=== PATIENT | female | born 1960 | race Caucasian/White ===

== ENCOUNTER 2019-12-07 10:24 | Outpatient (CLI) | payer MEDICARE, SELFPAY ==
--- NOTE | ~2019-12-07 | MM_ITS ---
EXAMINATION: MM screening [facility] BI w [facility]di HISTORY: Screening mammogram TECHNIQUE: Craniocaudal and mediolateral oblique 3-D tomosynthesis images were obtained and synthetic 2-D images were generated. CAD analysis was submitted and interpreted. COMPARISON: 10/16/2018, 03/19/2017, 10/19/2015 BREAST PARENCHYMAL COMPOSITION: The breasts are almost entirely fatty. FINDINGS: There is no evidence of suspicious mass, calcification, or architectural distortion to sugg est malignancy in either breast. There has been no suspicious interval change. IMPRESSION: 1. No mammographic evidence of malignancy. 2. Recommend routine screening mammography in one year. BI-RADS Category 1: Negative Reviewed, dictated and finalized at location A.
== END 2019-12-07 10:25 | disposition home or self-care (01) ==
LOC: ANHIMG 10:33
PROVIDERS: PCP Internal Medicine
DX: Z12.31 Encounter for screening mammogram for malignant neoplasm of breast (principal)
CPT/HCPCS: 77063; 77067

== ENCOUNTER 2021-01-04 18:07 | Emergency (ER) | payer MEDICARE, SELFPAY ==
--- NOTE | ~2021-01-04 | XR_ITS ---
EXAMINATION: XR chest 2V DATE: 01/04/2021 18:38 INDICATION: Asthma, shortness of breath and wheezing TECHNIQUE: PA and lateral views of the chest were obtained. COMPARISON: Chest radiograph dated 08/13/2018 FINDINGS: The lungs remain clear with no focal airspace opacities, pulmonary edema, pleural effusion or pneumot horax. Normal azygos lobe and fissure at the right upper lung zone. The cardiomediastinal silhouette is normal. Chronic mild anterior wedging at T11. There are bridging osteophytes at multiple levels in the spine, consistent with diffuse idiopathic skeletal hyperostosis (DISH). IMPRESSION: 1. No acute cardiopulmonary disease. Reviewed, dictated and finalized at location A.
[2021-01-04 18:19] VITALS: BP 172/95; PULSE 87; RESP 22; TEMP 36.9; O2SAT 98
--- NOTE | 2021-01-04 18:21 | ECG_ITS ---
Measurements Intervals [place] Rate: 80 P: 37 CT: 181 QRS: 53 QRSD: 90 T: 42 QT: 347 QTc: 401 Interpretive Statements SINUS RHYTHM BASELINE ARTIFACT- I, II, III, AVR, AVL, AVF, V2, V4-V6 NORMAL ECG Electronically Signed On 01-04-2021 19:37:19 CDT by Saurav Longo D.O.
[2021-01-04 18:40] LABS: Basophils Absolute Auto 0.1 K/mm3 (0.0-0.1); Basophils Percent Auto 0.4 % (0.2-1.2); Eosinophils Absolute Auto 0.2 K/mm3 (0-0.3); Eosinophils Percent Auto 1.4 % (0-4.4); Hematocrit 40.4 % (37.0-47.0); Hemoglobin 12.9 g/dL (12.0-15.0); Immature Granulocyte Absolute 0.06 K/mm3 (0.00-0.031); Immature Granulocyte Percent A 0.5 % (0-0.5); Lymphocytes Absolute Auto 3.24 K/mm3 (0.9-3.2); Lymphocytes Percent Auto 27.5 % (18.3-44.2); Mean Corpuscular HGB Conc 31.9 g/dl (32-36); Mean Corpuscular Hemoglobin 29.9 pg (26-34); Mean Corpuscular Volume 93.5 fl (80-100); Mean Platelet Volume 10.1 fl (7.4-10.4); Monocytes Absolute Auto 0.9 K/mm3 (0.1-0.6); Monocytes Percent Auto 7.8 % (2.6-8.5); Neutrophils Absolute Auto 7.4 K/mm3 (1.3-6.7); Neutrophils Percent Auto 62.4 % (45.5-73.1); Platelet Count Result 236 k/mm3 (150-375); Red Blood Count 4.32 M/mm3 (4.2-5.4); White Blood Count 11.8 K/mm3 (4.5-10.0)
[2021-01-04 18:52] LABS: Anion Gap 8 mmol/L (8-16); Blood Urea Nitrogen 18 mg/dL (7-17); Calcium 9.3 mg/dL (8.4-10.2); Carbon Dioxide 28 mmol/L (22-30); Chloride 102 mmol/L (98-107); Estimated CRCL calculation 80 ml/min; Estimated Glomerular Filt Rate 51; Glucose 129 mg/dL (65-110); Potassium 4.2 mmol/L (3.4-5.0); Sodium 138 mmol/L (137-145)
[2021-01-04 22:00] VITALS: BP 149/88; PULSE 80; RESP 16; O2SAT 98
[2021-01-04] MEDS: ALBUTEROL SULFATE NEB 2.5 MG/0.5 ML INH 5 MG INHALATION (22:17)
[2021-01-04] MEDS: IPRATROPIUM BR 0.02% INH SOLN 0.5 MG/2.5 ML VIAL INHALATION (22:18)
[2021-01-04 22:21] VITALS: PULSE 77; RESP 18
[2021-01-04 22:26] VITALS: PULSE 88; RESP 18
[2021-01-04] MEDS: methylPREDNISolone SOD SUCC 125 MG VIAL IV PUSH (22:35)
[2021-01-04] MEDS: BENZONATATE 100 MG CAPSULE 200 MG PO (22:37)
--- NOTE | 2021-01-04 23:10 | ED.GENADULT ---
HPI - General Adult General Chief complaint: Shortness of Breath/Dyspnea Stated complaint: sob Time Seen by Provider: 01/04/21 21:54 History of Present Illness HPI narrative: Patient 60-year-old female presents the emergency department with chief complaint of wheezing and shortness of breath. Patient reports she has history of asthma reports that she has had a little bit of a productive cough and reports that her rescue inhaler is not been completely helping her asthma symptoms. Patient reports that she called her doctor who said that they are not seeing sick patients in the office due to Covid and recommend that she come to the emergency department for a chest x-ray and a Covid test. Patient states that she is not having any hypoxia at home and reports this feels similar to whenever she had asthma exacerbations before in the past. Related Data Home Medications Medication Instructions Recorded Confirmed albuterol sulfate 90 mcg/actuation 2 puff INHALATION Q4-6H PRN gm 04/14/19 07/10/20 aerosol inhaler cholecalciferol (vitamin D3) 25 1,000 unit PO DAILY 04/14/19 07/10/20 mcg (1,000 unit) capsule fluticasone furoate 200 1 inhalation INHALATION DAILY 04/14/19 07/10/20 mcg-vilanterol 25 mcg/dose inhalation powder amino acids tablet PO DAILY tablet 10/26/19 07/10/20 apple cider vinegar 500 mg tablet 1,000 - 1,500 mg PO DAILY tablet 10/26/19 07/10/20 biotin 5,000 mcg sublingual tablet 5,000 mcg SUBLINGUAL DAILY 10/26/19 07/10/20 coconut oil 1,000 mg capsule mg PO DAILY cap 10/26/19 07/10/20 coenzyme Q10 100 mg capsule 100 mg PO DAILY 10/26/19 07/10/20 flaxseed oil-omega 3,6,9-fatty cap PO DAILY cap 10/26/19 07/10/20 acids 1,200 mg-540 mg-132 mg capsule magnesium 250 mg tablet 250 mg PO DAILY 10/26/19 07/10/20 [id number] 18 mg-FA 400 tablet PO DAILY tablet 10/26/19 07/10/20 mcg-calcium 500 mg-vit K 50 mcg tablet selenium 200 mcg capsule 200 mcg PO DAILY 10/26/19 07/10/20 vit A-vit C-zinc-herb comp 15 lozenge PO DAILY 10/26/19 07/10/20 lozenges vitamin E (dl, acetate) 180 mg 400 unit PO DAILY 10/26/19 07/10/20 (400 unit) capsule Allergies Allergy/AdvReac Type Severity Reaction Status Date / Time gramicidin D Allergy Mild Itching Verified 01/04/21 21:56 neomycin Allergy Mild Itching Verified 01/04/21 21:56 bacitracin Allergy Unknown Itching Verified 01/04/21 21:56 indomethacin Allergy Unknown Hives Verified 01/04/21 21:56 Iodinated Contrast Media Allergy Unknown Anaphylactic Verified 01/04/21 21:56 Shock iodine Allergy Unknown Anaphylactic Verified 01/04/21 21:56 Shock Penicillins Allergy Unknown Anaphylactic Verified 01/04/21 21:56 Shock polymyxin B Allergy Unknown Unknown Verified 01/04/21 21:56 shellfish derived Allergy Unknown Anaphylactic Verified 01/04/21 21:56 Shock Sulfa (Sulfonamide Allergy Unknown Anaphylactic Verified 01/04/21 21:56 Antibiotics) Shock Contrast Media Allergy Intermediate Anaphylactic Uncoded 01/04/21 21:56 Shock IVP DYE Allergy Mild HIVES Uncoded 01/04/21 21:56 SHELL FISH Allergy Mild HIVES Uncoded 01/04/21 21:56 TRAMADOL HCL Allergy Unknown Hives Uncoded 01/04/21 21:56 Review of Systems Review of Systems: A 10 system review of systems was completed on the patient and is negative except for what is stated in the HPI. Nursing and ancillary documentation was reviewed. PMF Past Medical History Medical History Dyspnea on exertion Elevated BP without diagnosis of hypertension Lower extremity pain Family History Family History Sibling Family history of multiple sclerosis Mother Family history of lung disease Family history of tremor Family history of multiple sclerosis Father Patient's father is in good health Other Family history of cardiovascular disease Family history of heart disease in male family
[2021-01-04 23:21] VITALS: BP 144/78; PULSE 77; RESP 18; O2SAT 100
[2021-01-06 04:09] LABS: SARS-CoV-2 RNA PCR Negative
== END 2021-01-04 23:22 | disposition home or self-care (01) ==
PROVIDERS: Emergency Medicine; Emergency Provider Emergency Medicine; PCP Internal Medicine
DX: J45.901 Unspecified asthma with (acute) exacerbation (principal); Z20.822 Contact with and (suspected) exposure to COVID-19
CPT/HCPCS: 36415; 71046; 80048; 85025; 93005; 94640; 96374; 99284; A9270; C9803; J2930; U0003; U0005

== ENCOUNTER → 2021-01-12 03:52 | Outpatient (CLI) | payer MEDICARE, SELFPAY ==
[2021-01-12 20:12] LABS: SARS-CoV-2 RNA PCR Negative
== END ==
PROVIDERS: PCP Internal Medicine; Visit Provider Clinical Nurse Specialist
DX: R05 Cough (principal); Z20.822 Contact with and (suspected) exposure to COVID-19
CPT/HCPCS: C9803; U0003; U0005

== ENCOUNTER 2021-03-08 10:03 | Outpatient (RCR) | payer MEDICARE, SELFPAY ==
--- NOTE | 2021-03-08 11:48 | PTOPEVAL ---
PHYSICAL THERAPY EVALUATION AND PLAN OF CARE 03-08-21 Thank you for referring Amanda Martinez to [facility].? Amanda is scheduled to be seen for therapy? 1-2 x/week for 5 weeks. Please review, sign, date and return this plan of care YARY. I agree with and certify that the following plan of care is medically necessary. Referring Physician Date Attending Provider: Meghan Da Silva, POORNIMA *PT Outpatient Evaluation Document 03/08/21 10:30 CLAIRE (Rec: 03/08/21 11:48 CLAIRE [id number]) Past Medical History Source of Past Medical History Patient Neurological History Hx Neurological Disorders No Significant History Cardiovascular History Hx Hypertension Yes: meds, usually 120/80 Respiratory History Hx Asthma Yes Gastrointestinal History Hx Gastrointestinal Disorders No Significant History Genitourinary History Hx Other Genitourinary Disorders Yes: urinary incontinence Musculoskeletal History Hx Arthritis Yes: arthritis all joints; Hx Other Musculoskeletal Disorders Yes: L leg vein surgery, Klippel; Endocrine History Hx Endocrine Disorders No Significant History HEENT History Hx Other HEENT Disorders Yes: wear glasses, bifocals; have regular eye exams, due in Dec Reproductive History Hx Section Yes Other History Hx Cancer Yes: cervcial- surgical removal; Hx Other Medical Conditions Yes: obesity Evaluation Information Problem Diagnosis dizziness Onset Jan 24, 2021 Prior Level of Function Activity Level (Last 3 Months) Occupation not working outside of home/ on disablity Indoor/Home Mobility Independent Shopping No Driving Yes Home Setting Home Type House Living Situation Alone Support Available Local Family Support Mobility Assistive Devices (Used Last 3 None,Cane Months) Bathroom Environment Bathtub, Standard Bathing Equipment Grab Bars,Tub Seat With Back Toileting Equipment Commode, Bedside Comments Additional Prior Level of Function father lives close and assists Comments ; other family near by; they bring her meals, are present when she takes a shower due to fear of falling; have not had any falls; driving is limited to short distances, try to have someone with her in c
--- NOTE | 2021-08-20 14:58 | PCPTNOTE ---
PHYSICAL THERAPY DISCHARGE 08-20-21 late entry Attending Provider: POORNIMA Curiel Patient:Amanda Martinez Date of :1960 Ms. Martinez has not returned for any further treatments since the PT evaluation on 03/08/2021, for the diagnosis of dizziness. Therefore she will be discharged at this time. Thank you for referring Amanda to [facility]. Please review, sign, date and return this discharge summary YARY. I have been updated about the patient's current status and I agree with discharge from the above service at this time. Referring Physician Date
== END 2021-05-29 08:41 | disposition home or self-care (01) ==
LOC: ANHPT 10:03
PROVIDERS: PCP Internal Medicine; Visit Provider Clinical Nurse Specialist
DX: R42 Dizziness and giddiness (principal)
CPT/HCPCS: 97162

== ENCOUNTER 2021-03-29 08:39 | Outpatient (CLI) | payer MEDICARE, SELFPAY ==
--- NOTE | ~2021-03-29 | MM_ITS ---
EXAMINATION: MM screening [facility] HISTORY: Screening TECHNIQUE: Craniocaudal and mediolateral oblique 3-D tomosynthesis images were obtained and synthetic 2-D images were generated. CAD analysis was submitted and interpreted. COMPARISON: Comparison to multiple prior studies sequentially, with oldest reviewed study dated 08/03. BREAST PARENCHYMAL COMPOSITION: Breast composed of scattered areas of fibroglandular density FINDINGS: There is no evidence of suspicious mass, calcification, or architectural distortion to sugg est malignancy in either breast. There has been no suspicious interval change. IMPRESSION: 1. No mammographic evidence of malignancy. 2. Recommend routine screening mammography in one year. BI-RADS Category 1: Negative Reviewed, dictated and finalized at location A.
--- NOTE | ~2021-03-29 | DEXA_ITS ---
Bone Density Report Name: Amanda Martinez Age: 60 Sex: Female Ethnicity: White Date of : 1960 Indication: postmenopausal; height loss; cancer; asthma or emphysema; hysterectomy; Referring Provider: Anna Shannon Study: Bone densitometry was performed. Exam Date: March 29, 2021 Accession number: [id number] Bone Density: Region BMD T-score Z-score Classification AP Spine (L1, L2, L3) 1.209 1.7 3.1 Normal Femoral Neck (Left) 0.817 -0.3 1.0 Normal Total Hip (Left) 1.054 0.9 1.8 Normal Total Hip Bilateral Avg 0.964 0.1 1.1 Normal Femoral Neck (Right) 0.665 -1.7 -0.4 Osteopenia Total Hip (Right) 0.873 -0.6 0.3 Normal World Health Organization criteria for BMD impression classify patients as: Normal (T-score at or above -1.0), Osteopenia (T-score between -1.0 and -2.5), or Osteoporosis (T-score at or below -2.5). 10-year Fracture Risk(1): Major Osteoporotic Fracture 6.6% Hip Fracture 0.5% Reported Risk Factors: [place] (), Neck BMD=0.665, BMI=50.4 Input outside FRAX(R) limits. Adjusted to:Xshynl=021 kg (1) FRAX(R) Version 3.08. Fracture probability calculated for an untreated patient. Fracture probability may be lower if the patient has received treatment. Clinical Information Provided by Patient: Has used the following medications: Vitamin D, Calcium Has the following medical conditions: Asthma or Emphysema, Cancer, Hysterectomy Patient maximum height was 65 Menopause Age: 49 Does not regularly consume dairy products Onset of menses at age 10 Number of children 1 Impression: The patient has low bone mass, based on the Right Femoral Neck T-score. The patient has an estimated ten-year risk of hip fracture of 0.5% and an estimated ten-year risk of major fracture of 6.6%, based on the WHO FRAX algorithm. Discussion: BONE DENSITY IS LOW AT ONE OR MORE SKELETAL SITES. This patient's lowest T-score is low at one or more skeletal sites. It meets the World Health Organization's (WHO) criteria for ?low bone mass? (T-score between -1.0 and -2.5). The patient's 10-year risk of fracture as calculated by FRAX is less than the threshold where pharmacological therapy is recommended by the National Osteoporosis Foundation (NOF). However, all treatment decisions require clinical judgment and consideration of individual patient factors, including patient preferences, comorbidities, previous drug use, risk factors not captured in the FRAX model (e.g., frailty, falls, vitamin D deficiency, increased bone turnover, interval significant decline in bone density) and possible under or overestimation of fracture risk by FRAX. The patient should follow a healthful lifestyle (good nutrition with adequate calcium and vitamin D, and appropriate weight-bearing exercise). Follow-Up: Consider repeating this study
== END 2021-03-29 08:40 | disposition home or self-care (01) ==
PROVIDERS: PCP Internal Medicine; Visit Provider Nurse Practitioner
DX: Z12.31 Encounter for screening mammogram for malignant neoplasm of breast (principal); Z78.0 Asymptomatic menopausal state; M85.851 Other specified disorders of bone density and structure, right thigh
CPT/HCPCS: 77063; 77067; 77080

== ENCOUNTER → 2021-05-22 08:47 | Outpatient (CLI) | payer MEDICARE, SELFPAY ==
[2021-05-22 18:06] LABS: Influenza Control Positive
[2021-05-23 03:58] LABS: SARS-CoV-2 RNA PCR Positive
== END ==
PROVIDERS: PCP Internal Medicine; Visit Provider Internal Medicine
DX: U07.1 COVID-19 (principal)
CPT/HCPCS: 87804; C9803; U0003; U0005

== ENCOUNTER 2021-05-23 13:45 | Emergency (ER) | payer MEDICARE, SELFPAY ==
--- NOTE | ~2021-05-23 | XR_ITS ---
EXAMINATION: XR chest 1V portable EXAM DATE: 05/23/2021 14:46 INDICATION: COVID. WEAKNESS. SOB. TECHNIQUE: Portable AP frontal chest x-ray was obtained. Comparison is made to prior examination from 01/04/2021. FINDINGS: Exam somewhat underpenetrated but suspect some patchy ill-defined regions of acute airspace disease, could be COVID pneumonia. No dense confluent consolidation, pneumothorax or pleural effusio n. Cardiomediastinal silhouette is normal. Dysphagia. There are mild bony degenerative changes. IMPRESSION: Probable small regions acute airspace disease, COVID pneumonia. Reviewed, dictated and finalized at location A. [employer]PER[employer]
[2021-05-23 13:52] VITALS: BP 149/80; PULSE 93; RESP 16; TEMP 36.2; O2SAT 94
[2021-05-23 14:31] VITALS: BP 171/98; PULSE 90; RESP 18; O2SAT 94
[2021-05-23 14:32] VITALS: BP 171/98; PULSE 87; RESP 17; O2SAT 93
[2021-05-23] MEDS: SODIUM CHLORIDE 0.9% IV 1,000 ML 999 ML IV CONT (15:30)
[2021-05-23] MEDS: ONDANSETRON INJ 4 MG/2 ML VIAL IV PUSH (15:30)
[2021-05-23 15:39] LABS: Add Urine Microscopic? YES; Appearance Urine Cloudy (Clear); Bacteria Urine Trace /hpf; Bilirubin Urine Negative (Negative); Blood Urine 3+ (Negative); Color Urine Amber (Yellow); Glucose Urine UA Negative (Negative); Ketones Urine Trace mg/dL (Negative); Leukocyte Esterase Ur Trace LEU/UL (Negative); Mucus Urine Few /lpf; Nitrate Urine Negative (Negative); Protein Urine 2+ mg/dL (Negative); RBC Urine >75 /hpf (0-2); Specific Grav Ur 1.026 (1.001-1.035); Squamous Epithelial Cell Urine Many /hpf (Few); Urobilinogen Urine Negative mg/dL (<2.0); WBC Urine 51-75 /hpf
--- NOTE | 2021-05-23 15:41 | ED.GENADULT ---
HPI - General Adult General Chief complaint: Nausea/Vomiting/Diarrhea Stated complaint: COVID+ 05/22 Time Seen by Provider: 05/23/21 14:33 Source: patient Mode of arrival: wheelchair Limitations: no limitations History of Present Illness HPI narrative: Patient is 60-year-old female with chief complaint of sinus discomfort and fatigue after testing positive for Covid on 05-22-21. Patient reports that her symptoms started on 05-17-21. She reports her primary care ordered a flu and Covid test and the Covid test came back positive. Patient reports that she has been having diarrhea and nausea. Her primary care ordered monoclonal antibodies and wanted her to receive fluid hydration due to diarrhea. Patient denies fevers, shortness of breath or chest pain. Related Data Home Medications Medication Instructions Recorded Confirmed albuterol sulfate 90 mcg/actuation 2 puff INHALATION Q4-6H PRN gm 04/14/19 02/28/21 aerosol inhaler fluticasone furoate 200 1 inhalation INHALATION DAILY 04/14/19 02/28/21 mcg-vilanterol 25 mcg/dose inhalation powder amino acids tablet PO DAILY tablet 10/26/19 02/28/21 apple cider vinegar 500 mg tablet 1,000 - 1,500 mg PO DAILY tablet 10/26/19 02/28/21 biotin 5,000 mcg sublingual tablet 5,000 mcg SUBLINGUAL DAILY 10/26/19 02/28/21 coconut oil 1,000 mg capsule mg PO DAILY cap 10/26/19 02/28/21 coenzyme Q10 100 mg capsule 100 mg PO DAILY 10/26/19 02/28/21 flaxseed oil-omega 3,6,9-fatty cap PO DAILY cap 10/26/19 02/28/21 acids 1,200 mg-540 mg-132 mg capsule magnesium 250 mg tablet 250 mg PO DAILY 10/26/19 02/28/21 [id number]-[id number] 18 mg-FA 400 tablet PO DAILY tablet 10/26/19 02/28/21 mcg-calcium 500 mg-vit K 50 mcg tablet selenium 200 mcg capsule 200 mcg PO DAILY 10/26/19 02/28/21 vit A-vit C-zinc-herb comp 15 lozenge PO DAILY 10/26/19 02/28/21 lozenges vitamin E (dl, acetate) 180 mg 400 unit PO DAILY 10/26/19 02/28/21 (400 unit) capsule cholecalciferol (vitamin D3) 25 5,000 unit PO DAILY cap 02/28/21 02/28/21 mcg (1,000 unit) capsule Allergies Allergy/AdvReac Type Severity Reaction Status Date / Time gramicidin D Allergy Mild Itching Verified 02/01/21 11:07 neomycin Allergy Mild Itching Verified 02/01/21 11:07 bacitracin Allergy Unknown Itching Verified 02/01/21 11:07 indomethacin Allergy Unknown Hives Verified 02/01/21 11:07 Iodinated Contrast Media Allergy Unknown Anaphylactic Verified 02/01/21 11:07 Shock iodine Allergy Unknown Anaphylactic Verified 02/01/21 11:07 Shock Penicillins Allergy Unknown Anaphylactic Verified 02/01/21 11:07 Shock polymyxin B Allergy Unknown Unknown Verified 01/04/21 21:56 shellfish derived Allergy Unknown Anaphylactic Verified 01/04/21 21:56 Shock Sulfa (Sulfonamide Allergy Unknown Anaphylactic Verified 01/04/21 21:56 Antibiotics) Shock Contrast Media Allergy Intermediate Anaphylactic Uncoded 01/04/21 21:56 Shock IVP DYE Allergy Mild HIVES Uncoded 01/04/21 21:56 SHELL FISH Allergy Mild HIVES Uncoded 01/04/21 21:56 TRAMADOL HCL Allergy Unknown Hives Uncoded 01/04/21 21:56 Review of Systems Review of Systems: CONSTITUTIONAL: Reports fatigue denies fever, chills, or sweats. EYES: Denies visual changes, redness, or discharge. ENT: Denies rhinorrhea, congestion, sore throat, or otalgia. CARDIOVASCULAR: Denies chest pain, palpitations, or edema. RESPIRATORY: Reports cough denies dyspnea. GASTROINTESTINAL: Reports nausea and diarrhea denies abdominal pain, vomiting GENITOURINARY: Denies dysuria or hematuria. SKIN: Denies rash or itching. MUSCULOSKELETAL: Denies back pain, joint pain, or myalgia. NEUROLOGIC: Denies headache, numbness, dizziness, or weakness. PSYCHIATRIC: Denies anxiety or depression. [facility] Past Medical History Medical History Dyspnea on exertion Elevated BP without diagnosis of hypertension Hx of ovarian cancer Lower extremity pain Family His
[2021-05-23 15:43] LABS: Alanine Aminotransferase 56 U/L (4-35); Albumin Level 4.5 g/dL (3.5-5.1); Alkaline Phosphatase 79 U/L (38-126); Anion Gap 8 mmol/L (8-16); Aspartate Amino Transferase 62 U/L (14-36); Bilirubin,Total 0.4 mg/dL (0.2-1.3); Blood Urea Nitrogen 13 mg/dL (7-17); Carbon Dioxide 24 mmol/L (22-30); Chloride 102 mmol/L (98-107); Estimated CRCL calculation 97 ml/min; Estimated Glomerular Filt Rate > 60; Glucose 120 mg/dL (65-110); Lipase 160 U/L (23-300); Potassium 4.2 mmol/L (3.4-5.0); Sodium 134 mmol/L (137-145)
[2021-05-23 15:48] LABS: Basophils Percent Auto 0.2 % (0.2-1.2); Hematocrit 43.8 % (37.0-47.0); Hemoglobin 14.6 g/dL (12.0-15.0); Immature Granulocyte Absolute 0.02 K/mm3 (0.00-0.031); Immature Granulocyte Percent A 0.4 % (0-0.5); Immature Platelet Fraction Pct 3.2 % (0.9-11.2); Lymphocytes Absolute Auto 1.03 K/mm3 (0.9-3.2); Lymphocytes Percent Auto 19.4 % (18.3-44.2); Mean Corpuscular HGB Conc 33.3 g/dl (32-36); Mean Corpuscular Hemoglobin 30.2 pg (26-34); Mean Corpuscular Volume 90.5 fl (80-100); Mean Platelet Volume 10.8 fl (7.4-10.4); Monocytes Absolute Auto 0.5 K/mm3 (0.1-0.6); Monocytes Percent Auto 8.5 % (2.6-8.5); Neutrophils Absolute Auto 3.8 K/mm3 (1.3-6.7); Neutrophils Percent Auto 71.5 % (45.5-73.1); Platelet Count Result 137 k/mm3 (150-375); Red Blood Count 4.84 M/mm3 (4.2-5.4); Red Cell Distribution Width 13.3 % (11.5-14.5); White Blood Count 5.3 K/mm3 (4.5-10.0)
[2021-05-23 17:50] VITALS: BP 155/83; O2SAT 94
--- NOTE | 2021-05-31 07:26 | PC.NURSE ---
Addendum entered by Soha Terrell RN 05/31/21 07:26: This medication was on 05/23/21 Original Note: This nurse completed the pt normal saline at 1600 for 1 liter.
== END 2021-05-23 18:50 | disposition home or self-care (01) ==
PROVIDERS: Emergency Provider Emergency Medicine; PCP Internal Medicine
DX: U07.1 COVID-19 (principal); Z85.43 Personal history of malignant neoplasm of ovary; R82.998 Other abnormal findings in urine
CPT/HCPCS: 36415; 71045; 80053; 81001; 83690; 85025; 85055; 87077; 87086; 87088; 87186; 96361; 96374; 99284; J2405; J7030

== ENCOUNTER 2021-05-24 13:04 | Outpatient (RCR) | payer MEDICARE, SELFPAY ==
[2021-05-24 15:47] VITALS: BP 126/87; PULSE 104; RESP 20; TEMP 35.9; O2SAT 98
[2021-05-24] MEDS: ACETAMINOPHEN 325 MG TABLET 650 MG PO (15:54)
[2021-05-24] MEDS: FAMOTIDINE 20 MG TABLET PO (15:54)
[2021-05-24] MEDS: diphenhydrAMINE HCl CAP 25 MG CAPSULE PO (15:54)
[2021-05-24 16:54] VITALS: BP 126/84
== END 2021-05-24 17:04 ==
LOC: AMCINF 13:04
PROVIDERS: PCP Nurse Practitioner; Visit Provider Internal Medicine Hematology & Oncology
DX: U07.1 COVID-19 (principal); J44.9 Chronic obstructive pulmonary disease, unspecified
CPT/HCPCS: A9270; M0243; Q0244

== ENCOUNTER 2021-05-25 09:58 | Emergency (ER) | payer MEDICARE, SELFPAY ==
[2021-05-25 10:07] VITALS: BP 133/75; PULSE 93; RESP 20; TEMP 36.2; O2SAT 94
[2021-05-25 11:50] VITALS: BP 131/82; PULSE 89; RESP 14; O2SAT 95
--- NOTE | 2021-05-25 14:00 | PC.NURSE ---
pt left the er waiting room. tired of waiting
== END 2021-05-25 14:00 | disposition left against medical advice (07) ==
LOC: ANHED 16:49
PROVIDERS: PCP Internal Medicine
DX: Z53.21 Procedure and treatment not carried out due to patient leaving prior to being seen by health care provider (principal)
CPT/HCPCS: 99199

== ENCOUNTER 2021-08-08 09:04 | Outpatient (CLI) | payer MEDICARE, SELFPAY ==
--- NOTE | ~2021-08-08 | XR_ITS ---
EXAMINATION: XR chest 2V 08/08/2021 09:21 INDICATION: Cough PROCEDURE: 2 view chest COMPARISON: Comparison to multiple prior studies sequentially, with oldest reviewed study dated 07/2017. FINDINGS: The lungs are clear. The cardiomediastinal silhouette is within normal limits. There are no pleural effusions. There is no pneumothorax suspected. IMPRESSION: 1: NO ACUTE CARDIOPULMONARY DISEASE. Reviewed, dictated and finalized at location B.
== END 2021-08-08 09:05 | disposition home or self-care (01) ==
PROVIDERS: PCP Internal Medicine; Visit Provider Clinical Nurse Specialist
DX: R05.9 Cough, unspecified (principal)
CPT/HCPCS: 71046

== ENCOUNTER 2021-09-03 07:13 | Outpatient (CLI) | payer MEDICARE, SELFPAY ==
--- NOTE | ~2021-09-03 | US_ITS ---
EXAMINATION: US right upper quadrant DATE: 09/03/2021 07:45 INDICATION: Elevated liver function tests TECHNIQUE: Multiple grayscale and Doppler ultrasound images of the abdomen were obtained. COMPARISON: 09/29/2015 FINDINGS: The head and body of the pancreas are normal. The pancreatic tail is obscured by bowel gas. The liver demonstrates increased echogenicity, heterogenous echotexture, and decreased through trans mission. No surface nodularity. Normal hepatopetal flow in the main portal vein. The gallbladder is n ormal with no abnormal wall thickening, pericholecystic fluid or stones. The normal common bile duct measures 6 mm. There was no sonographic Vickers sign. IMPRESSION: 1. Diffuse hepatic steatosis. Reviewed, dictated and finalized at location A.
--- NOTE | ~2021-09-03 | NM_ITS ---
EXAMINATION: NM nahomy stress w perfusion DATE: 09/03/2021 10:21 INDICATION: Other forms of dyspnea. TECHNIQUE: Rest images were obtained following intravenous administration of 11.8 mCi Tc99m tetrofosm in (Myoview). The patient was infused intravenously with Lexiscan (regadenoson). Then, 35.4 mCi Tc99m tetrofosmin (Myoview) was administered intravenously, and stress images were obtained. Data was lalito nstructed into short axis and horizontal and vertical long axis SPECT images. Gated SPECT images were also obtained. COMPARISON: None. FINDINGS: There is no definite reversible or fixed perfusion abnormality to suggest ischemia or infar ction. There is no segmental wall motion abnormality. Left ventricular ejection fraction measures > 70%. IMPRESSION: 1. No definite ischemia or infarct. 2. Normal left ventricular ejection fraction measuring >70%. Reviewed, dictated and finalized at location A.
--- NOTE | 2021-09-03 08:34 | EST_ITS ---
Patient Info Name: Amanda Martinez Age: 60 years : 1960 Gender: Female Ht: 63 in Wt: 400 lbs BSA: 2.97 m2 HR: 70 bpm BP: 147 / 99 mmHg Heart Rhythm: Sinus Rhythm Exam Date: 09/03/2021 9:09 AM Exam Location: [facility] Stress Patient Status: Preadmit Admit Date: 09/03/2021 Staff Ordering Physician: Meghan Da Silva-C Attending Provider: Daniel Shrestha DO Exercise Technologist: Misty Collado CT Nurse: ALYSHA VELA Exam Type: CA stress nahomy w NM Study Info Indications R07.9 - Chest pain, unspecified A regadenoson stress test was performed. Summary 1. Normal sinus rhythm - normal ECG. 2. No ST segment abnormalities were seen following injection of Lexiscan. 3. Clinically and electrocardiographically unremarkable Lexiscan stress test. 4. Myocardial perfusion imaging exam to be reported by Radiology. Protocol: Lexiscan Stress ECG Details Stage: REST Duration (min): 0 min : 51 sec HR (bpm): 68 SBP (mmHg): 147 DBP (mmHg): 79 Stage: REST Duration (min): 12 min : 15 sec HR (bpm): 74 SBP (mmHg): 147 DBP (mmHg): 79 Stage: STAGE 1 Duration (min): 0 min : 59 sec HR (bpm): 95 SBP (mmHg): 147 DBP (mmHg): 79 Stage: RECOVERY Duration (min): 1 min : 0 sec HR (bpm): 87 SBP (mmHg): 197 DBP (mmHg): 87 Stage: RECOVERY Duration (min): 2 min : 0 sec HR (bpm): 84 SBP (mmHg): 197 DBP (mmHg): 87 Stage: RECOVERY Duration (min): 3 min : 0 sec HR (bpm): 81 SBP (mmHg): 197 DBP (mmHg): 87 Stage: RECOVERY Duration (min): 4 min : 0 sec HR (bpm): 83 SBP (mmHg): 212 DBP (mmHg): 87 Stage: RECOVERY Duration (min): 5 min : 0 sec HR (bpm): 80 SBP (mmHg): 212 DBP (mmHg): 87 Stage: RECOVERY Duration (min): 6 min : 0 sec HR (bpm): 75 SBP (mmHg): 212 DBP (mmHg): 87 Stage: RECOVERY Duration (min): 6 min : 46 sec HR (bpm): 78 SBP (mmHg): 181 DBP (mmHg): 88 Rest HR: 74 bpm Peak HR: 95 bpm Rest Sys BP: 147 mmHg Peak Sys BP: 212 mmHg Max Pred HR: 161 bpm % Max Pred HR: 59 % Target HR: 137 bpm Max RPP: 20,140 bpm*mmHg Termination Reason: Completed protocol Cardiac Symptoms: None Total Time: 1 min : 0 sec Rest Brooke BP: 79 mmHg Peak Brooke BP: 87 mmHg Total Dose: 0.4 mg Resting ECG Normal sinus rhythm - normal ECG. Stress ECG No ST segment abnormalities were seen following injection of Lexiscan. Report Signatures
== END 2021-09-03 07:14 | disposition home or self-care (01) ==
PROVIDERS: PCP Internal Medicine; Visit Provider Clinical Nurse Specialist
DX: R06.09 Other forms of dyspnea (principal); R74.8 Abnormal levels of other serum enzymes; K76.0 Fatty (change of) liver, not elsewhere classified
CPT/HCPCS: 76705; 78452; 93017; A9502; J2785

== ENCOUNTER 2021-11-08 17:33 | Emergency (ER) | payer MEDICARE, SELFPAY ==
[2021-11-08 17:36] VITALS: BP 144/88; PULSE 80; RESP 20; TEMP 36.7; O2SAT 98
--- NOTE | 2021-11-08 17:36 | ED.SKABFB ---
HPI - Skin/Abscess/Foreign Bdy General Chief complaint: Wound/Laceration Stated complaint: WASP STING Time Seen by Provider: 11/08/21 17:36 Source: patient and RN notes reviewed History of Present Illness HPI narrative: Patient is a 60-year-old female who presents the urgent care with complaints of a lasting to the left hand. Patient states it happened approximately 15 minutes prior to arrival and she is applied ice and use Benadryl. Denies of any shortness of breath or oral swelling. No other acute complaints. No acute distress noted. Patient aware of the plan of care. Some parts of this dictation were generated by voice recognition software and may contain typographical and/or grammatical inaccuracies. Related Data Home Medications Medication Instructions Recorded Confirmed albuterol sulfate 90 mcg/actuation 2 puff inhalation Q4-6H PRN 04/14/19 08/07/21 aerosol inhaler (ProAir HFA) Wheezing fluticasone furoate 200 1 inhalation inhalation DAILY 04/14/19 08/07/21 mcg-vilanterol 25 mcg/dose inhalation powder (Breo Ellipta) amino acids tablet PO DAILY 10/26/19 08/07/21 apple cider vinegar 500 mg tablet 1,000 - 1,500 mg PO DAILY 10/26/19 08/07/21 biotin 5,000 mcg sublingual tablet 5,000 mcg sublingual DAILY 10/26/19 08/07/21 coconut oil 1,000 mg capsule mg PO DAILY 10/26/19 08/07/21 coenzyme Q10 100 mg capsule (Co 100 mg PO DAILY 10/26/19 08/07/21 Q-10) flaxseed oil-omega 3,6,9-fatty cap PO DAILY 10/26/19 08/07/21 acids 1,200 mg-540 mg-132 mg capsule magnesium 250 mg tablet 250 mg PO DAILY 10/26/19 08/07/21 [id number] 18 mg-FA 400 tablet PO DAILY 10/26/19 08/07/21 mcg-calcium 500 mg-vit K 50 mcg tablet (Women's Multivitamin) selenium 200 mcg capsule 200 mcg PO DAILY 10/26/19 08/07/21 vit A-vit C-zinc-herb comp 15 lozenge PO DAILY 10/26/19 08/07/21 lozenges vitamin E (dl, acetate) 180 mg 400 unit PO DAILY 10/26/19 08/07/21 (400 unit) capsule cholecalciferol (vitamin D3) 25 5,000 unit PO DAILY 02/28/21 08/07/21 mcg (1,000 unit) capsule cranberry fruit concentrate 250 mg 250 mg PO TID 08/07/21 08/07/21 chewable tablet (Azo Cranberry) Allergies Allergy/AdvReac Type Severity Reaction Status Date / Time gramicidin D Allergy Mild Itching Verified 11/08/21 17:36 neomycin Allergy Mild Itching Verified 11/08/21 17:36 bacitracin Allergy Unknown Itching Verified 11/08/21 17:36 indomethacin Allergy Unknown Hives Verified 11/08/21 17:36 Iodinated Contrast Media Allergy Unknown Anaphylactic Verified 11/08/21 17:36 Shock iodine Allergy Unknown Anaphylactic Verified 11/08/21 17:36 Shock Penicillins Allergy Unknown Anaphylactic Verified 11/08/21 17:36 Shock polymyxin B Allergy Unknown Unknown Verified 11/08/21 17:36 shellfish derived Allergy Unknown Anaphylactic Verified 11/08/21 17:36 Shock Sulfa (Sulfonamide Allergy Unknown Anaphylactic Verified 11/08/21 17:36 Antibiotics) Shock Contrast Media Allergy Intermediate Anaphylactic Uncoded 11/08/21 17:36 Shock IVP DYE Allergy Mild HIVES Uncoded 11/08/21 17:36 SHELL FISH Allergy Mild HIVES Uncoded 11/08/21 17:36 TRAMADOL HCL Allergy Unknown Hives Uncoded 11/08/21 17:36 Review of Systems Review of Systems: CONSTITUTIONAL: Denies fever, chills, or sweats. EYES: Denies visual changes, redness, or discharge. ENT: Denies rhinorrhea, congestion, sore throat, or otalgia. CARDIOVASCULAR: Denies chest pain, palpitations, or edema. RESPIRATORY: Denies cough or dyspnea. GASTROINTESTINAL: Denies abdominal pain, nausea, vomiting, or diarrhea. GENITOURINARY: Denies dysuria or hematuria. SKIN: Reports of a wasp sting to the left palm MUSCULOSKELETAL: Denies back pain, joint pain, or myalgia. NEUROLOGIC: Denies headache, numbness, or weakness. All other systems reviewed are negative, except as documented in HPI. [facility] Past Medical History Medical History Dyspnea on exertion Elevate
[2021-11-08] MEDS: predniSONE 20 MG TABLET 60 MG PO (17:51)
--- NOTE | 2021-11-08 18:15 | PC.NURSE ---
1808 Solumedrol not given as discontinued by provider.
== END 2021-11-08 18:08 | disposition home or self-care (01) ==
PROVIDERS: Emergency Provider Nurse Practitioner Family; PCP Internal Medicine
DX: T63.461A Toxic effect of venom of wasps, accidental (unintentional), initial encounter (principal); Z85.43 Personal history of malignant neoplasm of ovary
CPT/HCPCS: 99213; G0463; J7512

== ENCOUNTER 2021-12-30 09:58 | Emergency (ER) | payer MEDICARE, SELFPAY ==
[2021-12-30 10:08] VITALS: BP 163/91; PULSE 98; RESP 20; TEMP 36.7; O2SAT 98
--- NOTE | 2021-12-30 10:18 | ED.EYEPROB ---
HPI - Eye Problem General Chief complaint: Eye Problems Stated complaint: left eye swelling/pain Time Seen by Provider: 12/30/21 10:10 Source: patient Mode of arrival: ambulatory Limitations: no limitations History of Present Illness HPI Narrative: Patient presents today complaining of pain and swelling to the left upper eyelid with some crustiness this morning when she woke up. Pain started yesterday. She has been applying warm packs with no relief. She has tried no other [id number] treatment prior to arrival. Denies vision changes. Related Data Home Medications Medication Instructions Recorded Confirmed albuterol sulfate 90 mcg/actuation 2 puff inhalation Q4-6H PRN 04/14/19 12/20/21 aerosol inhaler (ProAir HFA) Wheezing fluticasone furoate 200 1 inhalation inhalation DAILY 04/14/19 12/20/21 mcg-vilanterol 25 mcg/dose inhalation powder (Breo Ellipta) amino acids 1 tablet PO DAILY 10/26/19 12/20/21 apple cider vinegar 500 mg tablet 1,000 - 1,500 mg PO DAILY 10/26/19 12/20/21 biotin 5,000 mcg sublingual tablet 5,000 mcg sublingual DAILY 10/26/19 12/20/21 coconut oil 1,000 mg capsule 1,000 mg PO DAILY 10/26/19 12/20/21 coenzyme Q10 100 mg capsule (Co 100 mg PO DAILY 10/26/19 12/20/21 Q-10) flaxseed oil-omega 3,6,9-fatty 1 cap PO DAILY 10/26/19 12/20/21 acids 1,200 mg-540 mg-132 mg capsule magnesium 250 mg tablet 250 mg PO DAILY 10/26/19 12/20/21 [id number] 18 mg-FA 400 1 tablet PO DAILY 10/26/19 12/20/21 mcg-calcium 500 mg-vit K 50 mcg tablet (Women's Multivitamin) selenium 200 mcg capsule 200 mcg PO DAILY 10/26/19 12/20/21 vit A-vit C-zinc-herb comp 15 1 lozenge PO DAILY 10/26/19 12/20/21 lozenges vitamin E (dl, acetate) 180 mg 400 unit PO DAILY 10/26/19 12/20/21 (400 unit) capsule cholecalciferol (vitamin D3) 25 5,000 unit PO DAILY 02/28/21 12/20/21 mcg (1,000 unit) capsule cranberry fruit concentrate 250 mg 250 mg PO TID 08/07/21 12/20/21 chewable tablet (Azo Cranberry) epinephrine 0.3 mg/0.3 mL 0.3 mg IM ONCE PRN Allergic 11/08/21 12/20/21 injection, auto-injector Symptoms Lactobacillus acidophilus 10 10,000 mmu cells PO DAILY 12/20/21 12/20/21 billion cell capsule (Probiotic) black seed oil See Rx Instructions BYMOUTH 12/20/21 12/20/21 .COMPLEX Allergies Allergy/AdvReac Type Severity Reaction Status Date / Time gramicidin D Allergy Mild Itching Verified 12/20/21 11:02 neomycin Allergy Mild Itching Verified 12/20/21 11:02 bacitracin Allergy Unknown Itching Verified 12/20/21 11:02 indomethacin Allergy Unknown Hives Verified 12/20/21 11:02 Iodinated Contrast Media Allergy Unknown Anaphylactic Verified 12/20/21 11:02 Shock iodine Allergy Unknown Anaphylactic Verified 12/20/21 11:02 Shock Penicillins Allergy Unknown Anaphylactic Verified 12/20/21 11:02 Shock polymyxin B Allergy Unknown Unknown Verified 12/20/21 11:02 shellfish derived Allergy Unknown Anaphylactic Verified 12/20/21 11:02 Shock Sulfa (Sulfonamide Allergy Unknown Anaphylactic Verified 12/20/21 11:02 Antibiotics) Shock Contrast Media Allergy Intermediate Anaphylactic Uncoded 12/20/21 11:02 Shock IVP DYE Allergy Mild HIVES Uncoded 12/20/21 11:02 SHELL FISH Allergy Mild HIVES Uncoded 12/20/21 11:02 TRAMADOL HCL Allergy Unknown Hives Uncoded 12/20/21 11:02 Review of Systems Review of Systems: CONSTITUTIONAL: Denies body aches, fever, chills, or sweats. EYES: Denies visual changes, redness, or discharge.+ Left upper eyelid swelling and pain ENT: Denies rhinorrhea, congestion, sore throat, or otalgia. CARDIOVASCULAR: Denies chest pain, palpitations, or edema. RESPIRATORY: Denies cough or dyspnea. GASTROINTESTINAL: Denies abdominal pain, nausea, vomiting, or diarrhea. GENITOURINARY: Denies dysuria or hematuria. SKIN: Denies rash, itching, or wounds. MUSCULOSKELETAL: Denies back pain, joint pain, or myalgia. NEUROLOGIC: Denies headache, numbness, tingling, or weakness. PSYCH: Denies
== END 2021-12-30 10:33 | disposition home or self-care (01) ==
PROVIDERS: Emergency Provider Nurse Practitioner; PCP Internal Medicine
DX: H00.014 Hordeolum externum left upper eyelid (principal); Z85.43 Personal history of malignant neoplasm of ovary
CPT/HCPCS: 99213; G0463

== ENCOUNTER → 2022-04-03 09:02 | Outpatient (CLI) | payer MEDICARE, SELFPAY ==
--- NOTE | ~2022-04-03 | XR_ITS ---
EXAMINATION: XR chest 2V DATE: 04/03/2022 09:16 INDICATION: Cough TECHNIQUE: Frontal and lateral views of the chest are obtained COMPARISON: 08/08/2021 FINDINGS: There are minimal airspace opacities of the right lung base. No pleural effusion or pneumot horax. The cardiomediastinal silhouette is normal. There is moderate thoracic spondylosis. IMPRESSION: 1. Right basilar airspace opacity, consistent with atelectasis versus pneumonia. Recommend followup r adiographs in 10-14 days after appropriate therapy to evaluate for improvement/resolution. Reviewed, dictated and finalized at location B. TREATING INSPECTOR IMPRESSION: 1. Right basilar airspace opacity, consistent with atelectasis versus pneumonia . Recommend followup radiographs in 10-14 days after appropriate therapy to regulo luate for improvement/resolution.
== END ==
PROVIDERS: PCP Internal Medicine; Visit Provider Clinical Nurse Specialist
DX: R05.9 Cough, unspecified (principal); R91.8 Other nonspecific abnormal finding of lung field
CPT/HCPCS: 71046

== ENCOUNTER → 2022-04-16 08:23 | Outpatient (CLI) | payer MEDICARE, SELFPAY ==
--- NOTE | ~2022-04-16 | XR_ITS ---
EXAMINATION: XR chest 2V 04/16/2022 08:35 INDICATION: Pneumonia PROCEDURE: 2 view chest COMPARISON: Comparison to multiple prior studies sequentially, with oldest reviewed study dated 01/04. FINDINGS: The lungs are clear. The cardiomediastinal silhouette is within normal limits. There are no pleural effusions. There is no pneumothorax suspected. IMPRESSION: 1: NO ACUTE CARDIOPULMONARY DISEASE. Reviewed, dictated and finalized at location D. EY ROOM CUSTODIAN
== END ==
PROVIDERS: PCP Clinical Nurse Specialist; Visit Provider Clinical Nurse Specialist
DX: J18.9 Pneumonia, unspecified organism (principal)
CPT/HCPCS: 71046

== ENCOUNTER 2022-08-02 20:03 | Outpatient (NON) | payer MEDICARE, SELFPAY | END 2022-08-02 20:04 | disposition home or self-care (01) | LOC: ANHOBOP 20:04 | PROVIDERS: PCP Clinical Nurse Specialist; Visit Provider Nurse Practitioner Family | DX: R39.9 Unspecified symptoms and signs involving the genitourinary system (principal) | CPT/HCPCS: 87077; 87086; 87186 ==

== ENCOUNTER → 2022-09-03 08:45 | Outpatient (CLI) | payer MEDICARE, SELFPAY ==
--- NOTE | ~2022-09-03 | XR_ITS ---
EXAMINATION: XR chest 2V DATE: 09/03/2022 09:01 INDICATION: Cough. TECHNIQUE: Frontal and lateral views of the chest were obtained. COMPARISON: Chest 2 views 04/16/2022 FINDINGS: The chest demonstrates clear lungs without pneumonia, pleural effusion, or pneumothorax. Th e heart size is normal. There is mild chronic anterior wedging of a lower thoracic vertebral body. IMPRESSION: 1. No acute cardiopulmonary disease. Reviewed, dictated and finalized at location A.
== END ==
PROVIDERS: PCP Internal Medicine; Visit Provider Clinical Nurse Specialist
DX: R05.9 Cough, unspecified (principal)
CPT/HCPCS: 71046

== ENCOUNTER → 2022-09-10 08:19 | Outpatient (CLI) | payer MEDICARE, SELFPAY ==
--- NOTE | ~2022-09-10 | CT_ITS ---
CT Scan of the Chest without Contrast: Clinical Indication: Recurrent lung infection Technique: Contiguous sections were acquired throughout the chest without intravenous contrast. Dose reduction technique was used on this scan by utilizing automated exposure control and iterative recon struction technique. The dose-length product (DLP) was 802.66 mGy-cm. Findings: There is no evidence of any significant mediastinal, hilar or axillary lymphadenopathy. The mediastin al soft tissues appear normal. There is no evidence of pleural or pericardial effusion. The lungs are clear. No pulmonary nodules or infiltrates are noted. Images through the upper abdomen reveal no abnormalities. DISH of the thoracic spine noted. Impression: Clear lungs. No significant pulmonary abnormality identified. Reviewed, dictated and finalized at location . Impression: Clear lungs. No significant pulmonary abnormality identified.
== END ==
PROVIDERS: PCP Internal Medicine; Visit Provider Clinical Nurse Specialist
DX: J18.9 Pneumonia, unspecified organism (principal); J45.41 Moderate persistent asthma with (acute) exacerbation; J40 Bronchitis, not specified as acute or chronic; R06.09 Other forms of dyspnea
CPT/HCPCS: 71250

== ENCOUNTER 2022-09-18 08:51 | Outpatient (CLI) | payer MEDICARE, SELFPAY ==
--- NOTE | 2022-09-18 13:00 | WPDPFTINT ---
PFT Procedure Performed PFT Procedure Performed Spirometry with Pre/Post Bronchodilator Plethysmography (Lung Vol) Diffusing Cap (DLCO) Flow Vol Loop PFT Interpretation This is a pulmonary function test with pre and post-bronchodilator spirometry, plethysmography and diffusing capacity. The test was performed and results interpreted in accordance with the 2019 and 2005 ATS/ERS Task Force guidelines respectively using the Global Lung Function Initiative-2012 reference equations. Patient demonstrated good effort and cooperation. Reproducibility criteria were met. The quality of the pre bronchodilator spirometry maneuver was Grade A and post bronchodilator spirometry maneuver was Grade A. Findings: Spirometry: The contour of the pre bronchodilator expiratory flow tracing is normal. The expiratory flow tracing demonstrates a mild mid expiratory plateau in airflow creating a mild convex inflection referred to as the knee pattern the contour the inspiratory flow tracing is normal. This was reproducible on all 3 post bronchodilator efforts. the pre bronchodilator FVC is 3.30 L, 113% predicted. The pre bronchodilator FEV1 is 2.48 L, 107% predicted. The pre bronchodilator FEV1: FVC ratio 75%. The post bronchodilator FVC is 3.29 L, representing no change. The post bronchodilator FEV1 is 2.54 L, representing a 2% increase. The post bronchodilator FEV1: FVC ratio 77%. Plethysmography: The total lung capacity is 4.34 L, 92% predicted. The functional residual capacity is 2.06 L, 78% predicted. The residual volume is 1.02 L, 55% predicted. Diffusing capacity: The diffusing capacity unadjusted for hemoglobin and carboxyhemoglobin is 21.2, 102% predicted. The diffusing capacity adjusted for alveolar volume is 5.00, 110% predicted. Impression: The Pre bronchodilator expiratory flow tracing is normal and the post bronchodilator expiratory flow tracing demonstrates a reproducible mid expiratory plateau in airflow creating a convex inflection referred to as the knee pattern in 3 of 3 efforts. This pattern can be a normal variant or pathologic and has been attributed to a choke point section of the bronchial tree. The normal variant is more common in younger female patients, decreases with age and is more pronounced in the post bronchodilator efforts. The pattern has also been described with kyphosis, kyphoscoliosis, central obstructing masses, and post lung transplantation. Clinical correlation is recommended. Otherwise, the spirometry is normal without evidence of an obstructive abnormality. There is no significant improvement after inhaling a single dose of albuterol. the total lung capacity and functional residual capacity are normal with a decreased residual volume. This is an abnormal but nonspecific lung volume pattern. The diffusing capacity is normal. There are no prior studies for comparison
== END 2022-09-18 08:52 | disposition home or self-care (01) ==
LOC: ANHPFT 08:52
PROVIDERS: PCP Internal Medicine; Visit Provider Clinical Nurse Specialist
DX: J40 Bronchitis, not specified as acute or chronic (principal); J45.41 Moderate persistent asthma with (acute) exacerbation
CPT/HCPCS: 94060; 94726; 94729

== ENCOUNTER 2023-05-07 08:03 | Outpatient (CLI) | payer MEDICARE, SELFPAY ==
--- NOTE | ~2023-05-07 | MM_ITS ---
EXAMINATION: MM screening vladimir BI w heydi HISTORY: Screening TECHNIQUE: Craniocaudal and mediolateral oblique 3-D tomosynthesis images were obtained and synthetic 2-D images were generated. CAD analysis was submitted and interpreted. COMPARISON: No prior mammogram is available for comparison at this institution. BREAST PARENCHYMAL COMPOSITION: There are scattered areas of fibroglandular density. FINDINGS: There is no evidence of suspicious mass, calcification, or architectural distortion to sugg est malignancy in either breast. There has been no suspicious interval change. IMPRESSION: 1. No mammographic evidence of malignancy. 2. Recommend routine screening mammography in one year. BI-RADS Category 1: Negative Reviewed, dictated and finalized at location A. ET REPAIRER
== END 2023-05-07 08:04 | disposition home or self-care (01) ==
LOC: ANHIMG 08:05
PROVIDERS: PCP Internal Medicine; Visit Provider Nurse Practitioner
DX: Z12.31 Encounter for screening mammogram for malignant neoplasm of breast (principal)
CPT/HCPCS: 77063; 77067

== ENCOUNTER → 2023-05-13 15:03 | Outpatient (CLI) | payer MEDICARE, SELFPAY ==
--- NOTE | ~2023-05-13 | XR_ITS ---
EXAMINATION: [id number]_CR DATE: 05/13/2023 15:34 INDICATION: Right foot pain. Fall. TECHNIQUE: 3 views of right foot standing were obtained. COMPARISON: None. FINDINGS: Bone alignment is normal. No fracture. There is mild osteoarthritis of some of the interpha langeal joints and midfoot joints. There are enthesophytes at the posterior and plantar aspects of ca lcaneal tuberosity. IMPRESSION: 1. Mild polyarticular osteoarthritis. Reviewed, dictated and finalized at location E. SORTER AND DELIVERY
--- NOTE | ~2023-05-13 | XR_ITS ---
EXAMINATION: XR ankle RT min 3V DATE: 05/13/2023 15:35 INDICATION: Right ankle pain. Fall. TECHNIQUE: 4 views of right ankle were obtained. COMPARISON: None. FINDINGS: Bone alignment is normal. No fracture. There is chronic heterotopic ossification distal to medial malleolus. There is mild midfoot osteoarthritis. There are enthesophytes at the posterior and plantar aspects of calcaneal tuberosity. IMPRESSION: 1. Mild midfoot osteoarthritis. Reviewed, dictated and finalized at location E. DING SERVICEMAN
== END ==
PROVIDERS: PCP Internal Medicine; Visit Provider Clinical Nurse Specialist
DX: M19.071 Primary osteoarthritis, right ankle and foot (principal)
CPT/HCPCS: 73610; 73630

== ENCOUNTER 2023-11-03 11:09 | Emergency (ER) | payer MEDICARE, SELFPAY ==
[2023-11-03 11:15] VITALS: BP 161/80; PULSE 97; RESP 20; TEMP 36.6; O2SAT 98
--- NOTE | 2023-11-03 12:56 | ED.URI ---
HPI - URI/Sore Throat General Chief Complaint: Upper Respiratory Infection Stated Complaint: Congestion/Breathing Problems Time Seen by Provider: 11/03/23 12:50 Source: patient and RN notes reviewed Mode of arrival: ambulatory Limitations: no limitations History of Present Illness HPI Narrative: Patient presents today with a 2 week history of nonproductive cough, fatigue, congestion, rhinorrhea. Denies fever. History of asthma. She has tried DayQuil, NyQuil, Nury, albuterol nebs. She was just in [place] on vacation and grandson was sick with croup. Related Data Home Medications Medication Instructions Recorded Confirmed apple cider vinegar 500 mg tablet 1,000 - 1,500 mg PO DAILY 10/26/19 05/21/23 biotin 5,000 mcg sublingual tablet 5,000 mcg sublingual DAILY 10/26/19 05/21/23 coconut oil 1,000 mg capsule 1,000 mg PO DAILY 10/26/19 05/21/23 coenzyme Q10 100 mg capsule (Co 100 mg PO DAILY 10/26/19 05/21/23 Q-10) flaxseed oil-omega 3,6,9-fatty 1 cap PO DAILY 10/26/19 05/21/23 acids 1,200 mg-540 mg-132 mg capsule magnesium 250 mg tablet 250 mg PO DAILY 10/26/19 05/21/23 [id number]-[id number] 18 mg-FA 400 1 tablet PO DAILY 10/26/19 05/21/23 mcg-calcium 500 mg-vit K 50 mcg tablet (Women's Multivitamin) selenium 200 mcg capsule 200 mcg PO DAILY 10/26/19 05/21/23 vit A-vit C-zinc-herb comp 15 1 lozenge PO DAILY 10/26/19 05/21/23 lozenges vitamin E (dl, acetate) 180 mg 400 unit PO DAILY 10/26/19 05/21/23 (400 unit) capsule cholecalciferol (vitamin D3) 25 5,000 unit PO DAILY 02/28/21 05/21/23 mcg (1,000 unit) capsule black seed oil See Rx Instructions BYMOUTH 12/20/21 05/21/23 .COMPLEX vibegron 75 mg tablet (Gemtesa) 75 mg PO DAILY 09/03/22 05/21/23 Allergies Allergy/AdvReac Type Severity Reaction Status Date / Time gramicidin D Allergy Mild Itching Verified 11/03/23 12:26 neomycin Allergy Mild Itching Verified 11/03/23 12:26 bacitracin Allergy Unknown Itching Verified 11/03/23 12:26 indomethacin Allergy Unknown Hives Verified 11/03/23 12:26 Iodinated Contrast Media Allergy Unknown Anaphylactic Verified 11/03/23 12:26 Shock iodine Allergy Unknown Anaphylactic Verified 11/03/23 12:26 Shock Penicillins Allergy Unknown Anaphylactic Verified 11/03/23 12:26 Shock polymyxin B Allergy Unknown Unknown Verified 11/03/23 12:26 shellfish derived Allergy Unknown Anaphylactic Verified 11/03/23 12:26 Shock Sulfa (Sulfonamide Allergy Unknown Anaphylactic Verified 11/03/23 12:26 Antibiotics) Shock Contrast Media Allergy Intermediate Anaphylactic Uncoded 11/03/23 12:26 Shock IVP DYE Allergy Mild HIVES Uncoded 11/03/23 12:26 SHELL FISH Allergy Mild HIVES Uncoded 11/03/23 12:26 TRAMADOL HCL Allergy Unknown Hives Uncoded 11/03/23 12:26 Review of Systems Review of Systems: CONSTITUTIONAL: Denies body aches, fever, chills, or sweats.+ fatigue EYES: Denies visual changes, redness, or discharge. ENT:+ rhinorrhea, congestion, sore throat due to cough CARDIOVASCULAR: Denies chest pain, palpitations, or edema. RESPIRATORY: Denies dyspnea.+ cough, wheezing GASTROINTESTINAL: Denies abdominal pain, nausea, vomiting, or diarrhea. GENITOURINARY: Denies dysuria or hematuria. SKIN: Denies rash, itching, or wounds. MUSCULOSKELETAL: Denies back pain, joint pain, or myalgia. NEUROLOGIC: Denies headache, numbness, tingling, or weakness. PSYCH: Denies depression or anxiety. [facility] Past Medical History Medical History Asthma with exacerbation Bronchitis Cough COVID-19 Dyspnea on exertion Elevated BP without diagnosis of hypertension Elevated glucose level Elevated liver enzymes Fatigue Frequent UTI Generalized headaches Hospital discharge follow-up Hx of ovarian cancer Hyperglycemia Loss of smell Lower extremity pain Obesity URBANO (obstructive sleep apnea) Pneumonia Postmenopausal Screening for breast cancer Screening for colon cancer
== END 2023-11-03 13:05 | disposition home or self-care (01) ==
PROVIDERS: Emergency Provider Nurse Practitioner; PCP Internal Medicine
DX: J01.90 Acute sinusitis, unspecified (principal); J45.901 Unspecified asthma with (acute) exacerbation; E66.9 Obesity, unspecified; Z68.45 Body mass index [BMI] 70 or greater, adult; E55.9 Vitamin D deficiency, unspecified; Z86.16 Personal history of COVID-19; Z85.43 Personal history of malignant neoplasm of ovary
CPT/HCPCS: 99213; G0463

== ENCOUNTER 2023-11-05 04:58 | Emergency (ER) | payer MEDICARE, SELFPAY ==
[2023-11-05] VITALS (12 sets, daily range): BP systolic 104–152; BP diastolic 60–86; PULSE 71–108; RESP 11–20; TEMP 36.5–36.7; O2SAT 95–100
--- NOTE | ~2023-11-05 | NM_ITS ---
EXAMINATION: NM lung vent and perfusion DATE: 11/05/2023 10:55 INDICATION: Dyspnea. Positive d-dimer. TECHNIQUE: 20.1 mCi xenon-133 by inhalation and 5.4 mCi Tc-99m MAA by intravenous route. Scintigraph ic images of the chest were obtained. COMPARISON: 11/05/2023 FINDINGS: There is homogeneous radiotracer activity throughout the lungs on the single breath ventilation seque nce. Activity in the left lung on the ventilation and posterior perfusion images appear slightly less than on the right and the posterior contour of the left lung on the lateral and LPO projections. Sli ghtly flattened suggesting possibility small dependently layering left pleural effusion. Otherwise re latively homogeneous perfusion throughout the lungs. No discrete ventilation and perfusion mismatch is identified. IMPRESSION: 1. Low probability for pulmonary embolism. 2. Possible small posterior layering left pleural effusion. Reviewed, dictated and finalized at location A.
--- NOTE | ~2023-11-05 | XR_ITS ---
Portable chest x-ray Comparison: 09/03/2022 Clinical History: Cough Findings: Lungs are clear, without focal consolidation or pleural effusion. Cardiomediastinal silho uette is stable. Bones and soft tissues are unremarkable. Impression: Normal chest. Reviewed, dictated and finalized at location . Impression: Normal chest.
--- NOTE | ~2023-11-05 | US_ITS ---
Duplex Sonography of the left extremity: Indication: Swelling Findings: Sagittal and transverse B-mode images as well as color-flow imaging were performed on the l eft femoral and popliteal veins. B-mode examination was done without and with compression in the tra nsverse plane. There is good visualization of the common femoral, proximal profunda femoral, superfi cial femoral, greater saphenous, and popliteal veins. Normal flow was seen on color-flow imaging. No rmal compressibility was demonstrated. Visualized calf veins are also patent. Impression: No evidence of deep vein thrombosis involving the left lower extremity. Reviewed, dictated and finalized at location M. Impression: No evidence of deep vein thrombosis involving the left lower extremity.
--- NOTE | 2023-11-05 04:58 | ECG_ITS ---
Test Date: 2023-11-05 05:07:22 Measurements Intervals Felt Rate: 74 P: 6 WY: 194 QRS: 41 QRSD: 98 T: 25 QT: 333 QTc: 371 Interpretive Statements SINUS RHYTHM No previous ECG available for comparison Electronically Signed On 11-05-2023 11:37:57 CDT by Lata Coe M.D.
--- NOTE | 2023-11-05 05:12 | ED.SOB ---
HPI - SOB/Dyspnea General Chief Complaint: Shortness of Breath/Dyspnea <Vahe Petty MD - Last Filed: 11/05/23 06:57> Stated Complaint: sob <Vahe Petty MD - Last Filed: 11/05/23 06:57> Time Seen by Provider: 11/05/23 05:00 <Vahe Petty MD - Last Filed: 11/05/23 06:57> Source: patient <Vahe Petty MD - Last Filed: 11/05/23 06:57> Mode of arrival: wheelchair <Vahe Petty MD - Last Filed: 11/05/23 06:57> Limitations: no limitations <Vahe Petty MD - Last Filed: 11/05/23 06:57> History of Present Illness HPI Narrative: This is a 62-year-old female, with history of asthma, presents to the emergency department complaining of shortness of breath for the past week, worse in the past day. The patient states 1 week ago, she traveled to [place] with family. There she believes she contracted a viral illness and had some shortness of breath (a family member had similar symptoms). The patient was seen at an urgent care and started on doxycycline and prednisone without significant improvement. Today, her symptoms are worse. She complains of chest tightness and sharp low back pain with cough. She denies other chest pain. She has no other complaints at this time. She states she has chronic left leg swelling compared to the right. <Vahe Petty MD - Last Filed: 11/05/23 06:57> Related Data Home Medications: Home Medications Medication Instructions Recorded Confirmed apple cider vinegar 500 mg tablet 1,000 - 1,500 mg PO DAILY 10/26/19 05/21/23 biotin 5,000 mcg sublingual tablet 5,000 mcg sublingual DAILY 10/26/19 05/21/23 coconut oil 1,000 mg capsule 1,000 mg PO DAILY 10/26/19 05/21/23 coenzyme Q10 100 mg capsule (Co 100 mg PO DAILY 10/26/19 05/21/23 Q-10) flaxseed oil-omega 3,6,9-fatty 1 cap PO DAILY 10/26/19 05/21/23 acids 1,200 mg-540 mg-132 mg capsule magnesium 250 mg tablet 250 mg PO DAILY 10/26/19 05/21/23 rpagpdlv-[id number] 18 mg-FA 400 1 tablet PO DAILY 10/26/19 05/21/23 mcg-calcium 500 mg-vit K 50 mcg tablet (Women's Multivitamin) selenium 200 mcg capsule 200 mcg PO DAILY 10/26/19 05/21/23 vit A-vit C-zinc-herb comp 15 1 lozenge PO DAILY 10/26/19 05/21/23 lozenges vitamin E (dl, acetate) 180 mg 400 unit PO DAILY 10/26/19 05/21/23 (400 unit) capsule cholecalciferol (vitamin D3) 25 5,000 unit PO DAILY 02/28/21 05/21/23 mcg (1,000 unit) capsule black seed oil See Rx Instructions BYMOUTH 12/20/21 05/21/23 .COMPLEX vibegron 75 mg tablet (Gemtesa) 75 mg PO DAILY 09/03/22 05/21/23 <Vahe Petty MD - Last Filed: 11/05/23 06:57> Allergies/Adverse Reactions: Allergies Allergy/AdvReac Type Severity Reaction Status Date / Time gramicidin D Allergy Mild Itching Verified 11/05/23 05:11 neomycin Allergy Mild Itching Verified 11/05/23 05:11 bacitracin Allergy Unknown Itching Verified 11/05/23 05:11 indomethacin Allergy Unknown Hives Verified 11/05/23 05:11 Iodinated Contrast Media Allergy Unknown Anaphylactic Verified 11/05/23 05:11 Shock iodine Allergy Unknown Anaphylactic Verified 11/05/23 05:11 Shock Penicillins Allergy Unknown Anaphylactic Verified 11/05/23 05:11 Shock polymyxin B Allergy Unknown Unknown Verified 11/05/23 05:11 shellfish derived Allergy Unknown Anaphylactic Verified 11/05/23 05:11 Shock Sulfa (Sulfonamide Allergy Unknown Anaphylactic Verified 11/05/23 05:11 Antibiotics) Shock Contrast Media Allergy Intermediate Anaphylactic Uncoded 11/03/23 12:26 Shock IVP DYE Allergy Mild HIVES Uncoded 11/03/23 12:26 SHELL FISH Allergy Mild HIVES Uncoded 11/03/23 12:26 TRAMADOL HCL Allergy Unknown Hives Uncoded 11/03/23 12:26 <Vahe Petty MD - Last Filed: 11/05/23 06:57> Review of Systems Review of Systems: All systems reviewed & are unremarkable except as noted in HPI and below <Vahe Petty MD - Last Filed: 11/05/23 06:57> [facility] Past Medical History Medical History: Medical History Asthma with exacerbation Bronchitis Cough COVID-19 Dyspnea on exertion Elevated BP without diagnosis of hypertension Elevated glucose level Elevated liver enzymes Fatigue Frequent UTI Generalized headaches Hospital discharge follow-up Hx of ovarian cancer Hyperglycemia Loss of smell Lower extremity pain Obesity URBANO (obstructive sleep apnea) Pneumonia Postmenopausal Screening for breast cancer Screening for colon cancer Screening for lipoid disorders Screening for metabolic disorder Seasonal allergies Urinary incontinence Vitamin D deficiency <Vahe Petty MD - Last Filed: 11/05/23 06:57> Family History Family History: Family History Sibling Family history of multiple sclerosis Mother Family history of lung disease Family history of tremor Family history of multiple sclerosis Father Patient's father is in good health Other Family history of cardiovascular disease Family history of heart disease in male family member before age 55 <Vahe Petty MD - Last Filed: 11/05/23 06:57> Social History Social History: Social History Social History: Caffeine- tea Smoking status: Never smoker Alcohol intake: never Substance use: never Substance use type: does not use Lack of Transportation: No Lack of Food: Never True Current Housing: I Have Housing Concerned About Future Housing: No Difficulty Paying Gas/Electric Bills: No Difficulty Paying for Meds: YES Currently Unemployed: No Education: High School Diploma/GED Difficulty w/ Childcare or Family Care: No <Vahe Petty MD - Last Filed: 11/05/23 06:57> Exam Narrative: GENERAL: Well-developed, well-nourished, in [id number] respiratory distress HEAD: Normocephalic, atraumatic. EYES: PERRLA and EOMI. CHEST: Tachypneic, using accessory muscles of respiration, in [id number] respiratory distress. Expiratory wheezes noted in the bilateral posterior lung lechuga. No rales or rhonchi HEART: Regular rate and rhythm. No murmur heard. Normal peripheral pulses. ABDOMEN: Soft, nontender, nondistended, normal active bowel sounds. EXTREMITIES: Normal range of motion. No edema. SKIN: Warm, dry, no rash. NEURO: Alert and oriented x3. No focal deficit. Moving all 4 limbs spontaneously PSYCH: Normal mood and affect. <Vahe Petty MD - Last Filed: 11/05/23 06:57> Course Course Emergency Course: 06:17 - Chest x-ray not concerning for acute cardiopulmonary process. CBC demonstrates mildly elevated white blood cell count of 10.3 but is otherwise unremarkable. Chemistries unremarkable. The patient tested negative for influenza, COVID and RSV. On re-evaluation during DuoNebs, the patient states she is feeling improved. The patient wheezes are improved. Will give an additional hour long albuterol treatment with plan for discharge. 06:23 - Age adjusted D-dimer positive. The patient was tachycardic on initial presentation. The patient has a reported anaphylactic reaction to contrast dye. Will obtain a nuclear medicine study. 07:00 - Patient signed out on coming ED physician, Dr. Triplett pending imaging results and reassessment. <Vahe Petty MD - Last Filed: 11/05/23 06:57> 06:17 - Chest x-ray not concerning for acute cardiopulmonary process. CBC demonstrates mildly elevated white blood cell count of 10.3 but is otherwise unremarkable. Chemistries unremarkable. The patient tested negative for influenza, COVID and RSV. On re-evaluation during DuoNebs, the patient states she is feeling improved. The patient wheezes are improved. Will give an additional hour long albuterol treatment with plan for discharge. 06:23 - Age adjusted D-dimer positive. The patient was tachycardic on initial presentation. The patient has a reported anaphylactic reaction to contrast dye. Will obtain a nuclear medicine study. 07:00 - Patient signed out on coming ED physician, Dr. Triplett pending imaging results and reassessment. 1134: No PE or DVT. Discharged with prednisone. <Doc Triplett MD - Last Filed: 11/05/23 11:37> Vital Signs Vital signs: Vital Signs Temperature 97.7 F 11/05/23 05:02 Pulse Rate 81 11/05/23 05:02 Respiratory Rate 20 11/05/23 05:02 Blood Pressure 147/86 H 11/05/23 05:02 Pulse Oximetry 98 11/05/23 05:02 Oxygen Delivery Room Air 11/05/23 05:02 Temperature 97.9 F 11/05/23 11:00 Pulse Rate 71 11/05/23 11:00 Respiratory Rate 20 11/05/23 11:00 Blood Pressure 152/71 H 11/05/23 11:00 Pulse Oximetry 100 11/05/23 11:00 Oxygen Delivery Room Air 11/05/23 05:09 <Vahe Petty MD - Last Filed: 11/05/23 06:57> Vital Signs Temperature 97.7 F 11/05/23 05:02 Pulse Rate 81 11/05/23 05:02 Respiratory Rate 20 11/05/23 05:02 Blood Pressure 147/86 H 11/05/23 05:02 Pulse Oximetry 98 11/05/23 05:02 Oxygen Delivery Room Air 11/05/23 05:02 Temperature 97.9 F 11/05/23 11:00 Pulse Rate 71 11/05/23 11:00 Respiratory Rate 20 11/05/23 11:00 Blood Pressure 152/71 H 11/05/23 11:00 Pulse Oximetry 100 11/05/23 11:00 Oxygen Delivery Room Air 11/05/23 05:09 <Doc Triplett MD - Last Filed: 11/05/23 11:37> MDM - SOB/Dyspnea MDM Narrative Medical decision making narrative: Plan: Labs, imaging, nebs, reassess <Vahe Petty MD - Last Filed: 11/05/23 06:57> Differential Diagnosis Differential diagnosis: Likely acute exacerbation of chronic obstructive airways disease, community acquired pneumonia, pulmonary embolism and other (COVID, influenza, RSV, viral URI, other) <Vahe Petty MD - Last Filed: 11/05/23 06:57> Lab Data Result diagrams: 11/05/23 05:21 11/05/23 05:21 <Vahe Petty MD - Last Filed: 11/05/23 06:57> Labs: Lab Results 11/05/23 Range/Units 05:21 WBC 10.3 H (4.5-10.0) K/mm3 RBC 4.30 (4.2-5.4) M/mm3 Hgb 12.8 (12.0-15.0) g/dL Hct 40.5 (37.0-47.0) % MCV 94.2 (80-100) fl MCH 29.8 (26-34) pg MCHC 31.6 L (32-36) g/dl RDW 13.7 (11.5-14.5) % Plt Count 236 D (150-375) k/mm3 MPV 10.4 (7.4-10.4) fl Immature Gran % (Auto) 0.5 (0-0.5) % Neut % (Auto) 54.0 (45.5-73.1) % Lymph % (Auto) 37.2 (18.3-44.2) % [place] % (Auto) 7.8 (2.6-8.5) % Eos % (Auto) 0.3 (0-4.4) % Baso % (Auto) 0.2 (0.2-1.2) % Lymph # (Auto) 3.84 H (0.9-3.2) K/mm3 [place] # (Auto) 0.8 H (0.1-0.6) K/mm3 Eos # (Auto) 0.0 (0-0.3) K/mm3 Baso # (Auto) 0.0 (0.0-0.1) K/mm3 Abs Immat Gran (auto) 0.05 H (0.00-0.031) K/mm3 Absolute Neuts (auto) 5.6 (1.3-6.7) K/mm3 Absolute Nucleated RBC 0.000 (0.0-0.012) K/mm3 Nucleated RBC % 0.0 (0.0-0.2) % D-Dimer 0.68 H (<0.48) ug/mL Sodium 140 (137-145) mmol/L Potassium 3.8 (3.4-5.0) mmol/L Chloride 108 H (98-107) mmol/L Carbon Dioxide 26 (22-30) mmol/L Anion Gap 6 (4-12) mmol/L BUN 24 H D (7-17) mg/dL Creatinine 0.80 (0.7-1.0) mg/dL Estim Creat Clear Calc 105 ml/min Estimated GFR > 60 (59 - ) Glucose 109 (65-110) mg/dL Calcium 9.2 (8.4-10.2) mg/dL Magnesium 2.0 (1.6-2.3) mg/dL Total Bilirubin 0.4 (0.2-1.3) mg/dL AST 39 H (14-36) U/L ALT 45 H (6-35) U/L Alkaline Phosphatase 77 (38-126) U/L Total Protein 7.0 (6.3-8.2) g/dL Albumin 4.1 (3.5-5.1) g/dL Influenza A (RT-PCR) Negative (Negative) Influenza B (RT-PCR) Negative (Negative) RSV (RT-PCR) Negative (Negative) SARS-CoV-2 RNA (RT-PCR) Negative (Negative) <Vahe Petty MD - Last Filed: 11/05/23 06:57> Lab Results 11/05/23 Range/Units 05:21 WBC 10.3 H (4.5-10.0) K/mm3 RBC 4.30 (4.2-5.4) M/mm3 Hgb 12.8 (12.0-15.0) g/dL Hct 40.5 (37.0-47.0) % MCV 94.2 (80-100) fl MCH 29.8 (26-34) pg MCHC 31.6 L (32-36) g/dl RDW 13.7 (11.5-14.5) % Plt Count 236 D (150-375) k/mm3 MPV 10.4 (7.4-10.4) fl Immature Gran % (Auto) 0.5 (0-0.5) % Neut % (Auto) 54.0 (45.5-73.1) % Lymph % (Auto) 37.2 (18.3-44.2) % [place] % (Auto) 7.8 (2.6-8.5) % Eos % (Auto) 0.3 (0-4.4) % Baso % (Auto) 0.2 (0.2-1.2) % Lymph # (Auto) 3.84 H (0.9-3.2) K/mm3 [place] # (Auto) 0.8 H (0.1-0.6) K/mm3 Eos # (Auto) 0.0 (0-0.3) K/mm3 Baso # (Auto) 0.0 (0.0-0.1) K/mm3 Abs Immat Gran (auto) 0.05 H (0.00-0.031) K/mm3 Absolute Neuts (auto) 5.6 (1.3-6.7) K/mm3 Absolute Nucleated RBC 0.000 (0.0-0.012) K/mm3 Nucleated RBC % 0.0 (0.0-0.2) % D-Dimer 0.68 H (<0.48) ug/mL Sodium 140 (137-145) mmol/L Potassium 3.8 (3.4-5.0) mmol/L Chloride 108 H (98-107) mmol/L Carbon Dioxide 26 (22-30) mmol/L Anion Gap 6 (4-12) mmol/L BUN 24 H D (7-17) mg/dL Creatinine 0.80 (0.7-1.0) mg/dL Estim Creat Clear Calc 105 ml/min Estimated GFR > 60 (59 - ) Glucose 109 (65-110) mg/dL Calcium 9.2 (8.4-10.2) mg/dL Magnesium 2.0 (1.6-2.3) mg/dL Total Bilirubin 0.4 (0.2-1.3) mg/dL AST 39 H (14-36) U/L ALT 45 H (6-35) U/L Alkaline Phosphatase 77 (38-126) U/L Total Protein 7.0 (6.3-8.2) g/dL Albumin 4.1 (3.5-5.1) g/dL Influenza A (RT-PCR) Negative (Negative) Influenza B (RT-PCR) Negative (Negative) RSV (RT-PCR) Negative (Negative) SARS-CoV-2 RNA (RT-PCR) Negative (Negative) <Doc Triplett MD - Last Filed: 11/05/23 11:37> Imaging Data Radiologist's impression: ITS Impressions Chest X-Ray 11/05/23 05:56 Impression: Normal chest. Venous Doppler Study 11/05/23 07:38 Impression: No evidence of deep vein thrombosis involving the left lower extremity. Pulmonary Perfusion Imaging 11/05/23 10:56 IMPRESSION: 1. Low probability for pulmonary embolism. 2. Possible small posterior layering left pleural effusion. <Doc Triplett MD - Last Filed: 11/05/23 11:37> ECG Data EKG #1: Attestation: I personally reviewed and interpreted this ECG as follows: <Vahe Petty MD - Last Filed: 11/05/23 06:57> ECG completion date: 11/05/23 <Vahe Petty MD - Last Filed: 11/05/23 06:57> ECG completion time: 05:07 <Vahe Petty MD - Last Filed: 11/05/23 06:57> Prior ECG tracings: available for review <Vhae Petty MD - Last Filed: 11/05/23 06:57> Interpretation: Sinus rhythm, rate 74, normal axis, no ST segment elevations concerning for ischemia, T-wave inversion in lead 3, normal intervals with QTC of 361. Compared to EKG done in July 2021, there are no significant changes. <Vahe Petty MD - Last Filed: 11/05/23 06:57> Discharge Plan Discharge Clinical Impression: Acute dyspnea <Vahe Petty MD - Last Filed: 11/05/23 06:57> Patient Disposition: Home, Self-Care <Vahe Petty MD - Last Filed: 11/05/23 06:57> Condition: Stable <Vahe Petty MD - Last Filed: 11/05/23 06:57> Instructions: Antibiotic Form, Asthma (ED) <Vahe Petty MD - Last Filed: 11/05/23 06:57> Additional Instructions: Continue your home prednisone and albuterol. Return the ER if you have any increased difficulty breathing. <Vahe Petty MD - Last Filed: 11/05/23 06:57> Prescriptions: No Action prednisone 50 mg tablet 50 mg PO DAILY 5 Days Qty: 5 0RF doxycycline hyclate 100 mg tablet 100 mg PO BID 7 Days Qty: 14 0RF albuterol sulfate 2.5 mg /3 mL (0.083 %) solution for nebulization 2.5 mg inhalation Q4-6H PRN (Reason: shortness of breath or wheezing) Qty: 90 0RF cholecalciferol (vitamin D3) 25 mcg (1,000 unit) capsule 5,000 unit PO DAILY albuterol sulfate [ProAir HFA] 90 mcg/actuation HFA aerosol inhaler 1 - 2 puff INHALATION Q4-6H PRN (Reason: shortness of breath or wheezing) Qty: 17 1RF coconut oil 1,000 mg capsule 1,000 mg PO DAILY apple cider vinegar 500 mg tablet 1,000 - 1,500 mg PO DAILY vitamin E (dl, acetate) 400 unit capsule 400 unit PO DAILY selenium 200 mcg capsule 200 mcg PO DAILY coenzyme Q10 [Co Q-10] 100 mg capsule 100 mg PO DAILY flaxseed-omega3,6,9-fatty acid 1,200-540-132 mg capsule 1 cap PO DAILY vit A-vit C-zinc-herb comp 15 Lozenge 1 lozenge PO DAILY Women's Multivitamin 18 mg-400 mcg- 500 mg-50 mcg tablet 1 tablet PO DAILY magnesium 250 mg tablet 250 mg PO DAILY biotin 5,000 mcg tablet, sublingual 5,000 mcg SUBLINGUAL DAILY black seed oil See Rx Instructions BYMOUTH .COMPLEX Rx Instructions: 1 tablet once daily orally; Gemtesa 75 mg tablet 75 mg PO DAILY Rx Instructions: from urologist albuterol sulfate 2.5 mg /3 mL (0.083 %) solution for nebulization 2.5 mg inhalation Q4-6H PRN (Reason: shortness of breath or wheezing) Qty: 90 1RF Rx Instructions: Not to be used with the inhaler. epinephrine 0.3 mg/0.3 mL auto-injector 0.3 mg IM ONCE Qty: 2 0RF Rx Instructions: as a single dose; may repeat once Wegovy 0.25 mg/0.5 mL pen injector 0.25 mg subcut WEEKLY Qty: 2 0RF Rx Instructions: administer weeks 1 through 4 of therapy lisinopril 40 mg tablet 40 mg PO DAILY Qty: 100 0RF Rx Instructions: NEEDS APPOINTMENT FOR FURTHER REFILLS <Vahe Petty MD - Last Filed: 11/05/23 06:57> Follow-up/Referrals: Daniel Shrestha, DO [Primary Care Provider] - 1 Week <Vahe Petty MD - Last Filed: 11/05/23 06:57>
[2023-11-05] MEDS: ALBUTEROL SULFATE NEB 2.5 MG/3 ML INH 10 MG INHALATION (05:21)
[2023-11-05] MEDS: IPRATROPIUM 0.5 MG/ALBUTEROL SULFATE 2.5 MG AMPUL.NEB 3 ML 6 ML INHALATION (05:21)
[2023-11-05] MEDS: MAGNESIUM SULF 2 GM/WATER 50ML 2 GM/50 ML BAG IVPB (05:27)
[2023-11-05 05:30] LABS: Basophils Percent Auto 0.2 % (0.2-1.2); Eosinophils Percent Auto 0.3 % (0-4.4); Hematocrit 40.5 % (37.0-47.0); Hemoglobin 12.8 g/dL (12.0-15.0); Immature Granulocyte Absolute 0.05 K/mm3 (0.00-0.031); Immature Granulocyte Percent A 0.5 % (0-0.5); Lymphocytes Absolute Auto 3.84 K/mm3 (0.9-3.2); Lymphocytes Percent Auto 37.2 % (18.3-44.2); Mean Corpuscular HGB Conc 31.6 g/dl (32-36); Mean Corpuscular Hemoglobin 29.8 pg (26-34); Mean Corpuscular Volume 94.2 fl (80-100); Mean Platelet Volume 10.4 fl (7.4-10.4); Monocytes Absolute Auto 0.8 K/mm3 (0.1-0.6); Monocytes Percent Auto 7.8 % (2.6-8.5); Neutrophils Absolute Auto 5.6 K/mm3 (1.3-6.7); Platelet Count Result 236 k/mm3 (150-375); Red Cell Distribution Width 13.7 % (11.5-14.5); White Blood Count 10.3 K/mm3 (4.5-10.0)
[2023-11-05 05:43] LABS: Alanine Aminotransferase 45 U/L (6-35); Albumin Level 4.1 g/dL (3.5-5.1); Alkaline Phosphatase 77 U/L (38-126); Anion Gap 6 mmol/L (4-12); Aspartate Amino Transferase 39 U/L (14-36); Bilirubin,Total 0.4 mg/dL (0.2-1.3); Blood Urea Nitrogen 24 mg/dL (7-17); Calcium 9.2 mg/dL (8.4-10.2); Carbon Dioxide 26 mmol/L (22-30); Chloride 108 mmol/L (98-107); Estimated CRCL calculation 105 ml/min; Estimated Glomerular Filt Rate > 60; Glucose 109 mg/dL (65-110); Potassium 3.8 mmol/L (3.4-5.0); Sodium 140 mmol/L (137-145)
[2023-11-05 06:05] LABS: Influenza A QL RT-PCR Negative (Negative); Influenza B QL RT-PCR Negative (Negative); RSV RNA, RT-PCR Negative (Negative); SARS-CoV-2 RNA PCR Negative (Negative)
[2023-11-05 06:19] LABS: D Dimer 0.68 ug/mL (<0.48)
== END 2023-11-05 11:44 | disposition home or self-care (01) ==
PROVIDERS: Emergency Provider Preventive Medicine Aerospace Medicine; PCP Internal Medicine
DX: R06.00 Dyspnea, unspecified (principal); J45.909 Unspecified asthma, uncomplicated; E66.9 Obesity, unspecified; Z68.45 Body mass index [BMI] 70 or greater, adult; E55.9 Vitamin D deficiency, unspecified; R32 Unspecified urinary incontinence; Z87.01 Personal history of pneumonia (recurrent); Z86.16 Personal history of COVID-19; Z87.440 Personal history of urinary (tract) infections; Z79.85 Long-term (current) use of injectable non-insulin antidiabetic drugs; Z79.899 Other long term (current) drug therapy; Z20.822 Contact with and (suspected) exposure to COVID-19
CPT/HCPCS: 36415; 71045; 78582; 80053; 83735; 85025; 85380; 87637; 93005; 93971; 94640; 96365; 99284; A9540; A9558; J3475

== ENCOUNTER 2023-12-19 14:13 | Emergency (ER) | payer MEDICARE, SELFPAY ==
[2023-12-19 14:27] VITALS: BP 141/79; PULSE 78; RESP 16; TEMP 36.9; O2SAT 98
--- NOTE | 2023-12-19 14:41 | ED.SKABFB ---
HPI - Skin/Abscess/Foreign Bdy General Chief complaint: Skin/Abscess/Foreign Body Stated complaint: Bite Right Thigh Source: patient, RN notes reviewed and old records reviewed Mode of arrival: ambulatory Limitations: no limitations History of Present Illness HPI narrative: Patient presents with complaints of what she believes to be an insect bite to the right inner thigh. She states that she believes she was bitten either by an insect or spider yesterday. She reports that she felt a pinch . Today she awakened with pain at the site, noticed some redness and swelling surrounding the area. She does report there are multiple spiders that she has seen in her house, she is unsure which type bit her. She denies any fever, chills, sweats. She voices no other concerns or complaints at this time Related Data Home Medications Medication Instructions Recorded Confirmed apple cider vinegar 500 mg tablet 1,000 - 1,500 mg PO DAILY 10/26/19 05/21/23 biotin 5,000 mcg sublingual tablet 5,000 mcg sublingual DAILY 10/26/19 05/21/23 coconut oil 1,000 mg capsule 1,000 mg PO DAILY 10/26/19 05/21/23 coenzyme Q10 100 mg capsule (Co 100 mg PO DAILY 10/26/19 05/21/23 Q-10) flaxseed oil-omega 3,6,9-fatty 1 cap PO DAILY 10/26/19 05/21/23 acids 1,200 mg-540 mg-132 mg capsule magnesium 250 mg tablet 250 mg PO DAILY 10/26/19 05/21/23 pyxajswp-qll-yhaa 18 mg-FA 400 1 tablet PO DAILY 10/26/19 05/21/23 mcg-calcium 500 mg-vit K 50 mcg tablet (Women's Multivitamin) selenium 200 mcg capsule 200 mcg PO DAILY 10/26/19 05/21/23 vit A-vit C-zinc-herb comp 15 1 lozenge PO DAILY 10/26/19 05/21/23 lozenges vitamin E (dl, acetate) 180 mg 400 unit PO DAILY 10/26/19 05/21/23 (400 unit) capsule cholecalciferol (vitamin D3) 25 5,000 unit PO DAILY 02/28/21 05/21/23 mcg (1,000 unit) capsule black seed oil See Rx Instructions BYMOUTH 12/20/21 05/21/23 .COMPLEX vit B complex 100 combo no.2 100 1 tablet PO DAILY 12/19/23 12/19/23 mg tablet,extended release Allergies Allergy/AdvReac Type Severity Reaction Status Date / Time gramicidin D Allergy Mild Itching Verified 11/11/23 11:49 neomycin Allergy Mild Itching Verified 11/11/23 11:49 bacitracin Allergy Unknown Itching Verified 11/11/23 11:49 indomethacin Allergy Unknown Hives Verified 11/11/23 11:49 Iodinated Contrast Media Allergy Unknown Anaphylactic Verified 11/11/23 11:49 Shock iodine Allergy Unknown Anaphylactic Verified 11/11/23 11:49 Shock Penicillins Allergy Unknown Anaphylactic Verified 11/11/23 11:49 Shock polymyxin B Allergy Unknown Unknown Verified 11/11/23 11:49 shellfish derived Allergy Unknown Anaphylactic Verified 11/11/23 11:49 Shock Sulfa (Sulfonamide Allergy Unknown Anaphylactic Verified 11/11/23 11:49 Antibiotics) Shock Contrast Media Allergy Intermediate Anaphylactic Uncoded 11/03/23 12:26 Shock IVP DYE Allergy Mild HIVES Uncoded 11/03/23 12:26 SHELL FISH Allergy Mild HIVES Uncoded 11/03/23 12:26 TRAMADOL HCL Allergy Unknown Hives Uncoded 11/03/23 12:26 Review of Systems Review of Systems: All systems reviewed & are unremarkable except as noted in HPI and below Constitutional: Constitutional: Reports no additional constitutional complaints ENT: Reports system reviewed and no additional complaints, except as documented Cardiovascular: Cardiovascular: Reports no additional cardiovascular complaints Respiratory: Respiratory: Reports no additional respiratory complaints Gastrointestinal: Gastrointestinal: Reports no additional gastrointestinal complaints Integumentary/Breasts: Skin/Breast: Reports as per HPI PMFSH Past Medical History Medical History Asthma with exacerbation Bronchitis Cough COVID-19 Dyspnea on exertion Elevated BP without diagnosis of hypertension Elevated glucose level Elevated liver enzymes Fatigue Frequent UTI Generalized headaches Hospital discharge follow-up
== END 2023-12-19 14:51 | disposition home or self-care (01) ==
PROVIDERS: Emergency Provider Nurse Practitioner Family; PCP Internal Medicine
DX: S70.361A Insect bite (nonvenomous), right thigh, initial encounter (principal); L08.9 Local infection of the skin and subcutaneous tissue, unspecified; W57.XXXA Bitten or stung by nonvenomous insect and other nonvenomous arthropods, initial encounter; E55.9 Vitamin D deficiency, unspecified; Z86.16 Personal history of COVID-19; E66.9 Obesity, unspecified; Z68.45 Body mass index [BMI] 70 or greater, adult; Z85.43 Personal history of malignant neoplasm of ovary
CPT/HCPCS: 99213; G0463

== ENCOUNTER 2024-01-09 10:42 | Outpatient (CLI) | payer MEDICARE, SELFPAY ==
--- NOTE | ~2024-01-09 | XR_ITS ---
3 VIEWS LUMBAR SPINE Ordering provider: Nafisa Mccartney, [place] History: . acute lumbar pain . Comparison: April 08, 2006 FINDINGS: VERTEBRAL BODIES:Spondylolisthesis at the level of L4-L5. No visible fracture or subluxation. Degene rative changes of the spine. DISK SPACES: Narrowing of the disc L3-L4, L4-L5 and L5-S1. Bilateral hip osteoarthritic changes. SOFT TISSUES: Normal. IMPRESSION: No acute osseous abnormality lumbar spine. Spondylolisthesis at the level of L4-L5. Multilevel degenerative disc disease. Reviewed, dictated and finalized at location A.
== END 2024-01-09 10:43 ==
PROVIDERS: PCP Internal Medicine; Visit Provider Chiropractor
DX: M43.16 Spondylolisthesis, lumbar region (principal); M51.36 Other intervertebral disc degeneration, lumbar region; M51.37 Other intervertebral disc degeneration, lumbosacral region
CPT/HCPCS: 72100

== ENCOUNTER 2024-02-04 09:57 | Outpatient (CLI) | payer MEDICARE, SELFPAY ==
--- NOTE | ~2024-02-04 | DEXA_ITS ---
Bone Density Report Name: YARELI MARSHALL Age: 63 Sex: Female Ethnicity: White Date of : 1960 Indication: postmenopausal; screening for osteoporosis; height loss; inflammatory bowel disease; cancer; asthma or emphysema; rheumatoid arthritis; Referring Provider: LUIGI YOUNGBLOOD Study: Bone densitometry was performed. Exam Date: February 04, 2024 Accession number: [id number] Bone Density: Region BMD T-score Z-score Classification AP Spine(L1-L4) 1.182 1.2 2.8 Normal Femoral Neck (Left) 0.910 0.5 1.9 Normal Total Hip (Left) 1.037 0.8 1.8 Normal Femoral Neck (Right) 0.825 -0.2 1.2 Normal Total Hip (Right) 0.977 0.3 1.3 Normal Total Hip Mean 1.007 0.6 1.6 Normal World Health Organization criteria for BMD impression classify patients as: Normal (T-score at or above -1.0), Osteopenia (T-score between -1.0 and -2.5), or Osteoporosis (T-score at or below -2.5). 10-year Fracture Risk: FRAX not reported because: All T-scores for Spine Total, Hip Total, Femoral Neck at or above -1.0 Previous Exams: Region Exam Age BMD T-score BMD Change BMD Change Date g/cm2 vs Baseline vs Previous Total Hip(Left) 02/04/2024 63 1.037 0.8 -0.017 (-1.6%) -0.017 (-1.6%) 03/29/2021 60 1.054 0.9 Total Hip(Right) 02/04/2024 63 0.977 0.3 0.104 (11.9%)* 0.104 (11.9%)* 03/29/2021 60 0.873 -0.6 *Denotes significance at 95% confidence level, LSC for Total Hip = 0.027 g/cm2 Clinical Information Provided by Patient: Has rheumatoid arthritis Has used the following medications: Vitamin D, Calcium Has the following medical conditions: Asthma or Emphysema, Cancer, Inflammatory bowel diseases Patient maximum height was 65.0 Menopause Age: 49 Onset of menses at age 10 Number of children 1 Impression: The patient has normal bone mass. No significant bone loss was observed. Discussion: BONE DENSITY IS ABOVE THE MINIMUM DESIRABLE LEVEL AT ALL SKELETAL SITES TESTED. This patient?s bone mineral density is above the minimum desirable level (T-score -1.0 or better) at all sites measured. The patient should follow a healthful lifestyle (good nutrition with adequate calcium and vitamin D, and appropriate weight-bearing exercise). Follow-Up: Consider repeating this study in 5 years or sooner if there is some new clinical indication. Reported by: DEJA on 02/04/2024 10:41:00 AM. Reviewed, dictated and finalized at location [facility]
== END 2024-02-04 09:58 | disposition home or self-care (01) ==
LOC: ANHIMG 10:00
PROVIDERS: PCP Internal Medicine; Visit Provider Obstetrics & Gynecology
DX: M81.0 Age-related osteoporosis without current pathological fracture (principal)
CPT/HCPCS: 77080

== ENCOUNTER 2024-08-04 14:20 | Outpatient (CLI) | payer MEDICARE, SELFPAY ==
--- NOTE | ~2024-08-04 | MM_ITS ---
EXAMINATION: MM screening vladimir BI w heydi HISTORY: Screening mammogram TECHNIQUE: Craniocaudal and mediolateral oblique 3-D tomosynthesis images were obtained and synthetic 2-D images were generated. CAD analysis was submitted and interpreted. COMPARISON: 05/07/2023, 03/29/2021, 12/07/2019 BREAST PARENCHYMAL COMPOSITION:Not Dense. The breasts are almost entirely fatty FINDINGS: No suspicious mass, calcification, or architectural distortion are identified in either maricarmen ast to suggest malignancy. There has been no suspicious interval change. IMPRESSION: No mammographic evidence of malignancy. Recommend routine screening mammography in one year. BI-RADS Category 1: Negative Reviewed, dictated and finalized at location .
--- OUTSIDE RECORDS SUMMARY | 2024-08-04 16:17 | XMS_ITS | Encounter Summary ---
Author Organization [facility] Address 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 Gender Identity Not on file Sexual Orientation Not on file documented as of this encounter Plan of Treatment Not on file documented as of this encounter Procedures Procedure Name Priority Date/Time Associated Diagnosis Comments CBC WITH DIFFERENTIAL Routine 08/25/2004 3:20 PM DEICER INSPECTOR ELECTRIC CBC WITH DIFFERENTIAL Routine 08/25/2004 3:20 PM DEICER INSPECTOR ELECTRIC documented in this encounter Results * (ABNORMAL) CBC WITH DIFFERENTIAL (08/25/2004 3:20 PM DEICER INSPECTOR ELECTRIC) NEUTROPHILS 77(H) 45 - 70 % INTERFAC E SYSTEM LYMPHOCYTES 15(L) 16 - 45 % INTERFAC E SYSTEM MONOCYTES 8 3 - 13 % INTERFACE SYSTEM EOSINOPHILS 0 0 - 7 % INTERFAC E SYSTEM BASOPHILS 0 0 - 2 % INTERFACE SYSTEM NEUTROPHIL ABSOLUTE 10.04(H) 1.90 - 7.00 K/uL INTERFACE SYSTEM LYMPHOCYTE ABSOLUTE 1.98 0.70 - 4.50 K/uL INTERFACE SYSTEM MONOCYTE ABSOLUTE 1.03 0.10 - 1.30 K/uL INTERFACE SYSTEM EOSINOPHIL ABSOLUTE 0.03 0.00 - 0.70 K/uL INTERFACE SYSTEM BASOPHILS ABSOLUTE 0.03 0.00 - 0.20 K/uL INTERFACE SYSTEM 08/25/2004 3:20 PM DEICER INSPECTOR ELECTRIC Boni Elizabeth MD HEMATOLOGY ORDERABLES Final Result Performing Organization Address City/[facility] de Phone Number INTERFACE SYSTEM Refer to clinic/hospital department * (ABNORMAL) CBC WITH DIFFERENTIAL (08/25/2004 3:20 PM DEICER INSPECTOR ELECTRIC) WBC 13.1(H) 4.0 - 9.8 K/uL INTERFACE SYSTEM RBC 4.59 3.90 - 4.90 M/uL INTERFACE SYSTEM HEMOGLOBIN 13.3 11.8 - 14.8 g/dL INTERFACE SYSTEM HEMATOCRIT 41.4 35.5 - 44.0 % INTERFACE SYSTEM MCV 90.2 82.0 - 99.0 fL INTERFACE SYSTEM MCH 29.0 27.2 - 32.6 pg INTERFACE SYSTEM MCHC 32.1 31.5 - 35.5 % INTERFACE SYSTEM RDW 14.2 11.5 - 14.5 % INTERFACE SYSTEM RDW-STDEV 47.0 37.1 - 48.7 fL INTERFACE SYSTEM PLATELETS 324 140 - 350 K/uL INTERFACE SYSTEM MPV 10.2 9.3 - 12.4 fL INTERFACE SYSTEM 08/25/2004 3:20 PM DEICER INSPECTOR ELECTRIC Boni Elizabeth MD HEMATOLOGY ORDERABLES Final Result Performing Organization Address City/[facility] de Phone Number INTERFACE SYSTEM Refer to clinic/hospital department documented in this encounter Visit Diagnoses Diagnosis Acute pharyngitis- Primary documented in this encounter Care Teams Delivery Helper Relationship Specialty Start Date End Date Haim Saldivar MD [address] [place] [phone] PCP - General 11/16/02 documented as of this encounter
--- OUTSIDE RECORDS SUMMARY | 2024-08-04 16:17 | XMS_ITS ---
Author Organization [facility] Address [address] [place] [address] Care Team Providers Care Felt Hat Steamer Name Role Phone Henrietta Daniel Primary Care Provider Unavailab le Lizzeth Jones Unavailable [phone] Oneida Carvajal Unavailable Unavaila ble ZZ-Migration, Provider Unavailable Unavailab le Allergies Allergen (clinical drug ingredient) Drug/Non Drug Allergy documented on EMR Reaction Allergy Type Onset Date Status ULTRAM (uncoded) hives Allergy Act benjamin Neosporin rash Drug Allergy Active penicillin G Penicillin G Sodium hives Drug Allergy Active sulfadiazine sulfADIAZINE hives Drug Allergy A ctive REASON FOR VISIT [facility] To [facility] Conversion Encounter Medications Medication SIG (Take, Route, Frequency, Duration) Notes Start Date End Date Status PROAIR HFA 90 MCG/INH 2 PUFF(S) INHALED EVERY 6 HOURS *Please review for potential replacement for e-prescription and drug interaction check* 02/15/2023 Active Flonase Allergy Relief 50 MCG/ACT 2 spray(s) intranasally (avoid nasal septum) once a day Active ZyrTEC Allergy 10 MG 1 tab(s) orally once a day Active EPINEPHRINE AUTO-INJECTOR 0.3 MG DIRECTED INTRAMUSCULARLY ONCE for 1 DAY *Please review for potential replacement for e-prescription and drug interaction check* 02/12/2023 Active Lisinopril 40mg daily *Plea se review and pick correct strength-formulati on from [facility] options. If intended option is not shown, discontinue and re-order from Quick Search* Active Encounters Encounter Location Date Provider Diagnosis [facility] [address] [place] [address] 11/08/2023 Provider ZZ-Migration Mild persistent asthma, uncomplicated J45.30 ; Allergic rhinitis due to animal (cat) (dog) hair and dander J30.81 and Allergy to seafood Z91.013 Assessments Encounter Date Diagnosis (ICD Code) Assessment Notes Treatment Notes Treatment Clinical Notes Section Notes 11/08/2023 Mild persistent asthma, uncomplicated (ICD-10 - J45.30) 11/08/2023 Allergic rhinitis due to animal (cat) (dog) hair and dander (ICD-10 - J30.81) 11/08/2023 Allergy to seafood (ICD-10 - Z91.013) Plan Of Treatment Medication Medication Name Sig Start Date Stop Date Notes PROAIR HFA 90 MCG/INH 2 PUFF(S) INHALED EVERY 6 HOURS 02/15/2023 *Please review for potential replacement for e-prescription and drug interaction check* Flonase Allergy Relief 50 MCG/ACT 2 spray(s) intranasally (avoid nasal septum) once a day ZyrTEC Allergy 10 MG 1 tab(s) orally onc e a day EPINEPHRINE AUTO-INJECTOR 0.3 MG DIRECTED INTRAMUSCULARLY ONCE for 1 DAY 02/12/2023 *Please review for potential replacement for e-prescription and drug interaction check* Progress Notes * JOANNAAmandaDOB:1960 (63 yo F)Acc No.[id number]:11/08/2023 Patient: Amanda OZUNA Provider: Linsey Ryan :1960 A ge:62 Y S ex:Female Date:11/08/2023 [id number] Pcp:Daniel Shrestha Subjective: * Chief Complaints: * 1 . [facility] To [facility] Conversion Encounter. * Medical History: * Medications: T aking Lisinopril , Notes to Pharmacist: 40mg daily *Please review and pick correct strength-formulation from [facility] options. If intended option is not shown, discontinue and re-order from Quick Search* * Allergies: s ulfADIAZINE: hives, ULTRAM: hives, Neosporin: rash, Penicillin G Sodium: hives. Objective: * Vitals: Assessment: * Assessment: 1. M ild persistent asthma, uncomplicated - J45.30 (Primary) 2 . A llergic rhinitis due to animal (cat) (dog) hair and dander - J30.81 3 . A llergy to seafood - Z91.013 Plan: * Treatment: 2. A llergic rhinitis due to animal (cat) (dog) hair and dander Continue ZyrTEC Allergy Tablet, 10 MG, 1 tab(s), orally, once a day; C ontinue Flonase Allergy Relief Suspension, 50 MCG/ACT, 2 spray(s), intranasally (avoid nasal septum), once a day. 3. A llergy to seafood Start EPINEPHRINE AUTO-INJECTOR KIT, 0.3 MG, DIRECTED, INTRAMUSCULARLY, ONCE, 1 DAY, 1, Refills 0, Notes to Pharmacist: *Please review for potential replacement for e-prescription and drug interaction check*. * Billing Information: * Visit Code: * Procedure Codes: * Electronic signature of Alin VacaZ-Migration on 08/04/2024 at 04:17 PM CDT Sign off status: Pending * Provider: Linsey sevilla Migration Date: 0 11/08/2023 Generated for Jasiel dhaliwal/Emil/Luis on: 0 08/04/2024 04:17 PM CDT
--- OUTSIDE RECORDS SUMMARY | 2024-08-04 16:17 | XMS_ITS | Encounter Summary ---
Author Organization [facility] Address [address] [place] [address] Care Team Providers Care Motor Vehicle License Clerk Name Role Phone Haim Saldivar MD Primary Care Provider + Encounter Details Date Type Department Care Team (Latest Contact Info) Description 09/16/2001 Outpatient Historical HIS [facility] (Excluded Provider) Cholo Delarosa MD NO ADDRESS ON FILE LUMP OR MASS IN BREAST (Primary Dx) Social History Tobacco Use Types Packs/Day Years Used Date Smoking Tobacco: Never Assessed Comments Unknown Sex and Gender Information Value Date Recorded Sex Assigned at Not on file Legal 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
--- OUTSIDE RECORDS SUMMARY | 2024-08-04 16:17 | XMS_ITS | Encounter Summary ---
Author Organization [facility] Address [address] [place] [address] Care Team Providers Care Shopping Inspector Name Role Phone Haim Saldivar MD Primary Care Provider + Encounter Details Date Type Department Care Team (Latest Contact Info) Description 11/16/2002 Outpatient Historical HIS [facility] (Excluded Provider) Cholo Delarosa MD NO ADDRESS ON FILE SCREENING MAMM-MAILG NEOPL-OTHER (Primary Dx) Social History Tobacco Use Types Packs/Day Years Used Date Smoking Tobacco: Never Assessed Comments Unknown Sex and Gender Information Value Date Recorded Sex Assigned at Not on file Legal Sex Female 3: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
--- OUTSIDE RECORDS SUMMARY | 2024-08-04 16:17 | XMS_ITS | Clinical Summary ---
Author Organization [facility] Address [address] [place] [address] Phone Care Team Providers Care Mold Holder Name Role Phone Haim Saldivar MD Primary Care Provider + Allergies Active Allergy Reactions Criticality Noted Date Comments Iodinated Contrast Media Hives High 12/27/2010 Cfrlbybq-Qgvrnkibvr-Pakxqbxok Rash Low 2010 Penicillins Hives High 12/27/2010 Shellfish Containing Products Hives High 2010 Sulfa (Sulfonamide Antibiotics) Hives High 08/2010 Tramadol Hives High 12/27/2010 Medications metFORMIN (GLUCOPHAGE) 1,000 mg Oral tabletIndications :SALGADO (dyspnea on exertion) Take 1,000 mg by mouth 2 times daily with meals. Active MULTIVITS, W-CA,FE,OTH MIN (MULTIVITAMIN AND MINERAL ORAL)Indications: SALGADO (dyspnea on exertion) Take by mouth daily. Active pregabalin (LYRICA) 50 mg Oral Cap Take 50 mg by mouth. As needed Active peg 400-propylene glycol (SYSTANE) 0.4-0.3 % OP solution 1 Drop every 2 hours. As needed Active MOMETASONE FUROATE (NASONEX BOTH NOSTRIL) Administer in each nostril. As needed Active lecithin 400 mg Oral Cap Take 400 mg by mouth daily. As needed Active Wild Chapman Misc Extr by Misc.(Non-Drug ; Combo Route) route. As needed Active P-EPHED HCL/ACETAMINOPHEN (PAIN RELIEVER PM ORAL) Take by mouth. As needed Active HYDROcodone-aceta minophen (LORTAB) 5-500 mg Oral tablet Take 1 Tab by mouth every 4 hours as needed. As needed Active lisinopril (PRINIVIL) 10 mg Oral tabletIndications :Chest pain, unspecified Take 10 mg by mouth daily. Active ERGOCALCIFEROL, VITAMIN D2, (VITAMIN D ORAL)Indications: Chest pain, unspecified Take by mouth. Act benjamin vitamin E 400 unit Oral TabIndications:Ch est pain, unspecified Take by mouth. Act benjamin flaxseed Oil 1,000 mg Oral CapIndications:Ch est pain, unspecified Take by mouth. Act benjamin ipratropium-albut wilbert (DUONEB) 0.5 mg-3 mg(2.5 mg base)/3 mL Solution for Nebulization Take 3 mL by inhalation every 4 hours as needed for Shortness of Breath. 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 Family History Medical History Relation Name Comments Asthma Maternal Grandfather Bronchitis Maternal Grandfather Emphysema Maternal Grandfather Hypertension Maternal Grandfather Heart Failure Maternal Grandmother Hypertension Maternal Grandmother Asthma Mother Bronchitis Mother Heart Failure Mother Cancer Paternal Uncle colon Relation Name Status Comments Brother Alive Father Alive Maternal Grandfather Maternal Grandmother Mother Paternal Grandfather Paternal Grandmother Paternal Uncle Sister Alive Social History Tobacco Use Types Packs/Day Years Used Date Smoking Tobacco: Never Smokeless Tobacco: Never Alcohol Use Standard Drinks/Week Comments Not Asked 0 (1 standard drink = 0.6 oz pur e alcohol) Comments Unknown Sex and Gender Information Value Date Recorded Sex Assigned at Not on file Legal Sex Female 3:04 AM ARCHITECT INTERNSHIP Gender Identity Not on file Sexual Orientation Not on file Last Filed Vital Signs Vital Sign Reading Time Taken Comments Blood Pressure 124/82 06/16/2014 11:43 AM ARCHITECT INTERNSHIP Pulse 68 06/16/2014 11:43 AM ARCHITECT INTERNSHIP Temperature - - Respiratory Rate 16 06/16/2014 11:4 3 AM ARCHITECT INTERNSHIP Oxygen Saturation 97% 06/16/2014 11: 43 AM ARCHITECT INTERNSHIP RA Inhaled Oxygen Concentration - - Weight 161.8 kg (356 lb 9.6 oz) 015 11:43 AM ARCHITECT INTERNSHIP Height 162.6 cm (5' 4 ) 06/16/2014 11:4 3 AM ARCHITECT INTERNSHIP Body Mass Index 61.21 06/16/2014 11:43 AM ARCHITECT INTERNSHIP Plan of Treatment Health Maintenance Due Date Last Done Comments DTAP/TDAP/TD VACCINES (1 - Tdap) 1980 CERVICAL CANCER SCREENING 12/29/1991 BREAST CANCER SCREENING 2001 COLORECTAL SCREENING 2006 Colorectal Cancer Screening 2006 FIT-DNA Q 3 years 2006 FIT/FOBT Q 1 year 2006 Flex Sig/CT Colonography Q 5 years 2006 ZOSTER VACCINE (1 of 2) 12/29/2011 INFLUENZA VACCINE (#1) 2023 RSV VACCINE (60+ or ) (1 - 1-dose 75+ series) 2036 Insurance [facility] BLUE ACCESS/TRUE BLUE PPO Care Teams Mold Holder Relationship Specialty Start Date End Date Haim Saldivar MD [address] [place] [phone] PCP - General 11/16/02
--- OUTSIDE RECORDS SUMMARY | 2024-08-04 16:17 | XMS_ITS | Referral Summary ---
Author Organization [facility] Address [address] [place] [address] Care Team Providers Care Fiberglass Dowel Drawing Operator Name Role Phone Lynnette Leslie RN Unavailable [phone] Daniel Shrestha DO Primary Care Provider [phone] Source Comments [facility],non-owned Affiliates and Associated Physician Practices is amultiple site organization consisting of ambulatory clinics and hospital sitesin [place], [place], [place] and [place]. This disclosure is being madepursuant to the Care Everywhere program and may not contain all information available regarding this patient. Last updated 18.[facility] Encounters Date Type Department Care Team Description 06/30/2024 Orders Only [facility] GI [address] [place] [address] Atif Coppola MD Screening for colon cancer ; Gastrointestinal hemorrhage, unspecified gastrointestinal hemorrhage type; Dysphagia, unspecified type 06/30/2024 10:00 AM GRAIN THRESHER Office Visit [facility] - GI [address] [place] [address] Lyndon Menon, PRODUCT MANAGEMENT SPECIALIST-FOURTH OFFICER Gastrointestinal hemorrhage, unspecified gastrointestinal hemorrhage type (Primary Dx); Hx of hemorrhoids; Gastroesophageal reflux disease without esophagitis; Dysphagia, unspecified type; History of ovarian cancer from Last 3 Months Allergies Active Allergy Reactions Criticality Noted Date Comments Allergy Urticaria Medium 12/27/2010 Contrast-Iodinated Agents For Ct/Other Urticaria,Shortness of Breath High 05/30/2015 Pt reported feeling a tingling and throat closing before hives presented. Said Sulfa was in an IV Iodine Urticaria,Anaphylaxi s High 03/26/2010 Other reaction(s): Hives Pt reported tingling and throat closing before hives presented. Solrkacf-Wotzifhiim-Xdt ymyxin Rash Medium 04/16/2010 neosporin Penicillins Urticaria,Anaphylaxi s High 03/26/2010 Pt reported tingling and throat closing up before hives presented. Shellfish Urticaria,Anaphylaxi s High 03/26/2010 Pt reported tingling and throat closing before hives presented. Sulfa Drugs Urticaria,Anaphylaxi s High 03/26/2010 Pt reported feeling a tingling and throat closing before hives presented. Said Sulfa was in an IV. Tramadol Urticaria High 05/30/2015 Other reaction(s): Hives Medications * Be aware that medications may not be up to date on this document. Alwaysverify current medications with the patient. Medication Sig Dispensed Refills Start Date End Date Status multivitamin daily (THERAGRAN) tablet Take 1 (one) tablet by mouth daily with food Active Lecithin 400 MG CAPS Take by mouth as needed 04/16/2010 Active Flaxseed, Linseed, 1000 MG CAPS Take 1 Cap by mouth once daily. Active coenzyme Q10 (COQ10) 100 MG capsule Take 100 (one hundred) mg by mouth once daily Active Calcium Carbonate-Vitamin D (CALCIUM + D PO) Take 1 tablet by mouth once daily Active Other Active Selenium 200 MCG CAPS Take 1 Cap by mouth once daily. Active fluticasone propionate (FLONASE) 50 MCG/ACT nasal spray [place] 2 (two) sprays into each nostril once daily 3 02/10/2015 Active vitamin E 400 UNIT/15ML liquid Take 400 Units by mouth Active magnesium 500 MG tablet Take 1 (one) tablet by mouth once daily Active montelukast (SINGULAIR) 10 MG tablet Take 1 (one) tablet by mouth at bedtime Active Nutritional Supplements (EQUATE PLUS PO) Take 1 tablet by mouth once daily Active Cholecalciferol (VITAMIN D-3) 1000 UNITS Take 1 (one) capsule by mouth once daily Active EPIPEN 0.3 MG/0.3ML auto-injector pen USE DIRECTED. 1 01/22/2018 A ctive insulin syringe-needle (B-D INS SYR ULTRAFINE 1CC/31G) 31G X 5/16 1 ML syringe USE 1-2 SYRINGES EVERY OTHER DAY DIRECTED 1 01/22/2018 Active lisinopril (PRINIVIL; ZESTRIL) 40 MG tablet Take 1 (one) tablet by mouth once daily Active hydroCHLOROthiazide (HYDRODIURIL) 12.5 MG Take 25 mg by mouth once daily Active PROAIR HFA 108 (90 Base) MCG/ACT inhaler INHALE 2 PUFFS BY MOUTH EVERY 6 HOURS NEEDED 25.5 g 4 02/05/2021 Active Turmeric (QC TUMERIC COMPLEX PO) Take 1 tablet by mouth once daily Active Tetrahydrozoline HCl (VISION CLEAR OP) 1 Dose by Ophthalmic route as needed Active Zinc 50 MG Take 1 tablet by mouth once daily Active Folic Acid (FOLATE PO) Take 1 tablet by mouth once daily Active meclizine (ANTIVERT) 25 MG tablet Take 25 mg by mouth 3 times daily as needed for Dizziness Active BREO ELLIPTA 200-25 MCG/INH inhaler INHALE 1 PUFF BY MOUTH ONCE DAILY 1 Each 5 09/10/2021 Active triamcinolone acetonide (Kenalog) 0.5 % cream Apply to affected area 2 times daily 15 g 1 05/14/2022 Active Active Problems Problem Noted Date Diagnosed Date Increased endometrial stripe thickness 1 SOB (shortness of breath) 08/01/2018 Low back pain 01/17/2015 Infectious mononucleosis 01/17/2014 Nausea with vomiting 01/15/2014 Abnormal LFTs 01/15/2014 Abdominal pain, RUQ (right upper quadrant) 01/13 Malaise and fatigue 01/13/2014 GI bleed 10/21/2013 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 Overview (03/04/2018): Overview: ICD-10 update SALGADO (dyspnea on exertion) 12/27/2010 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 Resolved Problems Problem Noted Date Diagnosed Date Resolved Date Cough 01/13/2014 10/05/2014 Fever 01/13/2014 10/05/2014 Social History Tobacco Use Types Packs/Day Years Used Date Smoking Tobacco: Never Smokeless Tobacco: Never Tobacco Cessation:Counseling Given: No Alcohol Use Standard Drinks/Week Comments No 0 (1 standard drink = 0.6 oz pur e alcohol) Sex and Gender Information Value Date Recorded Sex Assigned at Not on file Gender Identity Not on file Sexual Orientation Not on file Last Filed Vital Signs Vital Sign Reading Time Taken Comments Blood Pressure 151/88 06/30/2024 9:55 AM GRAIN THRESHER Pulse 74 04/11/2021 3:45 PM GRAIN THRESHER Temperature 36.6 C (97.8 F) 06/02/2020 9:51 AM GRAIN THRESHER Respiratory Rate 14 04/11/2021 3:45 PM GRAIN THRESHER Oxygen Saturation 98% 04/11/2021 3:45 PM GRAIN THRESHER Inhaled Oxygen Concentration 21% 08/03/2018 2 :28 AM CDT Weight 184.6 kg (407 lb) 06/30/2024 9:49 AM GRAIN THRESHER Height 160 cm (5' 3 ) 06/30/2024 9:49 AM GRAIN THRESHER Body Mass Index 72.1 06/30/2024 9:49 AM GRAIN THRESHER Functional Status Functional Status Response Date of Assess ment Is person deaf or have serious hearing difficult y? No 01/13/2014 Is person blind or have serious difficulty seein g? No 01/13/2014 Does person have serious dif ficulty walking/climbing stairs? No 01/13/2014 Does person have difficulty dressing/bathing? No 01/13/2014 Does person have difficulty doing errands alone? No 01/13/2014 Cognitive Status Response Date of Assessm ent Does person have difficulty concentrating/remembering/making decisions? No 01/13/2014 Plan of Treatment Upcoming Encounters Date Type Department Care Team (Latest Contact Info) Description 08/23/2024 11:00 AM CDT Hospital Encounter [facility] - Endoscopy Services [address] [place] [address] Atif Coppola MD [address] [place] [address] Surgery General 08/23/2024 11:00 AM CDT Procedure visit [facility] - GI [address] [place] [address] [place] [address] 08/23/2024 11:00 AM CDT - 08/23/2024 11:30 AM CDT Surgery [facility] - Endoscopy Services [address] [place] [address] Atif Coppola MD [address] [facility] [address] [place] [address] ESOPHAGOGASTRODUODENOSCOPY (EGD) DIAGNOSTIC Scheduled Procedures Name Priority Associated Diagnoses Date/Ti me ESOPHAGOGASTRODUODENOSCOPY ( EGD) DIAGNOSTIC Gastrointestinal hemorrhage, unspecified gastrointestinal hemorrhage type Dysphagia, unspecified type Screen for colon cancer 08/23/2024 11:00 AM CDT COLONOSCOPY SCREEN Gastrointestinal hemorrhage, unspecified gastrointestinal hemorrhage type Dysphagia, unspecified type Screen for colon cancer 08/23/2024 11:00 AM CDT Procedures Procedure Name Priority Date/Time Associated Diagnosis Comments ENDOSCOPY, COLON, SCREENING Routine 04/11/2021 3:04 PM GRAIN THRESHER Hx of colonic polyps HPV DETECTION HIGH RISK TRIPP Routine 03/22/2020 1:48 PM CDT Well woman exam with routine gynecological exam MAMMOGRAM 10/28/2018 6:28 AM CDT BASIC METABOLIC PANEL (CALCIUM TOTAL) Routine 08/27/2018 12:21 PM CDT Elevated serum creatinine HEPATITIS C ANTIBODY Routine 01/17/2014 6:10 AM CDT HIV-1 HIV-2 ANTIBODY RAPID Routine 01/13/2014 2:40 PM CDT Abdominal pain, generalized UTI (lower urinary tract infection) LFT elevation GI bleed from Last 3 Months or Most Recently Relevant to Health Maintenance Results * ENDOSCOPY, COLON, SCREENING (04/11/2021 3:04 PM GRAIN THRESHER) Report Endoscopy POC _ Patient Name: Amanda Martinez Procedure Date: 04/11/2021 3:04 PM Date of : 1960 Admit Type: Outpatient Age: 60 Gender: Female Ethnicity: Not or Race: White Attending MD: Atif Coppola MD _ Procedure: Colonoscopy Indications: Personal history of colonic polyps Providers: Atif Coppola MD (Doctor), Shama Monsalve RN, lCaire Lockett RN Referring MD: Daniel Shrestha (Referring MD) Medicines: Monitored Anesthesia Care Complications: No immediate complications. _ Estimated Blood Loss: Estimated blood loss: none. Procedure: Pre-Anesthesia Assessment: - Prior to the procedure, a History and Physical was performed, and patient medications and allergies were reviewed. The patient's tolerance of previous anesthesia was also reviewed. The risks and benefits of the procedure and the sedation options and risks were discussed with the patient. All questions were answered, and informed consent was obtained. Prior Anticoagulants: The patient has taken no previous anticoagulant or antiplatelet agents. ASA Grade Assessment: III - A patient with severe systemic disease. After reviewing the risks and benefits, the patient was deemed in satisfactory condition to undergo the procedure. After I obtained informed consent, the scope was passed under direct vision. Throughout the procedure, the patient's blood pressure, pulse, and oxygen saturations were monitored continuously. The Colonoscope was introduced through the anus and advanced to the cecum, identified by appendiceal orifice and ileocecal valve. The colonoscopy was performed without difficulty. The patient tolerated the procedure well. The quality of the bowel preparation was fair. The ileocecal valve, appendiceal orifice, and rectum were photographed. Impression: - Preparation of the colon was fair. - Diverticulosis. - Two 3 to 5 mm polyps in the transverse colon, removed with a jumbo cold forceps. Resected and retrieved. - Three 3 to 4 mm polyps in the sigmoid colon, removed with a jumbo cold forceps. Resected and retrieved. Findings: Diverticula were found in the colon. Two sessile polyps were found in the transverse colon. The polyps were 3 to 5 mm in size. These polyps were removed with a jumbo cold forceps. Resection and retrieval were complete. Estimated blood loss: none. Three sessile polyps were found in the sigmoid colon. The polyps were 3 to 4 mm in size. These polyps were removed with a jumbo cold forceps. Resection and retrieval were complete. Estimated blood loss: none. _ Recommendation: - Written discharge instructions were provided to the patient. - The signs and symptoms of potential delayed complications were discussed with the patient. - Patient has a contact number available for emergencies. - Return to normal activities tomorrow. - Resume previous diet. - Continue present medications. - Await pathology results. - Repeat colonoscopy in 5 years for surveillance based on pathology results. Procedure Code(s): --- Professional --- 91626, Colonoscopy, flexible; with biopsy, single or multiple --- Technical --- 62445, Colonoscopy, flexible; with biopsy, single or multiple Diagnosis Code(s): --- Professional --- K63.5, Polyp of colon Z86.010, Personal history of colonic polyps K57.30, Diverticulosis of large intestine without perforation or abscess without bleeding --- Technical --- K63.5, Polyp of colon Z86.010, Personal history of colonic polyps K57.30, Diverticulosis of large intestine without perforation or abscess without bleeding CPT copyright 2019 [employer]. All rights reserved. The codes documented in this report are preliminary and upon braille coder review may be revised to meet current compliance requirements. Atif Coppola MD 04/11/2021 3:37:40 PM This report has been signed electronically. Number of Addenda: 0 Note Initiated On: 04/11/2021 3:04 PM [facility] 04/11/2021 3:04 PM GRAIN THRESHER Atif Coppola MD GI PROCEDURE ORDERAB LES Performing Organization Address [facility] Co de Phone Number [facility] * HPV DETECTION HIGH RISK TRIPP (03/22/2020 1:48 PM CDT) High Risk Human Papilloma Result Not Detected Not Detected 03/24/2020 3:03 PM CDT [facility] High Risk Human Papilloma Interp 03/24/2020 3:03 PM CDT [facility] Comment:High Risk Human Lokes[place] lloma Virus was Not Detected. Pathology/Cytolo gy MISCELLANEOUS SAMPLES / Unknown 03/22/2020 1:48 PM CDT 03/23/2020 12:17 PM CDT Narrative [facility] - 03/24/2020 3:03 PM CDT Nucleic acid isolated from the specimen was analyzed with a nucleic acid amplification test (FDA approved Gen-Probe HPV Assay) to detect high risk human papilloma virus (Types: 16, 18, 31, 33, 35, 39, 45, 51, 52, 56, 58, 59, 66, and 68). The reference range is Not Detected . Comment: These test results should not be used as the sole basis for clinical assessment and treatment of patients. These results should always be correlated with other available data (cytology, histology, and clinical information). Swetha Bernstein MD LAB - MICROBIOLOGY O RDERABLES Performing Organization Address City/[facility]/ZIP Co de Phone Number [facility] [address] [id number] [phone] * MAMMOGRAM (10/28/2018 6:28 AM CDT) Anatomical Region Laterality Modality Other Narrative 10/28/2018 6:28 AM CDT Ordered by an unspecified provider. Scanned Document SCANNING ONLY * (ABNORMAL) BASIC METABOLIC PANEL (CALCIUM TOTAL) (08/27/2018 12:21 PM CDT) Glucose 102 74 - 106 mg/dL 08/27/2018 1:17 PM CDT [facility] Sodium 136 136 - 145 mmol/L 08/27/2018 1:17 PM CDT [facility] Potassium 4.6 3.5 - 5.1 mmol/L 08/27/2018 1:17 PM CDT [facility] Chloride 104 98 - 107 mmol/L 08/27/2018 1:17 PM CDT [facility] CO2 26 22 - 31 mmol/L 08/27/2018 1:17 PM CDT [facility] Calcium 9.1 8.5 - 10.1 mg/dL 08/27/2018 1:17 PM CDT [facility] Anion Gap 6(L) 8 - 16 mmol/L 08/27/2018 1:17 PM CDT [facility] BUN 29(H) 7 - 21 mg/dL 08/27/2018 1:17 PM CDT [facility] Creatinine 0.99 0.50 - 1.30 mg/dL 08/27/2018 1:17 PM CDT [facility] eGFR by MDRD 58(L) >60 mL/min/1.7 3m2 08/27/2018 1:17 PM CDT [facility] eGFR by MDRD >60 >60 mL/min/1.7 3m2 08/27/2018 1:17 PM CDT [facility] Blood BLOOD SPECIMEN / Unknown Lab Venipuncture / Unknown 08/27/2018 12:21 PM CDT 08/27/2018 12:22 PM CDT Latasha Wells MD LAB - CHEMISTRY OR DERABLES [facility] [address] [place] [address] * HEPATITIS C ANTIBODY (01/17/2014 6:10 AM CDT) Pathologist [facility] HCV Antibody Screen Non Reactive Non Reactive 01/17/2014 7:49 AM CDT [facility] Blood BLOOD SPECIMEN / Unknown Lab Venipuncture / Unknown 01/17/2014 6:10 AM CDT 01/17/2014 6:14 AM CDT Narrative [facility] - 01/17/2014 7:49 AM CDT Nonreactive - Antibodies to HCV were not detected, result does not exclude early acute HCV infection. Zaki Lewis MD LAB - CHEMISTRY ORDE EMILIANO [facility] [address] [place] [address] * HIV-1 HIV-2 ANTIBODY RAPID (01/13/2014 2:40 PM CDT) [facility] HIV-1/HIV-2 Rapid Antibody Non Reactive Non Reactive 01/13/2014 3:47 PM CDT [facility] Blood BLOOD SPECIMEN / Unknown Lab Venipuncture / Unknown 01/13/2014 2:40 PM CDT 01/13/2014 3:10 PM CDT Jas Peters MD LAB - CHEMISTR Y ORDERABLES [facility] [address] [place] [address] from Last 3 Months or Most Recently Relevant to Health Maintenance Advance Directives * Full Code (Latest Code Status on File) Date Activated Date Inactivated Comments 08/19/2018 4:29 PM 08/20/2018 7:49 PM * Full Code Date Activated Date Inactivated Comments 08/01/2018 11:53 PM 08/04/2018 8:11 PM * Full Code Date Activated Date Inactivated Comments 08/01/2018 11:01 PM 08/01/2018 11:53 PM * Full Code Date Activated Date Inactivated Comments 01/13/2014 11:38 AM 01/17/2014 2:56 PM * Full Code Date Activated Date Inactivated Comments 01/13/2014 11:36 AM 01/13/2014 11:38 AM Care Teams Fiberglass Dowel Drawing Operator Relationship Specialty Start Date End Date Daniel Shrestha DO PCP - General Internal Medicine 12/09/16 Lynnette Leslie RN Special Library Librarian 10/20/13
--- OUTSIDE RECORDS SUMMARY | 2024-08-04 16:17 | XMS_ITS | Encounter Summary ---
Author Organization [facility] Address [address] [place] [address] Care Team Providers Care Java Mobile Developer Name Role Phone Haim Saldivar MD Primary Care Provider + Encounter Details Date Type Department Care Team (Late st Contact Info) Description 08/27/2004 Outpatient Historical [facility] Yaya Bojorquez, [id number] [place] [phone] Er, Authorized P NO ADDRESS ON FILE UNSPECIFIED VIRAL INFECTION (Primary Dx) Social History Tobacco Use Types Packs/Day Years Used Date Smoking Tobacco: Never Assessed Comments Unknown Sex and Gender Information Value Date Recorded Sex Assigned at Not on file Legal Sex Female 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 Gender Identity Not on file Sexual Orientation Not on file documented as of this encounter Plan of Treatment Not on file documented as of this encounter Procedures Procedure Name Priority Date/Time Associated Diagnosis Comments MONONUCLEOSIS SCREEN Routine 08/27/2004 3:47 AM CDT CBC WITH DIFFERENTIAL Routine 08/27/2004 3:22 AM CDT CBC WITH DIFFERENTIAL Routine 08/27/2004 3:22 AM CDT documented in this encounter Results * MONONUCLEOSIS SCREEN (08/27/2004 3:47 AM CDT) MONONUCLEOSIS SCREEN Negative Negative INTERFACE SYSTEM Comment: PERFORMED ON EDTA PLASMA- SESUM HEMOLYZED 08/27/2004 3:47 AM CDT [facility] HEMATOLOGY ORDERABLES Final Result Performing Organization Address [facility] Phone Number INTERFACE SYSTEM Refer to clinic/hospital department * (ABNORMAL) CBC WITH DIFFERENTIAL (08/27/2004 3:22 AM CDT) NEUTROPHIL ABSOLUTE 5.10 1.90 - 7.00 K/uL INTERFACE SYSTEM LYMPHOCYTE ABSOLUTE 3.77 0.70 - 4.50 K/uL INTERFACE SYSTEM MONOCYTE ABSOLUTE 0.92 0.10 - 1.30 K/uL INTERFACE SYSTEM EOSINOPHIL ABSOLUTE 0.10 0.00 - 0.70 K/uL INTERFACE SYSTEM BASOPHILS ABSOLUTE 0.00 0.00 - 0.20 K/uL INTERFACE SYSTEM NEUTROPHILS, SEG 50 45 - 70 % INT ERFACE SYSTEM LYMPHOCYTES 35 16 - 45 % INTERFAC E SYSTEM MONOCYTES 9 3 - 13 % INTERFACE SYSTEM EOSINOPHILS 1 0 - 7 % INTERFAC E SYSTEM BASOPHILS 0 0 - 2 % INTERFACE SYSTEM METAMYELOCYTE 1(H) <=0 % INTERF DALE SYSTEM MYELOCYTES 1(H) <=0 % INTERFACE SYSTEM PROMYELOCYTE 1(H) <=0 % INTERFA CE SYSTEM ATYPICAL LYMPHOCYTE 2 0 - 5 % INTERFACE SYSTEM PLATELET EST. Normal Normal INTERF DALE SYSTEM ANISOCYTOSIS Slight INTERFA CE SYSTEM MICROCYTES Slight INTERFACE SYSTEM 08/27/2004 3:22 AM CDT [facility] HEMATOLOGY ORDERABLES Final Result Performing Organization Address [facility] Phone Number INTERFACE SYSTEM Refer to clinic/hospital department * (ABNORMAL) CBC WITH DIFFERENTIAL (08/27/2004 3:22 AM CDT) WBC 10.2(H) 4.0 - 9.8 K/uL INTERFACE SYSTEM RBC 4.56 3.90 - 4.90 M/uL INTERFACE SYSTEM HEMOGLOBIN 13.2 11.8 - 14.8 g/dL INTERFACE SYSTEM HEMATOCRIT 41.2 35.5 - 44.0 % INTERFACE SYSTEM MCV 90.4 82.0 - 99.0 fL INTERFACE SYSTEM MCH 28.9 27.2 - 32.6 pg INTERFACE SYSTEM MCHC 32.0 31.5 - 35.5 % INTERFACE SYSTEM RDW 13.8 11.5 - 14.5 % INTERFACE SYSTEM RDW-STDEV 45.7 37.1 - 48.7 fL INTERFACE SYSTEM PLATELETS 299 140 - 350 K/uL INTERFACE SYSTEM MPV 9.9 9.3 - 12.4 fL INTERFACE SYSTEM 08/27/2004 3:22 AM CDT Yaya Bojorquez DO HEMATOLOGY ORDERABLES Final Result INTERFACE SYSTEM Refer to clinic/hospital department documented in this encounter Visit Diagnoses Diagnosis Unspecified viral infection, in conditions classified elsewhere and of unspecified site- Primary documented in this encounter Care Teams Java Mobile Developer Relationship Specialty Start Date End Date Haim Saldivar MD [address] [place] [address] PCP - General 11/16/02 documented as of this encounter
--- OUTSIDE RECORDS SUMMARY | 2024-08-04 16:17 | XMS_ITS | Encounter Summary ---
Author Organization [facility] Address 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 Clinical History: Left knee pain. Findings: Examination of the left knee fails to demonstrate evidence of fracture, dislocation, or subluxation. Osteophytic spurs are present at the lateral femoral condyle and superior patella. Impression: No distinct fracture. . Examination: Left knee, 4 views.Clinical History: Left knee pain.Findings: Examination of the left knee fails to demonstrate evidence of fracture, dislocation, or subluxation. Osteophytic spurs are present at the lateral femoral condyle and superior patella.Impression: No distinct fracture.. Procedure Note Provider, Historical - 03/15/2009 Examination: Left knee, 4 views. Clinical History: Left knee pain. Findings: Examination of the left knee fails to demonstrate evidence of fracture,dislocation, or subluxation. Osteophytic spurs are present at the lateral femoral condyle and superiorpatella. Impression: No distinct fracture. . Examination: Left knee, 4 views.Clinical History: Left knee pain.Findings:Examination of the left knee fails to demonstrate evidence of fracture, dislocation, or subluxation.Osteophytic spurs are present at the lateral femoral condyle and superior patella.Impression: No distinctfracture.. Emilia Ledezma MD DIAGNOSTIC IMAGING ORDERABLES Fi nal Result documented in this encounter Visit Diagnoses Not on filedocumented in this encounter Care Teams Brownfield Redevelopment Specialist Relationship Specialty Start Date End Date Haim Saldivar MD [address] [place] [address] PCP - General 11/16/02 documented as of this encounter
--- OUTSIDE RECORDS SUMMARY | 2024-08-04 16:17 | XMS_ITS ---
Author Organization [facility] Address [address] [place] [address] Care Team Providers Care Communications Project Lead Name Role Phone Daniel Shrestha Primary Care Provider Unavailab Lizzeth Weller Unavailable [phone] Oneida Carvajal Unavailable Unavaila ble REASON FOR VISIT Immunotherapy OOP Estimate Encounters Encounter Location Date Provider Diagnosis [facility] [address] [place] [address] 02/12/2023 Lizzeth Jones Plan Of Treatment No Information Progress Notes * Amanda MARSHALLDOB:1960 (62 yo F)Acc No.[id number]:02/12/2023 Patient: Amanda Ashley :1960 A ge:62 Y S ex:Female Address:[address] [place] [address] * true * Date: Generated for Printi ng/Faxing/eTransmitting on: 0 08/04/2024 04:17 PM CDT
--- OUTSIDE RECORDS SUMMARY | 2024-08-04 16:17 | XMS_ITS | Continuity of Care Document ---
Author Organization [facility] Address [address] [place] [address] [address] [place] [address] Phone Care Team Providers Care Waste Paper Hammermill Operator Name Role Phone Bell OD, Hermilo Unavailable Unavailable Procedures Procedure Date Eye Exam & Treatment Refraction Eye Exam & Treatment Refraction Advance Directives Directive Yes / No Effective Date File Name No Information Encounters Encounter Description Practice Location Reason(s) For Visit Diagnoses Date Provider Providers Copied on Encounter [facility], [address] [place] [address] [address], [place], [place], [id number], tel:[phone] [facility] No Information 4-201 0 Bell OD Hermilo. [address], [address], [place], [place], [facility], [place]. tel:[phone] Referring Provider: Haim Saldivar MD , [address], [place], [address]. tel:[phone] [facility], [address] [place] [address] [address], [place], [place], [id number], tel:[phone] [facility] No Information 3-200 7 Bell OD Hermilo. [address], [address], [place], [address], . tel:[phone] Family History Family Member Type Diagnosis Age At Onset No Information Payers Payer name Insurance type Covered libertarian ID Authoriza tireid(s) [facility] CI [id number] Social History Type Description Quantity Date Captured Comments Sex Female Smoking Status No Information Chief Complaint And Reason For Visit No Information Reason For Referral Reason For Referral No Information History Of Present Illness Encounter Date Complaint History Of Prese nt Illness No Information Functional Status Date Functional Assessmen t No Information Instructions Date Instruction Additional Infor mation No Information Assessments Type Assessment Date No Information Patient Care Teams Name Effective Dates (start - stop) Status Members No Information
--- OUTSIDE RECORDS SUMMARY | 2024-08-04 16:17 | XMS_ITS | Clinical Summary ---
Author Organization [facility] Address [address] [facility] [place] [address] Care Team Providers Care Cardiac Nurse Practitioner Name Role Phone Lynnette Leslie RN Unavailable [phone] Daniel Shrestha DO Primary Care Provider [phone] Source Comments [facility],non-owned Affiliates and Associated Physician Practices is amultiple site organization consisting of ambulatory clinics and hospital sitesin [place], [place], [place] and [place]. This disclosure is being madepursuant to the Care Everywhere program and may not contain all information available regarding this patient. Last updated 18.[facility] Allergies Active Allergy Reactions Criticality Noted Date Comments Allergy Urticaria Medium 12/27/2010 Contrast-Iodinated Agents For Ct/Other Urticaria,Shortness of Breath High 05/30/2015 Pt reported feeling a tingling and throat closing before hives presented. Said Sulfa was in an IV Iodine Urticaria,Anaphylaxi s High 03/26/2010 Other reaction(s): Hives Pt reported tingling and throat closing before hives presented. 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 Overview (03/04/2018): Overview: ICD-10 update SALGADO (dyspnea on exertion) 12/27/2010 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 Resolved Problems Problem Noted Date Diagnosed Date Resolved Date Cough 01/13/2014 10/05/2014 Fever 01/13/2014 10/05/2014 Encounters Date Type Department Care Team Description 06/30/2024 10:00 AM STATISTICAL CLERK ADVERTISING Office Visit [facility] - [address] [address] Lyndon Menon, HOLDER PILE DRIVING-DYER HELPER Gastrointestinal hemorrhage, unspecified gastrointestinal hemorrhage type (Primary Dx); Hx of hemorrhoids; Gastroesophageal reflux disease without esophagitis; Dysphagia, unspecified type; History of ovarian cancer 06/30/2024 Orders Only [facility] - [address] [address] Atif Coppola MD Screening for colon cancer ; Gastrointestinal hemorrhage, unspecified gastrointestinal hemorrhage type; Dysphagia, unspecified type from Last 3 Months Family History Medical History Relation Name Comments Bleeding Disorders Mother at 6 5 Heart Disease Other Colon Cancer at or under age 50 Paternal Uncle in 50s Relation Name Status Comments Father Alive Mother Other Paternal Uncle Social History Tobacco Use Types Packs/Day Years [...] Comments Blood Pressure 151/88 06/30/2024 9:55 AM STATISTICAL CLERK ADVERTISING Pulse 74 04/11/2021 3:45 PM STATISTICAL CLERK ADVERTISING Temperature 36.6 C (97.8 F) 06/02/2020 9:51 AM STATISTICAL CLERK ADVERTISING Respiratory Rate 14 04/11/2021 3:45 PM STATISTICAL CLERK ADVERTISING Oxygen Saturation 98% 04/11/2021 3:45 PM STATISTICAL CLERK ADVERTISING Inhaled Oxygen Concentration 21% 08/03/2018 2 :28 AM CDT Weight 184.6 kg (407 lb) 06/30/2024 9:49 AM STATISTICAL CLERK ADVERTISING Height 160 cm (5' 3 ) 06/30/2024 9:49 AM STATISTICAL CLERK ADVERTISING Body Mass Index 72.1 06/30/2024 9:49 AM STATISTICAL CLERK ADVERTISING Plan of Treatment Upcoming Encounters Date Type Department Care Team (Latest Contact Info) Description 08/23/2024 11:00 AM CDT Hospital Encounter [facility] [address] [place] [address] Atif Coppola MD [address] [place] [address] Surgery General 08/23/2024 11:00 AM CDT Procedure visit [facility] - GI [address] [place] [address] 08/23/2024 11:00 AM CDT - 08/23/2024 11:30 AM CDT Surgery [facility] [address] [place] [address] Atif Coppola MD [address] [place] [address] ESOPHAGOGASTRODUODENOSCOPY (EGD) DIAGNOSTIC Scheduled Procedures Name Priority Associated Diagnoses Date/Ti me ESOPHAGOGASTRODUODENOSCOPY ( EGD) DIAGNOSTIC Gastrointestinal hemorrhage, unspecified gastrointestinal hemorrhage type Dysphagia, unspecified type Screen for colon cancer 08/23/2024 11:00 AM CDT COLONOSCOPY SCREEN Gastrointestinal hemorrhage, unspecified gastrointestinal hemorrhage type Dysphagia, unspecified type Screen for colon cancer 08/23/2024 11:00 AM CDT Health Maintenance Due Date Last Done Comments COLOGUARD (AGES 45-75) - COLON CA SCREENING 1960 CT COLONOGRAPHY - COLON CA SCREENING 1960 FIT - COLON CA SCREENING 1960 FLEX SIG - COLON CA SCREENING 1960 DTAP/TDAP/TD VACCINES (1 - Tdap) 1980 PNEUMOCOCCAL VACCINE 50+ (1 of 1 - PCV) 12/29/2011 ZOSTER VACCINE (1 of 2) 12/29/2011 LIPID TESTING 04/23/2015 04/23/2010 MAMMOGRAM 10/28/2020 10/28/2018, 11/2016 (Done Outside Per Report) Respiratory Syncytial Virus (RSV) Vaccine Pt: or over 60 yrs (1 - Risk 60-74 years 1-dose series) 2021 COVID-19 VACCINE (1 - season) 2024 INFLUENZA VACCINE (#1) 2024 DEPRESSION SCREENING 05/26/2024 MEDICARE AWV CALENDAR YEAR 2024 SCREENING FOR DIABETES 06/30/2024 9, 08/20/2018, 08/20/2018, Additional history exists PAP with HPV 03/22/2025 03/22/2020 COLON MONITORING 04/11/2026 04/11/2021, , 04/11/2021, Additional history exists Colorectal Cancer Screening 04/11/2026 COLONOSCOPY - COLON CA SCREENING 04/11/2031 04/11/2021, 04/11/2021, 04/11/2021, Additional history exists HIV SCREENING Completed 01/13/2014 HEPATITIS C SCREENING Completed 01/17/2014, 014 HEPATITIS B VACCINE Aged Out No longe r eligible based on patient's age to complete this topic HIB VACCINE Aged Out No longer eligi ble based on patient's age to complete this topic HPV VACCINE Aged Out No longer eligi ble based on patient's age to complete this topic MENINGOCOCCAL (Group B) VACCINE SHARED DECISION-MAKING Aged Out No longer eligible based on patient's age to complete this topic MENINGOCOCCAL GROUPS A/C/Y/W VACCINE Aged Out No longer eligible based on patient's age to complete this topic Procedures Procedure Name Priority Date/Time Associated Diagnosis Comments ENDOSCOPY, COLON, SCREENING Routine 04/11/2021 3:04 PM STATISTICAL CLERK ADVERTISING Hx of colonic polyps HPV DETECTION HIGH [...] * ENDOSCOPY, COLON, SCREENING (04/11/2021 3:04 PM STATISTICAL CLERK ADVERTISING) Report Endoscopy POC _ Patient Name: Amanda Martinez Procedure Date: 04/11/2021 3:04 PM Date of : 1960 Admit Type: Outpatient Age: 60 Gender: Female Ethnicity: Not or Race: White Attending MD: Atif Coppola MD _ Procedure: Colonoscopy Indications: Personal history of colonic polyps Providers: Atif Coppola MD (Doctor), Shama Monsalve, RN, Claire Lockett RN Referring MD: Daniel Shrestha (Referring [...] pathology results. Procedure Code(s): --- Professional --- 67961, Colonoscopy, flexible; with biopsy, single or multiple --- Technical --- 95298, Colonoscopy, flexible; with biopsy, single or multiple Diagnosis Code(s): --- Professional --- K63.5, Polyp of colon Z86.010, Personal history of colonic polyps K57.30, Diverticulosis of large intestine without perforation or abscess without bleeding --- Technical --- K63.5, Polyp of colon Z86.010, Personal history of colonic polyps K57.30, Diverticulosis of large intestine without perforation or abscess without bleeding CPT copyright 2019 [employer]. All rights reserved. The codes documented in this report are preliminary and upon ic design engineer review may be revised to meet current compliance requirements. Atif Coppola MD 04/11/2021 3:37:40 PM This report has been signed electronically. Number of Addenda: 0 Note Initiated On: 04/11/2021 3:04 PM [facility] 04/11/2021 3:04 PM STATISTICAL CLERK ADVERTISING Atif Coppola MD GI PROCEDURE ORDERAB LES Performing Organization Address City/[facility]/ZIP Co de Phone Number [facility] * HPV DETECTION HIGH RISK TRIPP (03/22/2020 1:48 PM CDT) High Risk Human Papilloma Result Not Detected Not Detected 03/24/2020 3:03 PM CDT [facility] High Risk Human Papilloma Interp 03/24/2020 3:03 PM CDT [facility] Comment:High Risk Human Lokes[place] lloma Virus was Not Detected. Pathology/Cytolo gy MISCELLANEOUS SAMPLES / Unknown 03/22/2020 1:48 PM CDT 03/23/2020 12:17 PM CDT Narrative [facility] - 03/24/2020 3:03 PM CDT [...] - MICROBIOLOGY O RDERABLES Performing Organization Address City/[facility]/ZIP Co de Phone Number [facility] [address] [phone] * MAMMOGRAM (10/28/2018 6:28 AM CDT) Anatomical Region Laterality Modality Other Narrative 10/28/2018 6:28 AM CDT Ordered by an unspecified provider. Scanned Document SCANNING ONLY * (ABNORMAL) BASIC METABOLIC PANEL (CALCIUM TOTAL) (08/27/2018 12:21 PM CDT) Pathologist [facility] Glucose 102 74 - 106 mg/dL 08/27/2018 1:17 PM CDT [facility] Sodium 136 136 - 145 mmol/L 08/27/2018 1:17 PM CDT [facility] Potassium 4.6 3.5 - 5.1 mmol/L 08/27/2018 1:17 PM CDT [facility] Chloride 104 98 - 107 mmol/L 08/27/2018 1:17 PM CDT [facility] CO2 26 22 - 31 mmol/L 08/27/2018 1:17 PM CDT [facility] Calcium 9.1 8.5 - 10.1 mg/dL 08/27/2018 1:17 PM CDT [facility] Anion Gap 6(L) 8 - 16 mmol/L 08/27/2018 1:17 PM CDT [facility] BUN 29(H) 7 - 21 mg/dL 08/27/2018 1:17 PM CDT [facility] Creatinine 0.99 0.50 - 1.30 mg/dL 08/27/2018 1:17 PM CDT [facility] eGFR by MDRD 58(L) >60 mL/min/1.7 3m2 08/27/2018 1:17 PM CDT [facility] eGFR by MDRD >60 >60 mL/min/1.7 3m2 08/27/2018 1:17 PM CDT [facility] Blood BLOOD SPECIMEN / Unknown Lab Venipuncture / Unknown 08/27/2018 12:21 PM CDT 08/27/2018 12:22 PM CDT Latasha Wells MD LAB - CHEMISTRY OR DERABLES [facility] [address] [place] [address] * HEPATITIS C ANTIBODY (01/17/2014 6:10 AM CDT) Pathologist [facility] HCV Antibody Screen Non Reactive Non Reactive 01/17/2014 7:49 AM CDT [facility] Blood BLOOD SPECIMEN / Unknown Lab Venipuncture / Unknown 01/17/2014 6:10 AM CDT 01/17/2014 6:14 AM CDT Narrative [facility] - 01/17/2014 7:49 AM CDT Nonreactive - Antibodies to HCV were not detected, result does not exclude early acute HCV infection. Zaki Lewis MD LAB - CHEMISTRY TRICIA CUMMINGS [facility] [address] [place] [address] * HIV-1 HIV-2 ANTIBODY RAPID (01/13/2014 2:40 PM CDT) HIV-1/HIV-2 Rapid Antibody Non Reactive Non Reactive 01/13/2014 3:47 PM CDT [facility] Blood BLOOD SPECIMEN / Unknown Lab Venipuncture / Unknown 01/13/2014 2:40 PM CDT 01/13/2014 3:10 PM CDT Jas Peters MD LAB - CHEMISTR Y ORDERABLES Performing Organization Address City/[facility]/ZIP Co de Phone Number [facility] [address] [place] [address] from Last 3 Months or Most Recently [...] 11:36 AM 01/13/2014 11:38 AM Care Teams Cardiac Nurse Practitioner Relationship Specialty Start Date End Date Daniel Shrestha DO PCP - General Internal Medicine 12/09/16 Lynnette Leslie, RN Helpdesk Specialist 10/20/13
--- OUTSIDE RECORDS SUMMARY | 2024-08-04 16:18 | XMS_ITS | Encounter Summary ---
Author Organization [facility] Care Team Providers Care Business Administration Instructor Name Role Phone Haim Saldivar MD Primary Care Provider [phone] Daniel Shrestha DO Primary Care Provider [phone] Encounter Details Date Type Department Care Team (Latest Contact Info) Description 10/08/2016 Orders Only [facility] ProviderTana MD [address] [place] [address] Social History Tobacco Use Types Packs/Day Years Used Date Smoking Tobacco: Never Assessed Comments Unknown Sex and Gender Information Value Date Recorded Sex Assigned at Not on file Legal Sex Female 2:34 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 Historical Provider Final Res ult documented in this encounter Visit Diagnoses Not on filedocumented in this encounter Care Teams Business Administration Instructor Relationship Specialty Start Date End Date Haim Saldivar MD [address] [place] [address] PCP - General 10/02/16 10/25/18 Daniel Shrestha DO [address] [place] [address] PCP - General Internal Medicine 10/26/18 documented as of this encounter
--- OUTSIDE RECORDS SUMMARY | 2024-08-04 16:18 | XMS_ITS | Data Portability ---
Author Organization [facility] [place] Address [address] [place] [address] Care Team Providers Care Test Engine Mechanic Name Role Phone ASHLEY CAVANAUGH Primary Care Provider Assessment Encounter Date Assessment Date Assessment LastModified by Organization Details LastModified Time 01/15/2023 01/15/2023 Annual gynecological exam performed. Patient will come back in a year unless there are new symptoms. [email or web address] Not available 01/15/2023 10:01:24 Plan of Treatment Reminders Order Date Submit Date Provider Last Modified By Organization Details Last Modified Time Details Appointments None recorded. Lab hbcab (hepatitis B core Ab) igm, serum 2022 023 [facility] (Lab), [address], [place], [address], 3 01:12:27 HBsAg (hepatitis B surface Ag), serum 2022 023 [facility] (Lab), [address], [place], [address], 3 01:12:26 hepatitis C virus Ab, serum 2022 023 [facility] (Lab), [address], [place], [address], 3 01:12:25 unlisted lab - HIV 1/2 antigen/ant ibody, reflex confirmatio n 2022 023 [facility] (Lab), [address] [place], [address], 3 01:12:26 RPR (rapid plasma reagin), serum 2022 023 [facility] (Lab), [address], [place], [address], 3 01:12:26 Referral None recorded. Procedures None recorded. Surgeries None recorded. Imaging MAMMO, screening, digital, bilateral 2023 024 [facility] (Imaging), [address] [place] [address] [place] [address], [phone], 5 16:18:08 DEXA, axial skeleton + vertebral fracture assessment 2023 024 [facility] (Imaging), [address] [place] [address] [place] [address], [id number], 4 15:01:01 MAMMO, screening, digital, bilateral [address] (Imaging), [facility] [address] [place] [address], [phone], 4 16:45:11 Medication Orders None recorded. Patient TargetsNo targets recorded. Patient InstructionsNo instructions recorded. Reason for Referral None Reported. Results Created Date Observation Date Name Description Value Unit Range Abnormal Flag Note LastModifiedBy Organization Detail LastModifiedTime 01/16/20 23 01/15/2023 HEPAT ITIS C ANTIB VAUGHN SCREE N, REFLE X TO CONFI RMATI ON hepatitis C antibody Non-re active non-re active Antib odies to HCV Not Detec cliff, does not exclu de the possi bilit y of expos ure to HCV. Not Available [facility] (Lab) [address], [place], [address], 01/18/2023 01:12:25 01/16/20 23 01/15/2023 HIV 1/2 ANTIG EN/AN TIBOD Y, REFLE X CONFI RMATI ON HIV antigen/anti body Nonrea ctive nonrea ctive HIV-1 antig en and HIV-1 /HIV- 2 antib odies were not detec cliff. No labor atory evide nce of HIV infec tion. Not Available [facility] (Lab) [address] [facility], [place], [address], 01/18/2023 01:12:26 01/16/20 23 01/15/2023 HEPAT ITIS B SURFA CE ANTIG EN hepatitis B surface antigen Non-re active non-re active This assay was perfo rmed using [employer] ratio n reage nts and test kits. Value s obtai jeevan with other assay metho ds or kits canno t be used inter betts eably . Not Available [facility] (Lab) [address] [facility], [place], [address], 01/18/2023 01:12:26 01/16/20 23 01/15/2023 RPR SCREE N/REF ANN TITER /FTA RPR screen Nonrea ctive nonrea ctive Not Available [facility] (Lab) [address] [facility], [place], [address], 01/18/2023 01:12:26 01/16/20 23 01/15/2023 HEPAT ITIS B CORE, IGM hepatitis B core IgM antibody Negati ve negati ve Not Available [facility] (Lab) [address] [facility], [place], [address], 01/18/2023 01:12:27 01/16/20 23 01/15/2023 IMAGE GUIDE D PAP AND HPV REGAR DLESS image guided Pap, HPV regardless of Pap result SEE RESULT S BELOW abnormal CASE REPOR T: Cytol ogy Gynec ologi derick Repor t Case: [id number] Autho joselito g Provi faisal: Marilyn Hudson NP Colle cted: 01/15 1510 Order ing Locat ion: [place] Patho [place] Recei kun: 01/16 0937 First Scree n: Ender Christina huff Speci men: Scree danitza Pap - Image d, Cervi x STATE MENT OF ADEQU ACY: Satis facto ry for evalu ation Trans forma tion zone compo nent prese nt FINAL DIAGN OSIS: Negat benjamin for Intra epith elial Lesio n or Vladvenus anil (NIL) . Elect jalendamari barrientos d by Ebervalentin huff Christina on 2022 at 7:58 PM ----- ----- ----- ----- ----- ----- ----- ----- ----- ----- ----- ----- ----- ----- ----- ----- ----- ---- HPV RESUL TS: HPV mRNA E6/E7 : Posit benjamin - HPV mRNA Detec cliff HPV GENOT YPE 16 (NAHUM) : Not Detec cliff HPV GENOT YPE 18/45 (NAHUM) : Not Detec cliff NOTE: This high risk HPV mRNA assay detec ts fourt een high- risk HPV types (16, 18, 31, 33, 35, 39, 45, 51, 52, 56, 58, 59, 66, 68) witho ut diffe renti ation . This assay can diffe renti ate HPV 16 from HPV 18/45 , but does not diffe renti ate betwe en HPV 18 and HPV 45. A negat benjamin HPV 16, 18/45 genot ype assay resul t does not exclu de the possi bilit y of cytol ogic abnor malit ies or of futur e or under lying MURRAY 1, MURRAY 3 or cance r. COMME NT: This speci men was revie wed by a Cytot echno logis t and/o r Patho logis t (as indic ated in this repor t) after evalu ation using the Thinp rep Imagi ng Syste m. CLINI DERICK INFOR MATIO N: Menst rual Statu s: LMP (if appli cable ): Clini derick Histo ry/Pr eviou s Pap: Type of Neopl maranda (if appli cable ): Edwari jaziel t Clini derick Findi ngs: Other Histo ry: Hormo herlinda (if appli cable ): PAP EDUCA GUSTAVO L NOTE: The Pap Test is a scree danitza test with an inher ent false negat benjamin rate. Liqui d-bas ed sampl ing may decre ase, but will not elimi donavon, false negat benjamin resul ts. A negat benjamin resul t does not precl ude the prese nce and/o r devel opmen t of disea se, since the prese nce of abnor mal cells in the sampl e depen ds on the locat ion of the lesio n and sampl ing techn ique. Damaris nued regul ar scree danitza is the best metho d of cance r preve ntion . If repor cliff cytol ogic findi ng do not corre late with physi derick and/o r histo rical findi ngs, furth er inves tigat ion is recom lizzie d, as clini jass arevalo nted. Not Available [facility] (Lab) [address] [facility], [place], [address], 01/20/2023 15:24:33 01/16/20 23 01/15/2023 CT/GC (NAHUM) , THINP REP VIAL chlamydia trachomatis, PCR Negati ve negati ve Not Available [facility] (Lab) [address] [facility], [place], [address], 01/20/2023 15:24:33 01/16/20 23 01/15/2023 CT/GC (NAHUM) , THINP REP VIAL neisseria gonorrhoeae, PCR Negati ve negati ve Not Available [facility] (Lab) [address] [facility], [place], [address], 01/20/2023 15:24:33 01/16/20 23 01/15/2023 TRICH OMONA S VAGIN ABDULAZIZ (RRNA ) trichomonas vaginalis ribosomal RNA (rrna) Negati ve negati ve Not Available [facility] (Lab) [address] [facility], [place], [address], 01/20/2023 15:24:34 01/19/20 24 01/19/2024 IMAGE GUIDE D PAP AND HPV REGAR DLESS image guided Pap, HPV regardless of Pap result SEE RESULT S BELOW abnormal CASE REPOR T: Cytol ogy Gynec ologi derick Repor t Case: [id number] Autho joselito bullock Provi faisal: Briana Foss MD Colle cted: 01/18 1013 Order ing Locat ion: [place] Patho [place] Recei kun: 01/19 0816 First Zamzam n: Christina Bhagat een: Adalberto Posadas Speci men: Zamzam bosch Pap - Image d, Cervi x STATE MENT OF ADEQU ACY: Satis facto ry for evalu ation Trans forma tion zone compo nent prese nt ----- ----- ----- ----- ----- ----- ----- ----- ----- ----- ----- ----- ----- ----- ----- ----- ----- ---- FINAL DIAGN OSIS: Negat benjamin for Intra epith elial Susan erickson or Domenico ma (NIL) . Elect walter barrientos d by Adalberto Posadas on 024 at 8:59 AM ----- ----- ----- ----- ----- ----- ----- ----- ----- ----- ----- ----- ----- ----- ----- ----- ----- ---- HPV RESUL TS: HPV mRNA E6/E7 : Posit benjamin - HPV mRNA Detec cliff HPV GENOT YPE 16 (NAHUM) : Not Detec cliff HPV GENOT YPE 18/45 (NAHUM) : Not Detec cliff NOTE: This high risk HPV mRNA assay detec ts fourt een high- risk HPV types (16, 18, 31, 33, 35, 39, 45, 51, 52, 56, 58, 59, 66, 68) witho ut diffe renti ation . This assay can diffe renti ate HPV 16 from HPV 18/45 , but does not diffe renti ate betwe en HPV 18 and HPV 45. A negat benjamin HPV 16, 18/45 genot ype assay resul t does not exclu de the possi bilit y of cytol ogic abnor malit ies or of futur e or under lying MURRAY 1, MURRAY 3 or cance r. COMME NT: This speci men was revie wed by a Cytot echno logis t and/o r Patho logis t (as indic ated in this repor t) after evalu ation using the Thinp rep Imagi ng Syste m. CLINI DERICK INFOR MATIO N: Menst rual Statu s: LMP (if appli cable ): Clini derick Histo ry/Pr eviou s Pap: Type of Neopl maranda (if appli cable ): Signi fican t Clini derick Findi ngs: Other Histo ry: Hormo herlinda (if appli cable ): PAP EDUCA GUSTAVO L NOTE: The Pap Test is a scree danitza test with an inher ent false negat benjamin rate. Liqui d-bas ed sampl ing may decre ase, but will not elimi donavon, false negat benjamin resul ts. A negat benjamin resul t does not precl ude the prese nce and/o r devel opmen t of disea se, since the prese nce of abnor mal cells in the sampl e depen ds on the locat ion of the lesio n and sampl ing techn ique. Damaris nued regul ar scree danitza is the best metho d of cance r preve ntion . If repor cliff cytol ogic findi ng do not corre late with physi derick and/o r histo rical findi ngs, furth er inves tigat ion is recom lizzie d, as clini jass arevalo nted. Not Available [facility] (Lab) [address], [place], [address], 01/27/2024 12:09:51 02/04/20 24 02/04/2024 DEXA, axial skele ton + verte bral fract ure asses sment No observ ation record ed. [facility] [address] [facility] [address], [place], [address], 02/05/2024 11:00:11 08/05/19 25 08/04/2024 MAMMO , scree danitza, digit al, bilat eral No observ ation record ed. [facility] [address] [facility] [address], [place], [address], 08/04/2024 16:18:08 Result Notes None recorded. Procedures Surgical History Date Name Laterality Status Provider Name and Address Organization Details Recorded Time 05/26/19 20 completed [facility] 01/19/2024 09:50:27 05/26/19 20 Date of Last Mammogram completed [facility] 01/19/2024 09:50:27 05/26/19 20 Date of Last Colonoscopy completed [facility] 01/19/2024 09:50:27 05/26/19 20 Most Recent Bone Density completed [facility] 01/19/2024 09:50:27 05/26/19 19 Date of Last Pap Smear completed [facility] 01/15/2023 10:03:20 12/25/19 10 excision of bilateral fallopian tubes and ovaries completed JONNATHAN Calixto [address], [place], [address], [facility] 01/15/2023 10:35:42 tonsilectomy/glenny noids completed [facility] 01/15/2023 10:05:54 Endometrial Ablation completed Yanelibenjamin Borrero [facility] 01/15/2023 10:06:06 Partial Hysterectomy completed [facility] 01/19/2024 09:50:47 Breast Biopsy completed [facility] 01/19/2024 09:50:47 Caesarean Section completed [facility] 01/19/2024 09:50:47 Colonoscopy completed [facility] 01/19/2024 09:50:47 Imaging Results Imaging Date Name Status LastModified by Organiz ation Details LastModified Time 02/04/2024 DEXA, axial skeleton + vertebral fracture assessment completed [address], [address], 02/05/2024 11:00:11 08/04/2024 MAMMO, screening, digital, bilateral active [address], [place], [address], 08/04/2024 16:18:08 Procedure Notes None recorded. Medical Equipment None Reported. Allergies No known drug allergies Medications Name Sig Start Date Stop Date Status Note LastModified by Organization Details LastModified Time acetic acid 2 % ear solution INSTILL 4 DROPS INTO LEFT EAR THREE TIMES A DAY FOR 7 DAYS 01/15 completed Not Available Not Available Not Available doxycycline hyclate 100 mg capsule TAKE 1 CAPSULE BY MOUTH EVERY DAY 01/18 completed Not Available Not Available Not Available clindamycin HCl 300 mg capsule 01/15 completed Not Available Not Available Not Available albuterol sulfate 2.5 mg/3 mL (0.083 %) solution for nebulizatio n 2.5 MG (3 ML) INHALED EVERY 4 - 6 HOURS NEEDED FOR SHORTNESS OF BREATH OR WHEEZING active Not Available Not Available No t Available triamcinolo ne acetonide 0.5 % topical cream APPLY TO AFFECTED AREA TWICE A DAY active Not Available Not Available No t Available azithromyci n 250 mg tablet TAKE 2 TABLETS BY MOUTH TODAY, THEN TAKE 1 TABLET DAILY FOR 4 DAYS 01/15 completed Not Available Not Available Not Available ofloxacin 0.3 % eye drops INSTILL 1 DROP INTO EACH EYE 4 TIMES A DAY FOR 7 DAYS 01/18 completed Not Available Not Available Not Available phenazopyri dine 200 mg tablet TAKE 1 TAB BY MOUTH 3 TIMES A DAY NEEDED FOR PAIN FOR 2 DAYS TAKE AFTER YOU HAVE CONSUMED A MEAL active Not Available Not Available No t Available prednisone 20 mg tablet PLEASE SEE ATTACHED FOR DETAILED DIRECTION S 01/15 completed Not Available Not Available Not Available ciprofloxac in 500 mg tablet TAKE 1 TABLET BY MOUTH EVERY 12 HOURS 01/18 completed Not Available Not Available Not Available prednisone 50 mg tablet 50 MG ORALLY DAILY FOR 5 DAYS 01/18 completed Not Available Not Available Not Available epinephrine 0.3 mg/0.3 mL injection, auto-inject or DIRECTED INTRAMUSC ULARLY ONCE 1 DAY active Not Available Not Available No t Available albuterol sulfate HFA 90 mcg/actuati on aerosol inhaler INHALE 2 PUFFS BY MOUTH EVERY 4 TO 6 HOURS NEEDED FOR WHEEZING 01/15 completed Not Available Not Available Not Available lisinopril 40 mg tablet active Not Available Not Available Not Available cefdinir 300 mg capsule TAKE 1 CAPSULE BY MOUTH EVERY 12 HOURS 01/15 completed Not Available Not Available Not Available doxycycline hyclate 100 mg tablet 100 MG ORALLY TWICE A DAY FOR 7 DAYS 01/18 completed Not Available Not Available Not Available Vitamin D3 25 mcg (1,000 unit) tablet active Not Available Not Available Not Available nitrofurant oin monohydrate /macrocryst als 100 mg capsule TAKE 1 CAP BY MOUTH EVERY 12 HOURS FOR 5 DAYS MUST ADMINISTE R WITH A MEAL/FOOD 01/15 completed Not Available Not Available Not Available Tylenol Extra Strength active Not Available Not Available Not Available Flaxseed (Linseed) active Not Available Not Available No t Available Vision Plus Lutein active Not Available Not Available Not Available Calcium Complete 01/15 completed Not Available Not Available Not Available CoQ10 SG 100 active Not Available Not Available Not Available coconut oil 1,000 mg capsule active Not Available Not Available Not Available Myrbetriq 25 mg tablet,exte nded release active Not Available Not Available Not Available Allergy Relief (fluticason e) 01/15 completed Not Available Not Available Not Available ABDEK Multivitami n 01/15 completed Not Available Not Available Not Available BinaxNOW COVID-19 Ag Self Test kit TEST DIRECTED TODAY 01/15 completed Not Available Not Available Not Available turmeric 100 mg-mu 150 mg-olive 50 mg-oreg 150 mg-capryl capsule active Not Available Not Available Not Available Paxlovid 300 mg (150 mg x 2)-100 mg tablets in a dose pack TAKE 2 TABLETS (NIRMATRE LVIR) AND TAKE 1 TABLET (RITONAVI R) BY MOUTH TWICE A DAY FOR 5 DAYS 01/15 completed Not Available Not Available Not Available Vitals Date Recorded Body height Body mass index (BMI) Body weight Systolic blood pressure Diastolic blood pressure Provider Name and Address Organization Details Last Updated DateTime 01/15/2023 157.48 cm 74.1 kg/m2 738740.3 5 g 147 mm[Hg] 78 mm[Hg] Yaneli Borrero [facility] 3 10:01:48 Date Recorded Body height Body mass index (BMI) Body weight Systolic blood pressure Diastolic blood pressure Provider Name and Address Organization Details Last Updated DateTime 01/19/2024 157.48 cm 72.9 kg/m2 273875.9 2 g 145 mm[Hg] 81 mm[Hg] Candy Whaley [facility] 4 09:50:17 Social History Question Answer Notes LastModified by Organizat ion Details LastModified Time Tobacco Smoking Status Never Smoker Yaneli Borrero [facility] 01/15/2023 10:05:37 What Is Your Level Of Alcohol Consumption? None Information not available 01/15/2023 Are You Blind Or Do You Have Difficulty Seeing? No Information n ot available 01/15/2023 What Is Your Level Of Caffeine Consumption? Moderate Information not available 01/19/2024 In The 14 Days Before Symptom Onset, Have You Had Close Contact With A Laboratory-confirm ed COVID-19 While That Case Was Ill? No Information n ot available 01/19/2024 In The 14 Days Before Symptom Onset, Have You Had Close Contact With A Person Who Is Under Investigation For COVID-19 While That Person Was Ill? No Information not available 01/19/2024 Have You Been To An Area Known To Be High Risk For COVID-19? No Information not available 01/19/2024 Are You Deaf Or Do You Have Serious Difficulty Hearing? No Information not available 01/15/2023 What Type Of Diet Are You Following? REGULAR Information n ot available 01/19/2024 What Is The Highest Grade Or Level Of School You Have Completed Or The Highest Degree You Have Received? BG21210-9 Information not available 01/19/2024 What Is Your Occupation? Disabled Information not available 01/19/2024 Are There Any Guns Present In Your Home? No Information not available 01/19/2024 Do You Use Protection During Sex? No Information not available 01/19/2024 Do You Use Your Seat Belt Or Car Seat Routinely? Yes Information not available 01/19/2024 Do You Have Smoke And Carbon Monoxide Detectors In Your Home? Yes Information not available 01/19/2024 How Much Tobacco Do You Smoke? No Information not available 01/19/2024 Do You Feel Stressed (tense, Restless, Nervous, Or Anxious, Or Unable To Sleep At Night)? [id number] Information not available 01/19/2024 Do You Use Any Illicit Or Recreational Drugs? No Information not available 01/19/2024 Do You Use Sunscreen Routinely? Yes Information not available 01/19/2024 Have You Used IV Drugs? No Information not available 01/19/2024 Sex: Unknown Functional Status Question Answer Note LastModified by Organizat ion Details LastModified Time Do you have difficulty walking or climbing stairs? No Information not available 01/15/2023 Are you able to walk? YESWOREST Information not available 01/15/2023 Are you able to care for yourself? Yes Information not available 01/15/2023 Do you have difficulty dressing or bathing? No Information not available 01/15/2023 What is your exercise level? None Information not available 01/19/2024 Mental Status None recorded. Family History Relationship Description Onset Age of this Age Resolved Age Notes LastModified by Organization Details LastModified Time Mother Asthma vschroedter Not availabl e 01/15/2023 10:01:52 Mother Disorder of lung vschroedter Not available 12/25 10:01:52 Mother Heart disease vschroedter Not available 12/25 10:01:52 Maternal Grandmother Osteoporosis vschroedter Not availab le 01/15/2023 10:01:52 Daughter Anxiety disorder vschroedter Not available 12/25 10:01:52 Brother Multiple sclerosis vschroedter Not available 12/25 10:01:52 Maternal Grandfather Asthma vschroedter Not available 10:01:52 Father Anxiety disorder vschroedter Not available 12/25 10:01:52 Father Depressive disorder vschroedter Not available 12/25 10:01:52 Father Mental disorder vschroedter Not available 12/25 10:01:52 Medical History Condition Response Allergies (Food, seasonal, environmental ) Y Other N Breast Cancer N Drug/Latex Allergies/Reactions N Blood Transfusion N Dermatologic Disorders N Lung Disease N Defects or Inherited Disease Y Breast Problem Y Gestational Diabetes N Hematologic disorders N Anesthesia Complications N History of STI N Deep Vein Thrombosis N Polycystic ovary syndrome N Anxiety Disorder N Autoimmune disease N Arthritis Y Infertility N Polyps N Acid Reflux (GERD) N History of abnormal pap Y Cancer Y Stroke N Varicosities N Neurologic/Epilepsy N Endometriosis Y High Cholesterol N Headaches N Fibromyalgia N Kidney Disease N Heart Problems Y Kidney or Bladder Problems Y Thyroid Problems N GI Problems N Eating Disorder N Anemia N Art (IVF or FET) N Psychiatric Illness N Ovarian Cancer Y Diabetes N Pulmonary (TB, Asthma) N Hepatitis/Liver Disease Y No Past Medical History N Eczema N Urinary Tract Infection Y Abuse/Domestic Violence N Asthma Y Trauma/Violence N Depression/ depression N Heart Disease N Pre-Eclampsia N Hypertension Y Osteoporosis Y Thrombophilias N Gynecological History Statement/Question Response Date of Last Mammogram 05/26/2019 Date of LMP 06/14/2009 N Was last menstrual period normal N STIs/STDs N Date of Last Colonoscopy 05/26/2019 On BCP's at Conception? N HPV Vaccine N Duration of Flow (days) 9 Current Control Method Hysterectom y Age at First Child 36 Frequency of Cycle (Q days) 9 Most Recent Bone Density 05/26/2019 Sexually Active? N Date of DEXA bone scan 05/26/2019 Age of first menstrual cycle 10 Date of Last Pap Smear 05/26/2018 Sexual Problems? N LMP Approximate 05/26/2019 N 05/26/2013 Obstetrics History GPAL:G 2 P 0 0 1 1 Type Value Spontaneous 1 Living 1 Total 2 Past Encounters Encounter ID Performer Location Encounter Start Date Encounter Closed Date Diagnosis/Indication Diagnosis SNOMED-CT Code Diagnosis ICD10 Code Diagnosis Note [id number] JONNATHAN Calixto [place] [address] [address] 01/15/2023 09:16:36 01/15/2023 11:05:49 Gynecologic examination [id number] Z01.419 Take Calcium with Vitamin D 12-1500mg daily. Do monthly self breast exams. It is advised to get annual flu shot in the fall and she could obtain at [facility] or [facility] care clinic. If you haven't received the Tdap vaccine in the last 10 years you should obtain one as well. Have mammogram yearly, bone density every 2-3 years and colonoscop y every 5-10 years depending on findings and history. Engage in daily exercise of low impact aerobic exercise 45-60 minutes 4-5 times weekly. Avoid tobacco and illicit drugs as well as using moderation with alcohol intake less than 1-2 8 oz beverages daily. This lifestyle behavior pattern will lead to less health conditions and longer life span. If BMI greater than 25 weight watchers or dietary consult advised. Questions have been answered. Patient appears to understand instructio ns, but if you have any further questions call or respond to this email WWEhx of abnormal pap around 2011, no procedures required per ptlast pap 2019 - normalpap updated todaySTI testing added to papblood STI panel orderedmam mogram order givencolon oscopy UTD - done last in ex UTD - due for repeat 2023geneti c testing discussed, handout given to patientUTD with PCP for routine labsBP elevated - precaution s reviewed, encouraged f/u with PCP Screening for malignant neoplasm of breast 943274215 Z12.39 Venereal d isease screening 699162905 Z11.3 Sexually t ransmitted infectious disease [id number] A64 [id number] LUIGI YOUNGBLOOD MD [place] [address] [address] 01/19/2024 09:26:21 01/19/2024 10:44:33 Screening mammography 99773244 Z12.31 - due for mammogram, order sent Screening for osteoporosis 547327240 Z13.820 - hx of osteopenia 2020, per radiology request, recommend repeat DEXA scan Screening for malignant neoplasm of cervix 917135217 Z12.4 - hx of HPV positive pap, NILM 2022- repeat pap obtained today- will follow up on results as available Health Concerns Section Related Observation LastModified by Organization Detai ls LastModified Time None Recorded Concern Status LastModified by Organization Details LastModified Time None Recorded Advance Directives Directive None Recorded Payers Encounter Date Sequence Insurance Name Policy Number Policy Roberts Covered Member ID Roberts Member ID Guarantor Name 01/15/2023 1 [facility] (MEDICARE REPLACEMENT/A DVANTAGE - PPO) [id number] Amanda Martinez [id number] Amanda Juan 01/19/2024 1 [facility] (MEDICARE REPLACEMENT/A DVANTAGE - PPO) [id number] Amanda Juan [id number] Amanda Martinez Notes Date Note Type Note Provider Name and Address Organization Details Recorded Time 01/15/2023 text/html 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 Post-MenopausalRe ported bypatient.[place] Symptoms:no menopausal symptoms; normal vaginal lubrication Vaginal Bleeding:history of menopause having occurred; no history of post menopausal bleeding Urinary Symptoms:no hematuria; no incontinence; no nocturia; no urinary frequency Vulva:no genital lesion; no vulvar atrophy Vagina:normal vaginal discharge; no vaginal atrophy Breast:no breast lump; no nipple discharge; no breast pain Sexual Complaints:no sexual complaints Psychological Symptoms:no depression; no anxiety Preventive Measures:encourag e regular mammograms starting age 40; encourage self breast examination; encourage regular exercise; encourage no tobacco use; needs to schedule mammogram; history of recent colonoscopyNotes: hx of stage 1 borderline malignant ovarian tumor in 2009, BSO in 2009. Has been cleared by oncology per patient. Never had genetic testing done. JONNATHAN Calixto [address], [place], [address], [facility] 01/15/2023 10:41:56 01/19/2024 text/html Patient presents for repeat pap smear. Hx of HPV+ pap last year, NILM at that time. Repeat pap x1 year recommended. She also reports a hx of osteopenia on DEXA in 2020, has not had repeat imaging since then. No hx of fractures. She is also due for a mammogram. LUIGI YOUNGBLOOD MD [address], [place], [address], [facility] 01/19/2024 10:29:13 OBGyn Episode Ob Episode Information Episode Created Date Number of Fetuses Patient Bloodtype Patient rh Status Prepregnancy Weight lbs Domestic Partner Domestic Partner Phone Father Name Internet Manager Status 01/16/20 23 1 CLOSED Fetus Data First Name Last Name Admitted to NICU Weight (g) Sex Living Outcome Pediatric Complications Fetus ID Race Codes Race Delivery Type [id number] F Full Term [id number] Primary Leno Calculation Initial Leno Date Initial Exam Date Initial Exam Provider Initial Ultrasound Date Last Menstrual Period Date Ultra Sound Weeks Gestation 0 Eighteen To Twenty Week Leno Update Ultra Sound Date Fundal Height At Umbil Quickening Date Ultra Sound Latest Weeks Gestation Final Leno Confirmed By Final Leno Confirmed Date Final Leno Date Ultra Sound Latest Days Gestation 0 0 Menstrual History Last Menstrual Date Menses Monthly On Bcp Conception Prior Menses Frequency Hcg Plus Date Menarche Onset Age Delivery Information Delivery Date Delivery Type Labor Anesthesia Weeks Gestation Incision Type Labor Labor Length Hrs Delivered By Post Complications Tubal Sterilization Discharge Date Comments 7 38 Discharge Information Feeding Method Contraceptive Method Maternal HG B and HCT Levels
--- OUTSIDE RECORDS SUMMARY | 2024-08-04 16:18 | XMS_ITS | Patient Health Summary ---
Author Organization [facility] [employer] Address [address] [place] [address] Care Team Providers Care Inside Finisher Name Role Phone Lynnette Leslie RN Unavailable [phone] Daniel Shrestha DO Primary Care Provider [phone] Note from [facility],non-owned Affiliates and Associated Physician Practices is amultiple site organization consisting of ambulatory clinics and hospital sitesin [place], [place], [place] and [place]. This disclosure is being madepursuant to the Care Everywhere program and may not contain all information available regarding this patient. Last updated 18.[facility] Allergies * Allergy(Urticaria) -Medium Criticality * Contrast-Iodinated Agents For Ct/Other(Urticaria,Shortness of Breath) -High Criticality * Iodine(Urticaria,Anaphylaxis) -High Criticality * Egkvfmhk-Kzwmdnqghu-Fkuyasikm(Rash) -Medium Criticality * Penicillins(Urticaria,Anaphylaxis) -High Criticality * Shellfish(Urticaria,Anaphylaxis) -High Criticality * Sulfa Drugs(Urticaria,Anaphylaxis) -High Criticality * Tramadol(Urticaria) -High Criticality * Shellfish Allergy,Inactive * Shellfish-Derived Products,Inactive * Tramadol Hcl(Rash) -Medium Criticality,Inactive Medications * Be aware that medications may not be up to date on this document. Alwaysverify current medications with the patient. * multivitamin daily (THERAGRAN) tablet Take 1 (one) tablet by mouth daily with food * Lecithin 400 MG CAPS(Started 04/16/2010) Take by mouth as needed * Flaxseed, Linseed, 1000 MG CAPS Take 1 Cap by mouth once daily. * coenzyme Q10 (COQ10) 100 MG capsule Take 100 (one hundred) mg by mouth once daily * Calcium Carbonate-Vitamin D (CALCIUM + D PO) Take 1 tablet by mouth once daily * Other * Selenium 200 MCG CAPS Take 1 Cap by mouth once daily. * fluticasone propionate (FLONASE) 50 MCG/ACT nasal spray(Started 02/10/2015) [place] 2 (two) sprays into each nostril once daily 3 refills left * vitamin E 400 UNIT/15ML liquid Take 400 Units by mouth * magnesium 500 MG tablet Take 1 (one) tablet by mouth once daily * montelukast (SINGULAIR) 10 MG tablet Take 1 (one) tablet by mouth at bedtime * Nutritional Supplements (EQUATE PLUS PO) Take 1 tablet by mouth once daily * Cholecalciferol (VITAMIN D-3) 1000 UNITS Take 1 (one) capsule by mouth once daily * EPIPEN 0.3 MG/0.3ML auto-injector pen(Started 01/22/2018) USE DIRECTED. 1 refill left * insulin syringe-needle (B-D INS SYR ULTRAFINE 1CC/31G) 31G X 5/16 1 ML syringe(Started 01/22/2018) USE 1-2 SYRINGES EVERY OTHER DAY DIRECTED 1 refill left * lisinopril (PRINIVIL; ZESTRIL) 40 MG tablet Take 1 (one) tablet by mouth once daily * hydroCHLOROthiazide (HYDRODIURIL) 12.5 MG Take 25 mg by mouth once daily * PROAIR HFA 108 (90 Base) MCG/ACT inhaler(Started 02/05/2021) INHALE 2 PUFFS BY MOUTH EVERY 6 HOURS NEEDED 4 refills by 02/05/2022 * Turmeric (QC TUMERIC COMPLEX PO) Take 1 tablet by mouth once daily * Tetrahydrozoline HCl (VISION CLEAR OP) 1 Dose by Ophthalmic route as needed * Zinc 50 MG Take 1 tablet by mouth once daily * Folic Acid (FOLATE PO) Take 1 tablet by mouth once daily * meclizine (ANTIVERT) 25 MG tablet Take 25 mg by mouth 3 times daily as needed for Dizziness * BREO ELLIPTA 200-25 MCG/INH inhaler(Started 09/10/2021) INHALE 1 PUFF BY MOUTH ONCE DAILY 5 refills by 09/10/2022 * triamcinolone acetonide (Kenalog) 0.5 % cream(Started 05/14/2022) Apply to affected area 2 times daily 1 refill by 05/14/2023 Active Problems Problem Noted Date Diagnosed Date Increased endometrial stripe thickness SOB (shortness of breath) 08/01/2018 Low back pain 01/17/2015 Infectious mononucleosis 01/17/2014 Nausea with vomiting 01/15/2014 Abnormal LFTs 01/15/2014 Abdominal pain, RUQ (right upper quadrant) 01/13 Malaise and fatigue 01/13/2014 GI bleed 10/21/2013 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 SALGADO (dyspnea on exertion) 12/27/2010 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 Resolved Problems Problem Noted Date [...] Comments Blood Pressure 151/88 06/30/2024 9:55 AM DOCUMENTATION COORDINATOR Pulse 74 04/11/2021 3:45 PM DOCUMENTATION COORDINATOR Temperature 36.6 C (97.8 F) 06/02/2020 9:51 AM DOCUMENTATION COORDINATOR Respiratory Rate 14 04/11/2021 3:45 PM DOCUMENTATION COORDINATOR Oxygen Saturation 98% 04/11/2021 3:45 PM DOCUMENTATION COORDINATOR Inhaled Oxygen Concentration 21% 08/03/2018 2 :28 AM CDT Weight 184.6 kg (407 lb) 06/30/2024 9:49 AM DOCUMENTATION COORDINATOR Height 160 cm (5' 3 ) 06/30/2024 9:49 AM DOCUMENTATION COORDINATOR Body Mass Index 72.1 06/30/2024 9:49 AM DOCUMENTATION COORDINATOR Procedures * PATHOLOGY TISSUE EXAM (STL)(Performed 04/11/2021) Performed for Personal history of colonic polyps * ENDOSCOPY, COLON, SCREENING(Performed 04/11/2021) Performed for Hx of colonic polyps * [place] COLONOSCOPY,BIOPSY(Performed 04/11/2021) Performed for Personal history of colonic polyps * COLONOSCOPY SCREEN(Performed 04/11/2021) Performed for Personal history of colonic polyps * CARDIAC RHYTHM STRIP ORDER(Performed 06/07/2020) * PATHOLOGY TISSUE EXAM (STL)(Performed 06/02/2020) Performed for Diagnosis unknown * ENDOTRACHEAL TUBE NOTE(Performed 06/02/2020) * [place] HYSTEROSCOPY,W/ENDO BX(Performed 06/02/2020) Performed for Diagnosis unknown * SARS-COV-2 (COVID-19) IN HOUSE(Performed 05/31/2020) Performed for PCB (post coital bleeding) * IMAGING/RADIOLOGY/XRAY RESULTS ORDER(Performed 05/31/2020) * [place] SONO EXAM, TRANSVAGINAL(Performed 05/10/2020) Performed for PCB (post coital bleeding) * PAP IMAGE-GUIDED W HPV(Performed 03/22/2020) Performed for Well woman exam with routine gynecological exam * HPV DETECTION HIGH RISK TRIPP(Performed 03/22/2020) Performed for Well woman exam with routine gynecological exam * MAMMOGRAM(Performed 10/28/2018) * POLYSOMNOGRAPHY 4 OR MORE PARAMETERS WITH CPAP(Performed 09/22/2018) Performed for URBANO (obstructive sleep apnea) * COMPLETE PFT W/WO BRONCHODILATOR(Performed 09/09/2018) Performed for URBANO (obstructive sleep apnea) * BASIC METABOLIC PANEL (CALCIUM TOTAL)(Performed 08/27/2018) Performed for Elevated serum creatinine * GLUCOSE - POINT OF CARE(Performed 08/20/2018) * CT CHEST ABDOMEN PELVIS W CONT(Performed 08/20/2018) Performed for Malaise and fatigue * GLUCOSE - POINT OF CARE(Performed 08/20/2018) * GLUCOSE - POINT OF CARE(Performed 08/20/2018) * WBC COUNT(Performed 08/20/2018) Performed for SOB (shortness of breath) * BASIC METABOLIC PANEL (CALCIUM TOTAL)(Performed 08/20/2018) Performed for SOB (shortness of breath) * GLUCOSE - POINT OF CARE(Performed 08/20/2018) * NT-PRO BNP(Performed 08/20/2018) Performed for Malaise and fatigue * TSH REFLEX FREE T4(Performed 08/20/2018) Performed for Malaise and fatigue * HEMOGLOBIN A1C(Performed 08/20/2018) Performed for Malaise and fatigue * CANCER ANTIGEN (CA)125 BLOOD(Performed 08/20/2018) Performed for Malaise and fatigue * CANCER ANTIGEN (CA) 19-9(Performed 08/20/2018) Performed for Malaise and fatigue * CEA BLOOD(Performed 08/20/2018) Performed for Malaise and fatigue * PHOSPHORUS BLOOD(Performed 08/19/2018) * MAGNESIUM BLOOD(Performed 08/19/2018) * COMPREHENSIVE METABOLIC PANEL(Performed 08/19/2018) * CBC W AUTO DIFFERENTIAL(Performed 08/19/2018) * CARDIAC EKG ORDER(Performed 08/12/2018) * XR CHEST 2VW(Performed 08/11/2018) Performed for SOB (shortness of breath) * TROPONIN I(Performed 08/11/2018) * NT-PRO BNP(Performed 08/11/2018) * COMPREHENSIVE METABOLIC PANEL(Performed 08/11/2018) * CBC W AUTO DIFFERENTIAL(Performed 08/11/2018) * EKG 12-LEAD(Performed 08/11/2018) Performed for SOB (shortness of breath) * CARDIAC EKG ORDER(Performed 08/05/2018) * CARDIAC RHYTHM STRIP ORDER(Performed 08/05/2018) * GLUCOSE - POINT OF CARE(Performed 08/04/2018) * GLUCOSE - POINT OF CARE(Performed 08/04/2018) * ECHOCARDIOGRAM 2D WITH DOPPLER(Performed 08/04/2018) Performed for SOB (shortness of breath) * CBC W AUTO DIFFERENTIAL(Performed 08/04/2018) Performed for Leukocytosis, unspecified type * GLUCOSE - POINT OF CARE(Performed 08/03/2018) * GLUCOSE - POINT OF CARE(Performed 08/03/2018) * GLUCOSE - POINT OF CARE(Performed 08/03/2018) * VAS BILATERAL VENOUS DUPLEX LE(Performed 08/03/2018) Performed for Positive D dimer * GLUCOSE - POINT OF CARE(Performed 08/03/2018) * RENAL FUNCTION PANEL(Performed 08/03/2018) Performed for SOB (shortness of breath) * CBC W AUTO DIFFERENTIAL(Performed 08/03/2018) Performed for SOB (shortness of breath) * GLUCOSE - POINT OF CARE(Performed 08/02/2018) * GLUCOSE - POINT OF CARE(Performed 08/02/2018) * GLUCOSE - POINT OF CARE(Performed 08/02/2018) * CT ANGIO CHEST PULM EMBOLISM(Performed 08/02/2018) Performed for SOB (shortness of breath) * GLUCOSE - POINT OF CARE(Performed 08/02/2018) * HEMOGLOBIN A1C(Performed 08/02/2018) Performed for Hyperglycemia * MAGNESIUM BLOOD(Performed 08/02/2018) Performed for SOB (shortness of breath) * TSH REFLEX FREE T4(Performed 08/02/2018) Performed for SOB (shortness of breath) * NT-PRO BNP(Performed 08/02/2018) Performed for SOB (shortness of breath) * CBC W AUTO DIFFERENTIAL(Performed 08/02/2018) Performed for SOB (shortness of breath) * BASIC METABOLIC PANEL (CALCIUM TOTAL)(Performed 08/02/2018) Performed for SOB (shortness of breath) * TROPONIN I(Performed 08/02/2018) * GLUCOSE - POINT OF CARE(Performed 08/01/2018) * EKG 12-LEAD(Performed 08/01/2018) Performed for SOB (shortness of breath) * LACTIC ACID BLOOD(Performed 08/01/2018) * TROPONIN I(Performed 08/01/2018) * D-DIMER(Performed 08/01/2018) * INFLUENZA A+B ANTIGEN RAPID(Performed 08/01/2018) * START ED RT BRONCHODILATOR PROTOCOL(Performed 08/01/2018) * XR CHEST 2VW(Performed 08/01/2018) Performed for SOB (shortness of breath) * NT-PRO BNP(Performed 08/01/2018) * TROPONIN I(Performed 08/01/2018) * LACTIC ACID BLOOD(Performed 08/01/2018) * COMPREHENSIVE METABOLIC PANEL(Performed 08/01/2018) * CBC W AUTO DIFFERENTIAL(Performed 08/01/2018) * START ED RT BRONCHODILATOR PROTOCOL(Performed 08/01/2018) * INITIATE RT BRONCHODILATOR PROTOCOL(Performed 08/01/2018) * OXYGEN(Performed 08/01/2018) * CULTURE WOUND+GRAM STAIN(Performed 07/16/2018) * URINE MICROSCOPIC ONLY REFLEX TO CULTURE(Performed 07/16/2018) * URINALYSIS REFLEX MICROSCOPIC REFLEX CULTURE(Performed 07/16/2018) * CULTURE URINE(Performed 07/16/2018) * TYPE + SCREEN PANEL(Performed 07/16/2018) * COMPREHENSIVE METABOLIC PANEL(Performed 07/16/2018) * CBC W AUTO DIFFERENTIAL(Performed 07/16/2018) * COMPREHENSIVE METABOLIC PANEL(Performed 03/24/2017) Performed for Preop examination * CBC W AUTO DIFFERENTIAL(Performed 03/24/2017) Performed for Preop examination * VITAMIN B12(Performed 03/24/2017) Performed for Preop examination * VITAMIN B1(Performed 03/24/2017) Performed for Preop examination * EKG 12-LEAD(Performed 03/24/2017) Performed for Preop examination * HELICOBACTER PYLORI UREASE (STL)(Performed 03/07/2017) Performed for Heartburn, Acute gastritis with hemorrhage, unspecified gastritis type * ESOPHAGOGASTRODUODENOSCOPY (EGD) DIAGNOSTIC(Performed 03/07/2017) * US ABDOMEN LIMITED(Performed 02/05/2017) Performed for RUQ abdominal pain * PAP LB CT+GC(Performed 02/28/2016) * PAP IMAGE-GUIDED W HPV(Performed 02/28/2016) * PAP LB CT+GC(Performed 02/28/2016) * PATHOLOGY/GENETICS HISTORICAL-ONBASE(Performed 02/28/2016) * LAB(Performed 02/13/2016) * LAB(Performed 11/09/2015) * US ABDOMEN LTD W LTD DOPPLER(Performed 10/19/2015) * URINALYSIS REFLEX MICROSCOPIC REFLEX CULTURE(Performed 05/22/2015) * CT RENAL STONE(Performed 05/22/2015) Performed for RLQ abdominal pain * LIPASE BLOOD(Performed 05/22/2015) * COMPREHENSIVE METABOLIC PANEL(Performed 05/22/2015) * CBC W AUTO DIFFERENTIAL(Performed 05/22/2015) * XR LUMBAR SPINE 2 OR 3VW(Performed 01/15/2015) Performed for Midline low back pain without sciatica * CARDIAC RHYTHM STRIP ORDER(Performed 01/18/2014) * PATHOLOGY PERIPHERAL SMEAR REVIEW(Performed 01/17/2014) * COMPREHENSIVE METABOLIC PANEL(Performed 01/17/2014) * CBC W AUTO DIFFERENTIAL(Performed 01/17/2014) * HEPATITIS C ANTIBODY(Performed 01/17/2014) * HEPATITIS BE ANTIBODY(Performed 01/17/2014) * CANCER ANTIGEN (CA)125 BLOOD(Performed 01/17/2014) * RHEUMATOID FACTOR BLOOD QUANTITATIVE(Performed 01/17/2014) * RADHA ANTIBODY PANEL(Performed 01/17/2014) * CYCLIC CITRULLINATED PEPTIDE(CCP) AB IGG(Performed 01/17/2014) * LDH BLOOD(Performed 01/17/2014) * CONCETTA BLOOD SCREEN W/REFLEX TITER(Performed 01/17/2014) * CYTOMEGALOVIRUS ANTIBODY IGM BLOOD(Performed 01/17/2014) * CYTOMEGALOVIRUS ANTIBODY IGG BLOOD(Performed 01/17/2014) * DIFFERENTIAL MANUAL(Performed 01/16/2014) * CBC W AUTO DIFFERENTIAL(Performed 01/16/2014) * COMPREHENSIVE METABOLIC PANEL(Performed 01/16/2014) * DIFFERENTIAL MANUAL(Performed 01/15/2014) * COMPREHENSIVE METABOLIC PANEL(Performed 01/15/2014) * CBC W AUTO DIFFERENTIAL(Performed 01/15/2014) * NM HEPATOBILIARY WO EF(Performed 01/14/2014) Performed for LFT elevation * RESPIRATORY PATHOGEN PANEL BY PCR(Performed 01/14/2014) Performed for Abdominal pain, generalized, UTI (lower urinary tract infection), LFT elevation, GI bleed * CYTOMEGALOVIRUS QUAL PCR(Performed 01/14/2014) Performed for Abdominal pain, generalized, UTI (lower urinary tract infection), LFT elevation, GI bleed * PATHOLOGY PERIPHERAL SMEAR REVIEW(Performed 01/14/2014) Performed for Abdominal pain, generalized, UTI (lower urinary tract infection), LFT elevation, GI bleed * DIFFERENTIAL MANUAL(Performed 01/14/2014) Performed for Abdominal pain, generalized, UTI (lower urinary tract infection), LFT elevation, GI bleed * C-REACTIVE PROTEIN(Performed 01/14/2014) Performed for Fever * ERYTHROCYTE SEDIMENTATION RATE(Performed 01/14/2014) Performed for Fever * AMMONIA(Performed 01/14/2014) Performed for Abdominal pain, generalized, UTI (lower urinary tract infection), LFT elevation, GI bleed * CBC W AUTO DIFFERENTIAL(Performed 01/14/2014) Performed for Abdominal pain, generalized, UTI (lower urinary tract infection), LFT elevation, GI bleed * PHOSPHORUS BLOOD(Performed 01/14/2014) Performed for Abdominal pain, generalized, UTI (lower urinary tract infection), LFT elevation, GI bleed * MAGNESIUM BLOOD(Performed 01/14/2014) Performed for Abdominal pain, generalized, UTI (lower urinary tract infection), LFT elevation, GI bleed * COMPREHENSIVE METABOLIC PANEL(Performed 01/14/2014) Performed for Abdominal pain, generalized, UTI (lower urinary tract infection), LFT elevation, GI bleed * URINALYSIS REFLEX TO MICROSCOPIC NO CULTURE(Performed 01/13/2014) Performed for Fever * CULTURE URINE+GRAM STAIN(Performed 01/13/2014) Performed for Fever * XR CHEST 2VW(Performed 01/13/2014) Performed for Cough * US ABDOMEN LIMITED(Performed 01/13/2014) Performed for Abdominal pain, generalized, UTI (lower urinary tract infection), LFT elevation, GI bleed * EKG 12-LEAD(Performed 01/13/2014) Performed for Abdominal pain, generalized, UTI (lower urinary tract infection), LFT elevation, GI bleed * FOLATE(Performed 01/13/2014) Performed for Abdominal pain, generalized, UTI (lower urinary tract infection), LFT elevation, GI bleed * VITAMIN B12(Performed 01/13/2014) Performed for Abdominal pain, generalized, UTI (lower urinary tract infection), LFT elevation, GI bleed * PT PTT PANEL(Performed 01/13/2014) Performed for Abdominal pain, generalized, UTI (lower urinary tract infection), LFT elevation, GI bleed * T4 FREE(Performed 01/13/2014) Performed for Abdominal pain, generalized, UTI (lower urinary tract infection), LFT elevation, GI bleed * TSH(Performed 01/13/2014) Performed for Abdominal pain, generalized, UTI (lower urinary tract infection), LFT elevation, GI bleed * BILIRUBIN DIRECT(Performed 01/13/2014) Performed for Abdominal pain, generalized, UTI (lower urinary tract infection), LFT elevation, GI bleed * LACTIC ACID BLOOD(Performed 01/13/2014) Performed for Abdominal pain, generalized, UTI (lower urinary tract infection), LFT elevation, GI bleed * HIV-1 HIV-2 ANTIBODY RAPID(Performed 01/13/2014) Performed for Abdominal pain, generalized, UTI (lower urinary tract infection), LFT elevation, GI bleed * B-TYPE NATRIURETIC PEPTIDE(Performed 01/13/2014) Performed for Abdominal pain, generalized, UTI (lower urinary tract infection), LFT elevation, GI bleed * HEPATITIS SCREEN ACUTE(Performed 01/13/2014) Performed for Abdominal pain, generalized, UTI (lower urinary tract infection), LFT elevation, GI bleed * BARB-GOMEZ VIRUS ANTIBODY PANEL(Performed 01/13/2014) Performed for Abdominal pain, generalized, UTI (lower urinary tract infection), LFT elevation, GI bleed * CT ABDOMEN PELVIS WO CONTRAST(Performed 01/13/2014) Performed for Abdominal pain, generalized * CK BLOOD(Performed 01/13/2014) Performed for LFT elevation * URINE MICROSCOPIC ONLY REFLEX TO CULTURE(Performed 01/13/2014) * DIFFERENTIAL MANUAL(Performed 01/13/2014) * URINALYSIS REFLEX MICROSCOPIC REFLEX CULTURE(Performed 01/13/2014) * COMPREHENSIVE METABOLIC PANEL(Performed 01/13/2014) * CBC W AUTO DIFFERENTIAL(Performed 01/13/2014) * CULTURE URINE(Performed 01/13/2014) * URINALYSIS REFLEX MICROSCOPIC REFLEX CULTURE(Performed 01/11/2014) * ERYTHROCYTE SEDIMENTATION RATE(Performed 01/11/2014) * EHRLICHIA CHAFFEENSIS AB IGG/IGM PANEL(Performed 01/11/2014) * C-REACTIVE PROTEIN(Performed 01/11/2014) * TULARENSIS ANTIBODY IGG/IGM PANEL(Performed 01/11/2014) * JUVE ME SPOTTED FEVER IGG/IGM AB PNL(Performed 01/11/2014) * BORRELIA RELAPSING FEVER PANEL(Performed 01/11/2014) * COMPREHENSIVE METABOLIC PANEL(Performed 01/11/2014) * CBC W AUTO DIFFERENTIAL(Performed 01/11/2014) * CULTURE BLOOD(Performed 01/11/2014) * CULTURE STREP GROUP A(Performed 12/22/2013) * CARDIAC RHYTHM STRIP ORDER(Performed 10/22/2013) * COLONOSCOPY BIOPSY (ANY METHOD)(Performed 10/22/2013) * COLONOSCOPY SCREEN(Performed 10/22/2013) * GLUCOSE - POINT OF CARE(Performed 10/21/2013) * PATHOLOGY TISSUE EXAM (STL)(Performed 10/21/2013) Performed for Lower GI bleed * ENDOSCOPY, COLON, DIAGNOSTIC(Performed 10/21/2013) * DIFFERENTIAL MANUAL(Performed 10/21/2013) Performed for Lower GI bleed * CBC W AUTO DIFFERENTIAL(Performed 10/21/2013) Performed for Lower GI bleed * GLUCOSE - POINT OF CARE(Performed 10/21/2013) * GLUCOSE - POINT OF CARE(Performed 10/20/2013) * GLUCOSE - POINT OF CARE(Performed 10/20/2013) * GLUCOSE - POINT OF CARE(Performed 10/20/2013) * GLUCOSE - POINT OF CARE(Performed 10/20/2013) * SLIDE SCAN HEMATOLOGY(Performed 10/20/2013) Performed for Lower GI bleed * CBC W AUTO DIFFERENTIAL(Performed 10/20/2013) Performed for Lower GI bleed * HEMOGLOBIN A1C(Performed 10/20/2013) Performed for Lower GI bleed * BASIC METABOLIC PANEL (CALCIUM TOTAL)(Performed 10/20/2013) Performed for Lower GI bleed * CBC W AUTO DIFFERENTIAL(Performed 10/20/2013) Performed for Lower GI bleed * GLUCOSE - POINT OF CARE(Performed 10/20/2013) * PT PTT PANEL(Performed 10/19/2013) * COMPREHENSIVE METABOLIC PANEL(Performed 10/19/2013) * CBC W AUTO DIFFERENTIAL(Performed 10/19/2013) * CT ABDOMEN WWO PELVIS W CONT(Performed 10/01/2012) Performed for Unspecified Symptom Associated With Female Genital Organs * CREATININE BLOOD - POINT OF CARE (IP)(Performed 10/01/2012) * GROSS + MICRO EXAM(Performed 04/17/2010) * GROSS + MICRO EXAM(Performed 04/17/2010) * GLUCOSE - POINT OF CARE(Performed 04/17/2010) * ENDOSCOPY, COLON, SCREENING(Performed 04/17/2010) * PATHOLOGY REPORTS - HPF HISTORICAL(Performed 08/25/2009) * PATHOLOGY/GENETICS HISTORICAL-ONBASE(Performed 06/16/2009) * LAB HISTORICAL RESULTS-ONBASE(Performed 04/26/2009) * PATHOLOGY/GENETICS HISTORICAL-ONBASE(Performed 04/26/2009) * PATHOLOGY/GENETICS HISTORICAL-ONBASE(Performed 04/26/2009) Results * PATHOLOGY TISSUE EXAM (STL) (04/11/2021 3:21 PM DOCUMENTATION COORDINATOR) Only the most recent of3 resultswithin the time period is included. Case Report Surgical Pathology Report Case: [id number] Authorizing Provider: Atif Coppola MD Collected: 04/11/2021 03:21 PM Ordering Location: [facility] Received: 04/11/2021 03:43 PM Pathologist: Nichole Keller MD Specimens: A) - Polyp Sigmoid, 3 B) - Polyp Transverse, 2 04/12/2021 9:33 AM DOCUMENTATION COORDINATOR [facility] Final Diagnosis Large intestine, sigmoid polyps, biopsy (A) - Tubular adenomas Large intestine, transverse polyps, biopsy (B) - Tubular adenoma(s), fragmented 04/12/2021 9:33 AM DOCUMENTATION COORDINATOR [facility] Clinical History The patient is a 60-year-old woman. Endoscopic procedure/findings: multiple colon polyps, polypectomy. 04/12/2021 9:33 AM [facility] Gross Description The requisition and specimen are identified with patient's name and date of . Received in formalin, specimen A, polyp sigmoid 3 are 5 light-krishnan mucosal tissues, 0.1-0.3 cm in greatest dimension and 0.9 x 0.3 x 0.2 cm in aggregate. Entirely submitted in cassette A1. Received in formalin, specimen B, polyp transverse 2 are 2 light-krishnan mucosal tissues, 0.3 x 0.1 x 0.1 cm and 0.3 x 0.2 x 0.2 cm. Entirely submitted in cassette B1. LJ 04/12/2021 9:33 AM [facility] Microscopic Description Microscopic examination substantiates the above diagnosis. 04/12/2021 9:33 AM [facility] Disclaimer All histochemical and/or immunohistochemical results are interpreted with controls that demonstrate appropriate staining reactions before reporting results. Note on use of immunocytochemistry reagents: This test was developed and its performance characteristic determined by [facility], Department of Laboratory Medicine. It has not been cleared or approved by the U.S. Food and Drug Administration (FDA). The FDA has determined that such clearance or approval is not necessary. The test is used for clinical purpose. It should not be regarded as investigational or for research. This laboratory is certified to perform high complexity testing. The performance characteristics of the IHC/DEYSI assays have been validated on formalin-fixed paraffin embedded tissues only. The assays have not been validated on decalcified tissues. Results should be interpreted with caution. 04/12/2021 9:33 AM [facility] Embedded Images 04/12/2021 9:33 AM [facility] Pathology/Cytology POLYP OF SIGMOID COLON / Unknown 04/11/2021 3:21 PM DOCUMENTATION COORDINATOR 04/11/2021 3:43 PM DOCUMENTATION COORDINATOR Comment:Pre-op diagnosis: Personal history of colonic polyps [Z86.010] Miscellaneous samples (specimen) POLYP / Unknown 04/11/2021 3:24 PM DOCUMENTATION COORDINATOR 04/11/2021 3:43 PM DOCUMENTATION COORDINATOR Comment:Pre-op diagnosis: Personal history of colonic polyps [Z86.010] Atif Coppola MD LAB - PATHOLOGY/CYTO LOGY ORDERABLES [facility] [address] [place], [place] [id number] * ENDOSCOPY, COLON, SCREENING (04/11/2021 3:04 PM DOCUMENTATION COORDINATOR) Report Endoscopy POC _ Patient Name: Yareli Marshall Procedure Date: 04/11/2021 3:04 PM Date of : 1960 Admit Type: Outpatient Age: 60 Gender: Female Ethnicity: Not or Race: White Attending MD: Atif Coppola MD _ Procedure: Colonoscopy Indications: Personal history of colonic polyps Providers: Atif Coppola MD (Doctor), Shama Monsalve, RN, Claire Lockett, RN Referring MD: Daniel Shrestha (Referring MD) [...] pathology results. Procedure Code(s): --- Professional --- 20267, Colonoscopy, flexible; with biopsy, single or multiple --- Technical --- 55981, Colonoscopy, flexible; with biopsy, single or multiple Diagnosis Code(s): --- Professional --- K63.5, Polyp of colon Z86.010, Personal history of colonic polyps K57.30, Diverticulosis of large intestine without perforation or abscess without bleeding --- Technical --- K63.5, Polyp of colon Z86.010, Personal history of colonic polyps K57.30, Diverticulosis of large intestine without perforation or abscess without bleeding CPT copyright 2019 [employer]. All rights reserved. The codes documented in this report are preliminary and upon shingle grader review may be revised to meet current compliance requirements. Atif Coppola MD 04/11/2021 3:37:40 PM This report has been signed electronically. Number of Addenda: 0 Note Initiated On: 04/11/2021 3:04 PM [facility] ENDOSCOPY 04/11/2021 3:04 PM DOCUMENTATION COORDINATOR Atif Coppola MD GI PROCEDURE ORDERAB LES [facility] ENDOSCOPY * CARDIAC RHYTHM STRIP ORDER (06/07/2020 6:02 PM DOCUMENTATION COORDINATOR) Only the most recent of4 resultswithin the time period is included. Narrative 06/07/2020 6:02 PM DOCUMENTATION COORDINATOR Ordered by an unspecified provider. Scanned Document CARDIAC SERVICES ORD ERABLES * ETT LINE PERFORMABLE (06/02/2020 8:26 AM DOCUMENTATION COORDINATOR) Narrative Amna Leger APRN-CRNA - 06/02/2020 8:26 AM DOCUMENTATION COORDINATOR Amna Leger APRN-CRNA 06/02/2020 8:27 AM Endotracheal Tube Placement: Patient Location: OR. Intubation Event Date/Time: 06/02/2020 8:16 AM Procedure: intubation ([id number]). Procedure Section: Sedation: under general anesthesia. Indications for Airway Management: anesthesia Induction: rapid sequence and cricoid pressure Patient Position: sniffing and ramp/troop pillow Mask Ventilation: not attempted. Blade Type: Km Blade Size: 4 Laryngoscopy View: grade 1 (full cords) Intubation Adjuncts: stylet Tube: endotracheal tube Placement: oral Tube type: cuff - inflated Tube Size (MM): 7 Depth of Insertion (CM): 22 Measured From: teeth Cuff volume (mL): 7 Cuff Inflated With: air Number of Attempts: 1. Placement Verified By: direct visualization, bilateral breath sounds, chest auscultation and CO2 monitor Tube secured with: adhesive tape. Difficult Airway? No. Procedure Start Time: 06/02/2020 8:16 AM. Staff Section Anesthesia Provider: Amna Leger APRN-CRNA, Performed the procedure Additional Comments: Dentition/oral mucosa unchanged from pre-op exam following DVOI.. Osman Tyler MD GENERAL ANESTHESIA ORDERABLES * SARS-COV-2 (COVID-19) PRE-SURGICAL/PROCEDURE (05/31/2020 8:22 AM DOCUMENTATION COORDINATOR) COVID-19 PCR Not detected Not detected 05/31/2020 5:00 PM DOCUMENTATION COORDINATOR [facility] MICROBIOLOGY Microbiology SPECIMEN FROM NASOPHARYNGEAL STRUCTURE / Unknown Collection / Unknown 05/31/2020 8:22 AM DOCUMENTATION COORDINATOR 05/31/2020 8:25 AM DOCUMENTATION COORDINATOR Narrative [facility] MICROBIOLOGY - 05/31/2020 5:00 PM DOCUMENTATION COORDINATOR This nucleic acid amplification assay performance was validated by [facility]. This test has been authorized by the Food and Drug administration (FDA)under an Emergency Use Authorization (EUA). This test has been validated in accordance with the FDA's guidance document Policy for Diagnostic Testing in Laboratories Certified to perform High Complexity Testing under CLIA prior to Emergency Use Authorization for Coronavirus Disease-2019 during the Public Health Emergency issued on July 24, 2019. FDA independent review of this validation is pending. This test is only authorized for the duration of time the declaration that circumstances exist justifying the authorization of emergency use of in vitro diagnostic tests for detection of SARS-CoV-2 virus and/or diagnosis of COVID-19 infection under section 564(b)(1) of the Act, 21 U.S.C 360bbb-3 (b)(1), unless the authorization is terminated or revoked sooner. Fact Sheets for this EUA assay are available upon request. Swetha Bernstein MD LAB - MICROBIOLOGY O RDERABLES [facility] MICRO[facility]OLOG[facility] [address] [place] [address], [facility] [phone] * IMAGING RADIOLOGY XRAY RESULTS ORDER (05/31/2020 7:52 AM DOCUMENTATION COORDINATOR) Anatomical Region Laterality Modality Other Narrative 05/31/2020 7:52 AM DOCUMENTATION COORDINATOR Ordered by an unspecified provider. Scanned Document IMAGING * [place] SONO EXAM, TRANSVAGINAL (05/10/2020 4:02 PM DOCUMENTATION COORDINATOR) Narrative Kathi Riddle RDMS - 05/10/2020 4:02 PM DOCUMENTATION COORDINATOR Kathi Riddle RDMS 05/10/2020 4:03 PM Documentation in digisonics. Swetha Bernstein MD PROCEDURE/MINOR SURG ICAL ORDERABLES * HPV DETECTION HIGH RISK TRIPP (03/22/2020 1:48 PM CDT) High Risk Human Papilloma Result Not Detected Not Detected 03/24/2020 3:03 PM CDT [facility] High Risk Human Papilloma Interp 03/24/2020 3:03 PM CDT [facility] Comment:High Risk Human Lokesh lloma Virus was Not Detected. Pathology/Cytolo gy MISCELLANEOUS SAMPLES / Unknown 03/22/2020 1:48 PM CDT 03/23/2020 12:17 PM CDT Narrative [facility] - 03/24/2020 3:03 PM CDT [...] Bernstein MD LAB - MICROBIOLOGY O RDERABLES [facility] [address] [facility]. [address] [phone] * PAP IMAGE-GUIDED W HPV (03/22/2020 1:48 PM CDT) Only the most recent of2 resultswithin the time period is included. Case Report Gynecologic Cytology Report Case: [id number] Authorizing Provider: Swetha Bernstein MD Collected: 03/22/2020 01:48 PM Ordering Location: [facility] Obstetrics Received: 03/23/2020 12:17 PM Gynecology and Women's Health First Screen: Alonzo Mariee Specimen: THINPREP - NON IMAGE GUIDED, Cervix/Endocervix 03/28/2020 10:18 AM DOCUMENTATION COORDINATOR [facility] LMP none 03/28/2020 10:18 AM DOCUMENTATION COORDINATOR [facility] Menstrual Status Not Given 03/28/20 20 10:18 AM DOCUMENTATION COORDINATOR [facility] Specimen Adequacy Satisfactory for evaluation, endocervical/tranf ormation zone absent in a menopausal/post menopausal patient. 03/28/2020 10:18 AM DOCUMENTATION COORDINATOR [facility] Categorization Negative for intraepithelial lesion or malignancy. 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 03/28/2020 10:18 AM DOCUMENTATION COORDINATOR [facility] Other Predominance of Coccobacilli consistent with shift in vaginal jonathan (vaginosis). 03/28/2020 10:18 AM DOCUMENTATION COORDINATOR [facility] Pap Footnote This specimen was evaluated by the ThinPrep Imaging System along with the an additional manual rescreening by a boot and shoe laborer and/or pathologist. 03/28/2020 10:18 AM DOCUMENTATION COORDINATOR [facility] Embedded Images 0 10:18 AM DOCUMENTATION COORDINATOR [facility] Pathology/Cytolo gy MISCELLANEOUS SAMPLES / Unknown 03/22/2020 1:48 PM CDT 03/23/2020 12:17 PM CDT Swetha Bernstein MD LAB - PATHOLOGY/CYTO LOGY ORDERABLES [facility] [address] [phone] * MAMMOGRAM (10/28/2018 6:28 AM CDT) Anatomical Region Laterality Modality Other Narrative 10/28/2018 6:28 AM CDT Ordered by an unspecified provider. Scanned Document SCANNING ONLY * POLYSOMNOGRAM WITH CPAP IF INDICATED (09/22/2018 5:01 PM CDT) Narrative Tung Maxwell MD - 09/22/2018 5:01 PM CDT Tung Maxwell MD 09/22/2018 5:01 PM All Night Polysomnogram Report Patient Name: Yareli Marshall Date of : 1960 Study Date: 09/02/2018 Referring: Daniel Shrestha DO Interpreting: Brooks Bird MD Clinical History: Yareli Marshall is a 57 year old female with a past medical history of obesity who complains of snoring, witnessed apneas, excessive daytime sleepiness, restless sleep and weight gain: 60 lbs. Patient's recent weight is 390 lbs with a BMI of 69.10. Technical Summary: At least 6 channels were used for EEG and 2 were used for electro-oculograms. Respiratory monitoring was done using pressure transducer, oral thermistor, and thoracic and abdominal respiratory effort belts. Limb movement was monitored by 2 channels over the anterior tibialis muscles. There were snoring and position sensors and an oxygen probe was used. ECG was monitored with 1-2 leads. OHs are scored based on rule 1A of the AASM Manual for the Scoring of Sleep and Associated Events. Sleep Architecture: Total recording time was 526.0 minutes with lights out at 8: 45 pm and lights on at 5: Thirty-one am. Total sleep time was 350.0 minutes for a sleep efficiency of 66.5 %. Sleep latency was 12.0 minutes. REM sleep was present with a latency of 208.5 minutes. The patient had 20.4 % stage N1 sleep, 66.4 % stage N2 sleep, 0.0 % stage N3 sleep, and 13.1 % stage REM sleep. Wake after sleep onset was 47.0 minutes. No EEG abnormalities were noted on limited montage EEG. There were 58 periodic limb movements and these resulted in 29 arousals. PLMD index was 9.9. There were 100 to total spontaneous arousals. There was moderate snoring noted. EKG monitoring revealed baseline sinus rhythm with no significant abnormalities noted. Respiratory Analysis: There were 0 obstructive apneas, 0 mixed apneas, 1 central apneas, 69 hypopneas (using 4% oxygen desaturation rule) with an apnea-hypopnea index (AHI) of 12.0 events per hour. REM AHI was 33.9. The patient slept for 89.2 minutes in the supine position with an AHI of 9.4 events per hour. The patient slept for 85.8 minutes in the left lateral position with an AHI of 14.0 events per hour. The patient slept for 105.6 minutes in the right lateral position with an AHI of 9.7 events per hour. The patient slept for 74.4 minutes in the prone position with an AHI of 16.4 events per hour. The average oxygen saturation while awake was 93 %, while asleep 92 %. The lowest oxygen saturation during sleep was 78 %. Interpretation: This is an abnormal all night polysomnogram because it provides evidence of mild obstructive sleep apnea. A positive airway pressure (PAP) titration was not performed due to the relatively low frequency of respiratory events during the first portion of the night. I have personally reviewed the raw data in its entirety Recommendations: Given the patient s history of obesity and Previously on CPAP therapy for URBANO, the patient would likely benefit from a CPAP titration. This will require a full follow up night of recording. It is possible that an auto CPAP could be used depending on previous settings and the type of unit she has Diagnosis: URBANO PLMD Brooks Bird MD Pulmonary Medicine [facility] I have reviewed the raw data. Tung Maxwell MD Spl[employer] [facility] Diplomate of the [place] Board of Psychiatry and Neurology Board certified in Sleep Medicine Brooks Bird MD SLEEP CENTER ORD ERABLES * COMPLETE PFT W/WO BRONCHODILATOR (09/09/2018 1:02 PM CDT) Narrative Brooks Bird MD - 09/09/2018 1:02 PM CDT Brooks Bird MD 09/09/2018 1:02 PM PULMONARY FUNCTION TEST 09/08/2018 METHODS: Spirometry is performed according to ATS standards. Lung volumes are performed by body plethysmography. Diffusing capacity is performed using single-breath method. Adequacy of Test and Effort: Test are reproducible and adequate for interpretation. LUNG VOLUMES: The lung volumes are in the normal range for age and height. The ERV is reduced consistent with obesity. TLC is 93 % of predicted value. LUNG FLOWS/SPIROMETRY: There is a decrease of expiratory airflow at HIGH lung volumes. FEV1 is 2.12 L (84 % predicted) FEV1/FVC is 72 % RESPONSE TO BRONCHODILATOR: There is no clear and significant response to the administration of bronchodilator. FLOW VOLUME LOOP: The expiratory limb is normal. The inspiratory limb is normal. DIFFUSION CAPACITY: The diffusing capacity is in the normal range. DLCO is 101 % of predicted value. AIRWAY RESISTANCE: Specific airway resistance is normal. INTERPRETATION: There is MILD obstructive ventilatory defect. There is not a clear and significant bronchodilator response. The DLCO is normal. Brooks Bird MD 09/09/2018 Brooks Bird MD RESPIRATORY THER APY ORDERABLES * (ABNORMAL) BASIC METABOLIC PANEL (CALCIUM TOTAL) (08/27/2018 12:21 PM CDT) Only the most recent of4 resultswithin the time period is included. Glucose 102 74 - 106 mg/dL 08/27/2018 1:17 PM CDT [facility] Sodium 136 136 - 145 mmol/L 08/27/2018 1:17 PM CDT [facility] Potassium 4.6 3.5 - 5.1 mmol/L 08/27/2018 1:17 PM CDT [facility] Chloride 104 98 - 107 mmol/L 08/27/2018 1:17 PM CDT [facility] CO2 26 22 - 31 mmol/L 08/27/2018 1:17 PM CDT [facility] Calcium 9.1 8.5 - 10.1 mg/dL 08/27/2018 1:17 PM CDT [facility] Anion Gap 6(L) 8 - 16 mmol/L 08/27/2018 1:17 PM CDT [facility] BUN 29(H) 7 - 21 mg/dL 08/27/2018 1:17 PM CDT [facility] Creatinine 0.99 0.50 - 1.30 mg/dL 08/27/2018 1:17 PM CDT [facility] eGFR by MDRD 58(L) >60 mL/min/1.7 3m2 08/27/2018 1:17 PM CDT [facility] eGFR by MDRD >60 >60 mL/min/1.7 3m2 08/27/2018 1:17 PM CDT [facility] Blood BLOOD SPECIMEN / Unknown Lab Venipuncture / Unknown 08/27/2018 12:21 PM CDT 08/27/2018 12:22 PM CDT Latasha Wells MD LAB - CHEMISTRY OR DERABLES Performing Organization Address City/[facility] Co de Phone Number [facility] [address] [place], [place] [phone] * GLUCOSE - POINT OF CARE (08/20/2018 3:42 PM CDT) Only the most recent of23 resultswithin the time period is included. [facility] Glucose WB/POC 97 70 - 106 mg/dL 08/20/2018 3:51 PM CDT [facility] Specimen Type CAPILLARY BLOOD 08/20/2018 3:51 PM CDT [facility] Blood BLOOD SPECIMEN / Unknown 08/20/2018 3:42 PM CDT 08/20/2018 3:51 PM CDT Swetha Bernstein MD LAB - POINT OF CARE ORDERABLES Performing Organization Address City/[facility]/ZIP Co de Phone Number [facility] [address] [place] [address] * CT CHEST ABDOMEN PELVIS W CONT (08/20/2018 3:29 PM CDT) Anatomical Region Laterality Modality Chest, Abdomen, Pelvis Computed Tomography 08/20/2018 3:46 PM CDT Impressions 08/20/2018 4:09 PM CDT Negative for infiltrate or nodule. CT ABDOMEN AND PELVIS: Images from above the diaphragm to below the pubic symphysis during contrast infusion are compared to a prior CT abdomen of 2014. No focal abnormality is seen in the liver, spleen or pancreas. Gallbladder contains no calcified stones. Adrenals and kidneys are unremarkable. There is no retroperitoneal adenopathy or ascites. No pelvic mass or fluid collection is seen. Urinary bladder is unremarkable. Degenerative changes are seen in the lumbar spine. IMPRESSION: Negative for mass or fluid collection. Edited by Agata Carrizales on 08/20/2018 4:00 PM Reading Radiologist: Pedro Pablo Tavarez MD on 08/20/2018 at 4:09 PM Narrative 08/20/2018 4:[address] THORAX, ABDOMEN AND PELVIS HISTORY: Malaise and fatigue, history of ovarian cancer. CT THORAX: Images are provided from the lung apices to the costophrenic sulci during contrast infusion. A prior exam of 08/02/2018 is available for comparison. No pulmonary nodule, infiltrate or pleural or pericardial effusion is seen. An azygos lobe is present. Degenerative changes are seen in the thoracic spine. Hemangioma is also seen. Procedure Note Pedro Pablo Tavarez MD - 08/20/2018 CT THORAX, ABDOMEN AND PELVIS HISTORY: Malaise and fatigue, history of ovarian cancer. CT THORAX: Images are provided from the lung apices to the costophrenic sulci during contrast infusion. A prior exam of 08/02/2018 is available for comparison. No pulmonary nodule, infiltrate or pleural or pericardial effusion is seen. An azygos lobe is present. Degenerative changes are seen in the thoracic spine. Hemangioma is also seen. IMPRESSION Negative for infiltrate or nodule. CT ABDOMEN AND PELVIS: Images from above the diaphragm to below the pubic symphysis during contrast infusion are compared to a prior CT abdomen of 2014. No focal abnormality is seen in the liver, spleen or pancreas. Gallbladder contains no calcified stones. Adrenals and kidneys are unremarkable. There is no retroperitoneal adenopathy or ascites. No pelvic mass or fluid collection is seen. Urinary bladder is unremarkable. Degenerative changes are seen in the lumbar spine. IMPRESSION: Negative for mass or fluid collection. Edited by Agata Carrizales on 08/20/2018 4:00 PM Reading Radiologist: Pedro Pablo Tavarez MD on 08/20/2018 at 4:09 PM Martinez Garzon MD CT ORDERABLES * WBC COUNT (08/20/2018 9:19 AM CDT) WBC 7.5 4.4 - 10.7 x10E9/L 08/20/2018 9:35 AM CDT [facility] Blood BLOOD SPECIMEN / Unknown Lab Venipuncture / Unknown 08/20/2018 9:19 AM CDT 08/20/2018 9:29 AM CDT Catrachito Chambers MD LAB - HEMATO LOGY ORDERABLES [facility] [address] [place] [address] * NT-PRO BNP (08/20/2018 1:27 AM CDT) Only the most recent of4 resultswithin the time period is included. NT-proBNP 10.0 <300.0 pg/mL 08/20/2018 3:13 AM CDT [facility] Blood BLOOD SPECIMEN / Unknown Lab Venipuncture / Unknown 08/20/2018 1:27 AM CDT 08/20/2018 2:04 AM CDT Narrative [facility] - 08/20/2018 3:13 AM CDT NT-proBNP Patient Age Acute HF Unlikely Acute HF Likely <50 years <300 pg/mL >450 pg/mL 50-75 years <300 pg/mL >900 pg/mL >75 years <300 pg/mL >1800 pg/mL Reference: SUMMER Sun et al. ICON Study. Heart Journal (2006) 27, 330- 337 Both BNP and NT-proBNP derive from the precursor molecule called proBNP which is secreted from the ventricles in response to ventricle volume expansion and/or pressure overload. The secreted proBNP is subsequently cleaved by enzymes to form BNP, the active hormone and NT-proBNP an inactive metabolite. NT-proBNP has a longer half-life of 1.5-2.0 hours verses BNP with a half-life of 20 min for BNP. Both are useful biomarkers of ventricular distension due to increased intracardiac pressure. Both BNP and NT-proBNP increase with age and renal insufficiency. Increased concentrations of NT-proBNP have also been observed in the setting of acute myocardial infarction, right ventricular failure, valvular heart disease, and atrial fibrillation. Nelsy Sharma [facility] - CHEMISTRY OR DERABLES Performing Organization Address City/[facility]/ZIP Co de Phone Number [facility] [address] [place] [phone] * TSH REFLEX FREE T4 (08/20/2018 1:27 AM CDT) Only the most recent of2 resultswithin the time period is included. TSH 0.794 0.358 - 3.740 ulU/mL 08/20/2018 3:11 AM CDT [facility] Blood BLOOD SPECIMEN / Unknown Lab Venipuncture / Unknown 08/20/2018 1:27 AM CDT 08/20/2018 2:04 AM CDT Nelsy Sharma [facility] - CHEMISTRY OR DERABLES Performing Organization Address [facility] Co de Phone Number [facility] [address] [place] [phone] * CANCER ANTIGEN (CA) 19-9 (08/20/2018 1:27 AM CDT) CA 19-9 8 0 - 35 U/mL 08/21/2018 4:09 AM CDT [facility] ([facility]) Comment: [facility] Electrochemiluminescence Immunoassay (ECLIA) Values obtained with different assay methods or kits cannot be used interchangeably. Results cannot be interpreted as absolute evidence of the presence or absence of malignant disease. Blood BLOOD SPECIMEN / Unknown Lab Venipuncture / Unknown 08/20/2018 1:27 AM CDT 08/20/2018 2:04 AM CDT Narrative [facility] ([facility]) - 08/21/2018 4:09 AM CDT Performed at: [address] [place] [address] [place] [id number] Tank Tender: Rai Driscoll PhD, Phone: [phone] Mayra Sarmiento MD LAB - CHEMISTRY [facility] [place] Performing Organization Address City/[facility]/ZIP Co de Phone Number [facility] ([facility]) [address] [place] [address] * CANCER ANTIGEN (CA)125 BLOOD (08/20/2018 1:27 AM CDT) Only the most recent of2 resultswithin the time period is included. CA 125 9.0 0.0 - 38.1 U/mL 08/21/2018 4:09 AM CDT [facility] Comment: [facility] Electrochemiluminescence Immunoassay (ECLIA) Values obtained with different assay methods or kits cannot be used interchangeably. Results cannot be interpreted as absolute evidence of the presence or absence of malignant disease. Blood BLOOD SPECIMEN / Unknown Lab Venipuncture / Unknown 08/20/2018 1:27 AM CDT 08/20/2018 2:04 AM CDT Narrative [facility] ([facility]) - 08/21/2018 4:09 AM CDT Performed at: - [facility] [address] [place], [place] [id number] Tank Tender: Rai Driscoll PhD, Phone: [phone] Mayra Sarmiento MD LAB - CHEMISTRY [place] [place] Performing Organization Address City/[facility]/ZIP Co de Phone Number [facility] ([facility]) [address] [place] [address] * HEMOGLOBIN A1C (08/20/2018 1:27 AM CDT) Only the most recent of3 resultswithin the time period is included. Pathologist [facility] Hemoglobin A1c 5.9 4.2 - 6.3 % 08/20/2018 3:18 AM CDT [facility] Estimated Average Glucose 123 mg/dL 08/20/2018 3:18 AM CDT [facility] Blood BLOOD SPECIMEN / Unknown Lab Venipuncture / Unknown 08/20/2018 1:27 AM CDT 08/20/2018 2:04 AM CDT Narrative [facility] - 08/20/2018 3:18 AM CDT Attention clinician: Reference Range has changed. Nelsy Sharma APRN-CERTIFIED MEDICAL AIDE LAB - CHEMISTRY OR DERABLES Performing Organization Address City/[facility]/ZIP Co de Phone Number [facility] [address] [place] [address] * CEA BLOOD (08/20/2018 1:27 AM CDT) [facility] CEA 0.6 0.0 - 4.7 ng/mL 08/21/2018 4:09 AM CDT [facility]) Comment: Nonsmokers <3.9 Smokers <5.6 [facility] Electrochemiluminescence Immunoassay (ECLIA) Values obtained with different assay methods or kits cannot be used interchangeably. Results cannot be interpreted as absolute evidence of the presence or absence of malignant disease. Blood BLOOD SPECIMEN / Unknown Lab Venipuncture / Unknown 08/20/2018 1:27 AM CDT 08/20/2018 2:04 AM CDT Narrative [facility] ([facility]) - 08/21/2018 4:09 AM CDT Performed at: [address] [place] [id number] Tank Tender: Rai Driscoll PhD, Phone: [phone] Mayra Sarmiento MD LAB - CHEMISTRY [facility] ([facility]) [address] [place] [address] * (ABNORMAL) CBC W AUTO DIFFERENTIAL (08/19/2018 4:44 PM CDT) Only the most recent of19 resultswithin the time period is included. [facility] WBC 11.3(H) 4.4 - 10.7 x10E9/L 08/19/2018 4:54 PM CDT [facility] WBC Corrected x10E9/L 08/19/2018 4:54 PM CDT [facility] RBC 4.45 3.80 - 5.20 x10E12/L 08/19/2018 4:54 PM CDT [facility] Hemoglobin 13.0 12.0 - 15.6 gm/dL 08/19/2018 4:54 PM CDT [facility] Hematocrit 40.8 35.9 - 45.5 % 08/19/2018 4:54 PM CDT [facility] MCV 91.7 80.7 - 98.3 fl 08/19/2018 4:54 PM CDT [facility] MCH 29.2 26.7 - 34.0 pg 08/19/2018 4:54 PM CDT [facility] MCHC 31.9 30.8 - 35.9 gm/dL 08/19/2018 4:54 PM CDT [facility] Platelet Count 282 153 - 416 x10E9/L 08/19/2018 4:54 PM [facility] RDW-CV 13.9 12.1 - 14.9 % 08/19/2018 4:54 PM CDT [facility] MPV 10.7 9.4 - 12.9 fl 08/19/2018 4:54 PM [facility] Neutrophils % 66.8 44.0 - 73.0 % 08/19/2018 4:54 PM T [facility] Lymphocytes % 23.8 20.0 - 43.0 % 08/19/2018 4:54 PM CDT [facility] Monocytes % 7.3 5.0 - 13.0 % 08/19/2018 4:54 PM [facility] Eosinophils % 1.2 0.0 - 6.0 % 08/19/2018 4:54 PM CDT [facility] Basophils % 0.4 0.0 - 2.0 % 08/19/2018 4:54 PM [facility] Immature Granulocytes 0.5 0 - 1 % 08/19/2018 4:54 PM [facility] Neutrophil Absolute 7.54(H) 2.01 - 7.14 x10E9/L 08/19/2018 4:54 PM [facility] Lymphocytes Absolute 2.68 1.07 - 3.94 x10E9/L 08/19/2018 4:54 PM CDT [facility] Monocytes Absolute 0.82 0.26 - 1.07 x10E9/L 08/19/2018 4:54 PM CDT [facility] Eosinophils Absolute 0.13 0 - 0.47 x10E9/L 08/19/2018 4:54 PM CDT [facility] Basophils Absolute 0.04 0 - 0.08 x10E9/L 08/19/2018 4:54 PM [facility] Immature Granulocytes Absolute 0.06 0.00 - 0.06 x10E9/L 08/19/2018 4:54 PM CDT [facility] nRBC Auto 0 /100 WBC 08/19/2018 4:54 PM CDT [facility] Blood BLOOD SPECIMEN / Unknown Lab Venipuncture / Unknown 08/19/2018 4:44 PM CDT 08/19/2018 4:46 PM CDT Mayra Sarmiento MD LAB - HEMATOLOGY ORD ERABLES [facility] [address] [place] [address] * (ABNORMAL) COMPREHENSIVE METABOLIC PANEL (08/19/2018 4:44 PM CDT) Only the most recent of13 resultswithin the time period is included. Glucose 127(H) 74 - 106 mg/dL 08/19/2018 5:28 PM CDT [facility] Sodium 135(L) 136 - 145 mmol/L 08/19/2018 5:28 PM CDT [facility] Potassium 4.5 3.5 - 5.1 mmol/L 08/19/2018 5:28 PM CDT [facility] Chloride 106 98 - 107 mmol/L 08/19/2018 5:28 PM CDT [facility] CO2 22 22 - 31 mmol/L 08/19/2018 5:28 PM CDT [facility] Calcium 8.9 8.5 - 10.1 mg/dL 08/19/2018 5:28 PM CDT [facility] Anion Gap 7(L) 8 - 16 mmol/L 08/19/2018 5:28 PM CDT [facility] BUN 58(H) 7 - 21 mg/dL 08/19/2018 5:28 PM CDT [facility] Creatinine 1.60(H) 0.50 - 1.30 mg/dL 08/19/2018 5:28 PM CDT [facility] Alkaline Phosphatase 70 38 - 126 U/L 08/19/2018 5:28 PM CDT [facility] ALT 56 13 - 61 U/L 08/19/2018 5:28 PM CDT [facility] AST 21 5 - 40 U/L 08/19/2018 5:28 PM CDT [facility] Protein Total 7.3 6.4 - 8.2 gm/dL 08/19/2018 5:28 PM CDT [facility] Albumin 3.5 3.4 - 5.0 gm/dL 08/19/2018 5:28 PM CDT [facility] Bilirubin Total 0.4 0.2 - 1.0 mg/dL 08/19/2018 5:28 PM CDT [facility] eGFR by MDRD 33(L) >60 mL/min/1.7 3m2 08/19/2018 5:28 PM CDT [facility] eGFR by MDRD 40(L) >60 mL/min/1.7 3m2 08/19/2018 5:28 PM CDT [facility] Blood BLOOD SPECIMEN / Unknown Lab Venipuncture / Unknown 08/19/2018 4:44 PM CDT 08/19/2018 4:46 PM CDT Mayra Sarmiento MD LAB - CHEMISTRY TRICIA CUMMINGS Performing Organization Address City/[facility]/ZIP Co de Phone Number [facility] [address] [place], [place] [phone] * (ABNORMAL) PHOSPHORUS BLOOD (08/19/2018 4:44 PM CDT) Only the most recent of2 resultswithin the time period is included. Phosphorus 5.0(H) 2.5 - 4.9 mg/dL 08/19/2018 5:28 PM CDT [facility] Blood BLOOD SPECIMEN / Unknown Lab Venipuncture / Unknown 08/19/2018 4:44 PM CDT 08/19/2018 4:46 PM CDT Mayra Sarmiento MD LAB - CHEMISTRY TRICIA CUMMINGS Performing Organization Address City/[facility]/ZIP Co de Phone Number [facility] [address] [place], [place] [phone] * MAGNESIUM BLOOD (08/19/2018 4:44 PM CDT) Only the most recent of3 resultswithin the time period is included. Magnesium 2.4 1.6 - 2.6 mg/dL 08/19/2018 5:28 PM CDT [facility] Blood BLOOD SPECIMEN / Unknown Lab Venipuncture / Unknown 08/19/2018 4:44 PM CDT 08/19/2018 4:46 PM CDT Mayra Sarmiento MD LAB - CHEMISTRY ORDE EMILIANO [facility] [address], [place] [id number] * CARDIAC EKG ORDER (08/12/2018 11:24 PM CDT) Only the most recent of2 resultswithin the time period is included. Narrative 08/12/2018 11:24 PM CDT Ordered by an unspecified provider. Scanned Document CARDIAC SERVICES ORD ERABLES * XR CHEST PA AND LATERAL (08/11/2018 2:41 PM CDT) Only the most recent of3 resultswithin the time period is included. Anatomical Region Laterality Modality Chest Radiographic Karolina ging 08/11/2018 2:47 PM CDT Narrative 08/11/2018 2:48 PM CDT Chest 2 view HISTORY: Shortness of breath Since 08/01/2018 there's been no change the heart size. The pulmonary vascularity and elio are normal. There is no acute lung consolidation or pleural effusion. The soft tissues and bony thorax are stable. Reading Radiologist: Martinez Magallanes MD on 08/11/2018 at 2:48 PM Procedure Note Martinez Magallanes MD - 08/11/2018 Chest 2 view HISTORY: Shortness of breath Since 08/01/2018 there's been no change the heart size. The pulmonary vascularity and elio are normal. There is no acute lung consolidation or pleural effusion. The soft tissues and bony thorax are stable. Reading Radiologist: Martinez Magallanes MD on 08/11/2018 at 2:48 PM Nichole Lawrence PICTURE FRAME MAKER-CERTIFIED MEDICAL AIDE DIAGNOSTIC I MAGING ORDERABLES * TROPONIN I (08/11/2018 2:20 PM CDT) Only the most recent of4 resultswithin the time period is included. Troponin I <0.015 0.000 - 0.049 ng/mL 08/11/2018 3:18 PM CDT [facility] Blood BLOOD SPECIMEN / Unknown Venipuncture / Unknown 08/11/2018 2:20 PM CDT 08/11/2018 2:59 PM CDT Narrative [facility] - 08/11/2018 3:18 PM CDT Note: Diagnosis of myocardial infarction requires symptoms of ischemia or EKG changes of ischemia and Troponin I >99th of normal (0.05 ng/mL). Troponin should be drawn on initial assessment and 3-6 hours later as clinically indicated. Any condition resulting in myocardial cell damage can increase cardiac troponin levels. In addition to myocardial infarction, these include but are not limited to congestive heart failure (CHF), arrhythmia, myocarditis, and non-cardiac related causes such as pulmonary embolism, renal failure and sepsis. Nichole HERBERT LAB - CHEMIS TRY ORDERABLES Performing Organization Address [facility]/ZIP Co de Phone Number [facility] [address] [place] [address] * EKG 12-LEAD (08/11/2018 2:14 PM CDT) Only the most recent of4 resultswithin the time period is included. Ventricular Rate 93 BPM [facility] Atrial Rate 93 BPM [facility] P-R Interval 170 ms [facility] QRS Duration ms 80 ms [facility] Q-T Interval ms 308 ms [facility] QTC Calculation (Bezet) 382 ms [facility] Calculated P [place] 24 degrees [facility] Calculated R [place] 44 degrees [facility] Calculated T [place] 30 degrees [facility] Interpretation EKG NORMAL SINUS RHYTHM NORMAL ECG WHEN COMPARED WITH ECG OF 01-AUG-2018 23:32, NO SIGNIFICANT CHANGE WAS FOUND Confirmed by MD MACK, LISSA Fraga ([id number]) on 08/12/2018 7:08:57 AM [facility] 08/11/2018 2:14 PM CDT 08/12/2018 7:08 AM CDT Nichole HERBERT ECG ORDERABL ES Performing Organization Address [facility]/ZIP Co de Phone Number [facility] * ECHOCARDIOGRAM 2D WITH DOPPLER (08/04/2018 8:09 AM CDT) 08/04/2018 8:09 AM CDT [facility] CARDIOLOGY - 08/04/2018 2:19 PM CDT [facility] [address] [place], [place] [id number] Transthoracic Echocardiogram 2D, M-mode, Doppler, and Color Doppler Patient: YARELI MARSHALL MR number: [id number] Height: 63 in Weight: 424.2 lb BSA: 2.66 m Study date: 04-Aug-2018 : 1960 Age: 57 years Gender: Female Race: Allergies: PENICILLINS, SULFA DRUGS, TRAMADOL, CONTRAST-IODINATED AGENTS FOR CT/OTHER, [id number], IODINE, SHELLFISH, ALLERGY, SHELLFISH ALLERGY, SHELLFISH-DERIVED PRODUCTS, TRAMADOL HCL Diagnoses: R06.02 - Shortness of breath Sectionizer: ELEUTERIO Noel Referring Physician: Avelina Rodriguez MD Reading Physician: Ruth Bassett DO Summary: - Clinical question: - Shortness of breath - History: - Morbid obesity - Left ventricle: - Systolic function was normal. Ejection fraction was estimated to be 65 %. - There were no regional wall motion abnormalities. - Wall thickness was normal. - Right ventricle: - The size was normal. - Systolic function was normal. - Pulmonary arteries: - Systolic pressure was mildly increased. Estimated peak pressure was at least 35 mmHg. IVC not seen for estimation of RAP. - Tricuspid valve: - There was mild regurgitation. Indications: Shortness of breath History: Prior history: Morbid obesity Procedure: The procedure was performed at the bedside. This was a routine study. The transthoracic approach was used. The study included complete 2D imaging, M-mode, complete spectral Doppler, and color Doppler. Systolic blood pressure was 141 mmHg. Diastolic blood pressure was 83 mmHg. Intravenous contrast (Definity) was administered to opacify the left ventricle and enhance Doppler signals. This was a technically difficult study. Left ventricle: Size was normal. Systolic function was normal. Ejection fraction was estimated to be 65 %. There were no regional wall motion abnormalities. Wall thickness was normal. Doppler: Left ventricular diastolic function is probably normal. Aortic valve: The valve was trileaflet. Leaflets exhibited normal thickness and normal cuspal separation. Doppler: There was no stenosis. There was no regurgitation. Aorta: The root exhibited normal size. Mitral valve: Valve structure was normal. There was normal leaflet separation. Doppler: The transmitral velocity was within the normal range. There was no evidence for stenosis. There was no regurgitation. Left atrium: Size was normal. Right ventricle: The size was normal. Systolic function was normal. Wall thickness was normal. Pulmonic valve: Leaflets exhibited normal thickness, no calcification, and normal cuspal separation. Doppler: There was no regurgitation. Pulmonary artery: The size was normal. Doppler: Systolic pressure was mildly increased. Estimated peak pressure was at least 35 mmHg. IVC not seen for estimation of RAP. Tricuspid valve: The valve structure was normal. There was normal leaflet separation. Doppler: The transtricuspid velocity was within the normal range. There was no evidence for tricuspid stenosis. There was mild regurgitation. Right atrium: Size was normal. Systemic veins: IVC: The inferior vena cava was not well visualized. Pericardium: The pericardium was normal in appearance. System measurement tables 2D LVOT Diam: 2 cm LAAs A2C: 15.7 cm2 LAAs A4C: 18.6 cm2 LAESV A-L A2C: 44.1 ml LAESV A-L A4C: 53.2 ml LAESV Index (A-L): 19.6 ml/m2 LAESV MOD A2C: 41.2 ml LAESV MOD A4C: 51.5 ml LAESV(A-L): 52.3 ml LALs A2C: 4.8 cm IVSd: 1.2 cm LVIDd: 5 cm LVIDs: 3.1 cm LVPWd: 1.2 cm CW AV VTI: 18.7 cm AV Vmax: 1.2 m/s AV Vmean: 0.9 m/s AV maxP.1 mmHg AV meanP.5 mmHg PV Vmax: 1.2 m/s PV maxP.5 mmHg TR Vmax: 3.1 m/s MM Ao Diam: 3 cm LA Diam: 4.8 cm AV Cusp: 1.8 cm LA/Ao: 1.6 PW ADOLFO (VTI): 2.9 cm2 ADOLFO Vmax: 2.4 cm2 LVOT VTI: 17.6 cm LVOT Vmax: 1 m/s LVOT Vmean: 0.7 m/s LVOT maxP.9 mmHg LVOT meanP.1 mmHg MV E/A Ratio: 1.1 MV PHT: 65.3 ms SEPTAL E': 0.1 m/s SEPTAL E/E': 4.7 Prepared and signed by Ruth Bassett DO Signed 04-Aug-2018 14:19:04 Procedure Note Ruth Bassett DO - 08/04/2018 [place] [id number] Transthoracic Echocardiogram 2D, M-mode, Doppler, and Color Doppler Patient: YARELI MARSHALL MR number: [id number] Height: 63 in Weight: 424.2 lb BSA: 2.66 m Study date: 04-Aug-2018 : 1960 Age: 57 years Gender: Female Race: Allergies: PENICILLINS, SULFA DRUGS, TRAMADOL, CONTRAST-IODINATED AGENTS FOR CT/OTHER, [id number], IODINE, SHELLFISH, ALLERGY, SHELLFISH ALLERGY, SHELLFISH-DERIVED PRODUCTS, TRAMADOL HCL Diagnoses: R06.02 - Shortness of breath Sectionizer: ELEUTERIO Noel Referring Physician: Avelina Rodriguez MD Reading Physician: Ruth Bassett DO Summary: - Clinical question: - Shortness of breath - History: - Morbid obesity - Left ventricle: - Systolic function was normal. Ejection fraction was estimated to be 65 %. - There were no regional wall motion abnormalities. - Wall thickness was normal. - Right ventricle: - The size was normal. - Systolic function was normal. - Pulmonary arteries: - Systolic pressure was mildly increased. Estimated peak pressure was at least 35 mmHg. IVC not seen for estimation of RAP. - Tricuspid valve: - There was mild regurgitation. Indications: Shortness of breath History: Prior history: Morbid obesity Procedure: The procedure was performed at the bedside. This was a routine study. The transthoracic approach was used. The study included complete 2D imaging, M-mode, complete spectral Doppler, and color Doppler. Systolic blood pressure was 141 mmHg. Diastolic blood pressure was 83 mmHg. Intravenous contrast (Definity) was administered to opacify the left ventricle and enhance Doppler signals. This was a technically difficult study. Left ventricle: Size was normal. Systolic function was normal. Ejection fraction was estimated to be 65 %. There were no regional wall motion abnormalities. Wall thickness was normal. Doppler: Left ventricular diastolic function is probably normal. Aortic valve: The valve was trileaflet. Leaflets exhibited normal thickness and normal cuspal separation. Doppler: There was no stenosis. There was no regurgitation. Aorta: The root exhibited normal size. Mitral valve: Valve structure was normal. There was normal leaflet separation. Doppler: The transmitral velocity was within the normal range. There was no evidence for stenosis. There was no regurgitation. Left atrium: Size was normal. Right ventricle: The size was normal. Systolic function was normal. Wall thickness was normal. Pulmonic valve: Leaflets exhibited normal thickness, no calcification, and normal cuspal separation. Doppler: There was no regurgitation. Pulmonary artery: The size was normal. Doppler: Systolic pressure was mildly increased. Estimated peak pressure was at least 35 mmHg. IVC not seen for estimation of RAP. Tricuspid valve: The valve structure was normal. There was normal leaflet separation. Doppler: The transtricuspid velocity was within the normal range. There was no evidence for tricuspid stenosis. There was mild regurgitation. Right atrium: Size was normal. Systemic veins: IVC: The inferior vena cava was not well visualized. Pericardium: The pericardium was normal in appearance. System measurement tables 2D LVOT Diam: 2 cm LAAs A2C: 15.7 cm2 LAAs A4C: 18.6 cm2 LAESV A-L A2C: 44.1 ml LAESV A-L A4C: 53.2 ml LAESV Index (A-L): 19.6 ml/m2 LAESV MOD A2C: 41.2 ml LAESV MOD A4C: 51.5 ml LAESV(A-L): 52.3 ml LALs A2C: 4.8 cm IVSd: 1.2 cm LVIDd: 5 cm LVIDs: 3.1 cm LVPWd: 1.2 cm CW AV VTI: 18.7 cm AV Vmax: 1.2 m/s AV Vmean: 0.9 m/s AV maxP.1 mmHg AV meanP.5 mmHg PV Vmax: 1.2 m/s PV maxP.5 mmHg TR Vmax: 3.1 m/s MM Ao Diam: 3 cm LA Diam: 4.8 cm AV Cusp: 1.8 cm LA/Ao: 1.6 PW ADOLFO (VTI): 2.9 cm2 ADOLFO Vmax: 2.4 cm2 LVOT VTI: 17.6 cm LVOT Vmax: 1 m/s LVOT Vmean: 0.7 m/s LVOT maxP.9 mmHg LVOT meanP.1 mmHg MV E/A Ratio: 1.1 MV PHT: 65.3 ms SEPTAL E': 0.1 m/s SEPTAL E/E': 4.7 Prepared and signed by Ruth Bassett DO Signed 04-Aug-2018 14:19:04 Avelina Rodriguez MD ECHO ORDERABLES [facility] [address] [place] [id number] * VAS BILATERAL VENOUS DUPLEX LE (08/03/2018 9:53 AM CDT) Anatomical Region Laterality Modality Ultrasound 08/03/2018 9:14 AM CDT Narrative Procedure Note Maykel Lancaster MD - 08/03/2018 [facility] [address] [place] [address] Lower Extremity Venous Ultrasound Report Pat.Name: JOANNA YARELI Lynn Pat.ID: [id number] .Date: 08/03/2018 Refer.MD: janette Bryson Exam Time: 9:14:00 AM Study Type:LE Venous Age: 8 1960,57Y Sex: FEMALE Sonogrphr: Jozef Husain RVT Pat. Stat.:Inpatient ICD - 9: R79.89 CPT - 4: 25832 Reason for Study: + D-Dimer History / Clinical: Hypertension, Diabetes, Obesity, Limb pain at rest Procedures: Lower Extremity Venous - Bilateral Race: 1 Visit ID: [id number] ++++++++++++++++++++++++++++++++++++ SUMMARY: ++++++++++++++++++++++++++++++++++++ No evidence of deep or superficial venous thrombosis of either the right or the left lower extremity is seen. ++++++++++++++++++++++++++++++++++++ FINDINGS: ++++++++++++++++++++++++++++++++++++ Procedure: Venous duplex imaging of both lower extremities was performed using color flow and spectral Doppler analysis. Study Quality: Technically difficult exam due to body habitus. Bilateral: All vessels seen appear patent and compressible. There was spontaneous and phasic flow seen in the common femoral and femoral veins of both lower extremities. Appropriate augmentation with distal compression. No evidence of reflux with proximal compression. Signed 08/03/2018 05:55 PM Maykel Lancaster MD Janette Bryson MD VASCULAR LAB ORDERABLES * (ABNORMAL) RENAL FUNCTION PANEL (08/03/2018 4:20 AM CDT) Glucose 115(H) 74 - 106 mg/dL 08/03/2018 6:00 AM [facility] Sodium 139 136 - 145 mmol/L 08/03/2018 6:00 AM T [facility] Potassium 4.1 3.5 - 5.1 mmol/L 08/03/2018 6:00 AM [facility] Chloride 104 98 - 107 mmol/L 08/03/2018 6:00 AM T [facility] CO2 27 22 - 31 mmol/L 08/03/2018 6:00 AM [facility] Calcium 9.0 8.5 - 10.1 mg/dL 08/03/2018 6:00 AM [facility] Anion Gap 8 8 - 16 mmol/L 08/03/2018 6:00 AM [facility] BUN 28(H) 7 - 21 mg/dL 08/03/2018 6:00 AM [facility] Creatinine 0.77 0.50 - 1.30 mg/dL 08/03/2018 6:00 AM T [facility] Albumin 3.5 3.4 - 5.0 gm/dL 08/03/2018 6:00 AM [facility] Phosphorus 4.3 2.5 - 4.9 mg/dL 08/03/2018 6:00 AM CDT [facility] eGFR by MDRD >60 >60 mL/min/1.7 3m2 08/03/2018 6:00 AM CDT [facility] eGFR by MDRD >60 >60 mL/min/1.7 3m2 08/03/2018 6:00 AM CDT [facility] Blood BLOOD SPECIMEN / Unknown Lab Venipuncture / Unknown 08/03/2018 4:20 AM CDT 08/03/2018 4:55 AM CDT Janette Bryson MD LAB - LOOM STARTER RY ORDERABLES [facility] [address] [place] [address] * CT CHEST PE (08/02/2018 12:12 PM CDT) Anatomical Region Laterality Modality Chest Computed Tomogra phy 08/02/2018 12:1 9 PM CDT Impressions 08/02/2018 12:24 PM CDT No pulmonary embolism or pneumonia. No significant chest findings Reading Radiologist: Anam Caraballo MD on 08/02/2018 at 12:24 PM Narrative 08/02/2018 12:[address] angiogram chest with contrast DATE: 08/02/2018. INDICATION: Shortness of breath and cough. TECHNIQUE: Multidetector enhanced chest CT angiography utilizing 100 cc of Isovue-370 intravenously with multiplanar and MIP reformations. Patient was premedicated prior to contrast due to prior adverse reaction. COMPARISONS: None. FINDINGS: Overall exam quality is good for evaluating the pulmonary arteries. There are no intraluminal filling defects to indicate pulmonary embolus. There is no pneumonia or mass. No pleural effusion. Incidental azygos lobe. The left ventricle is upper limits of normal in size. The left atrium is slightly enlarged. There is no pericardial effusion. No mediastinal or axillary adenopathy. The thoracic aorta is normal in size and enhancement and the arch vessels are patent. The liver appears fatty but is not enlarged. The bony thorax is normal except except for incidental spurs. Procedure Note Anam Caraballo MD - 08/02/2018 CT angiogram chest with contrast DATE: 08/02/2018. INDICATION: Shortness of breath and cough. TECHNIQUE: Multidetector enhanced chest CT angiography utilizing 100 cc of Isovue-370 intravenously with multiplanar and MIP reformations. Patient was premedicated prior to contrast due to prior adverse reaction. COMPARISONS: None. FINDINGS: Overall exam quality is good for evaluating the pulmonary arteries. There are no intraluminal filling defects to indicate pulmonary embolus. There is no pneumonia or mass. No pleural effusion. Incidental azygos lobe. The left ventricle is upper limits of normal in size. The left atrium is slightly enlarged. There is no pericardial effusion. No mediastinal or axillary adenopathy. The thoracic aorta is normal in size and enhancement and the arch vessels are patent. The liver appears fatty but is not enlarged. The bony thorax is normal except except for incidental spurs. IMPRESSION No pulmonary embolism or pneumonia. No significant chest findings Reading Radiologist: Anam Caraballo MD on 08/02/2018 at 12:24 PM [address] Estrada MD CT ORDERABLES * LACTIC ACID BLOOD (08/01/2018 10:42 PM DOCUMENTATION COORDINATOR) Only the most recent of3 resultswithin the time period is included. Pathologist [facility] Lactic Acid 1.4 0.7 - 2.1 mmol/L 08/01/2018 11:05 PM DOCUMENTATION COORDINATOR [facility] Blood BLOOD SPECIMEN / Unknown Venipuncture / Unknown 08/01/2018 10:42 PM DOCUMENTATION COORDINATOR 08/01/2018 10:46 PM DOCUMENTATION COORDINATOR Susy Estrada MD LAB - CHEMISTRY TRICIA CUMMINGS [facility] Organization Address City/State/ZIP Co de Phone Number [facility] [address] [place] [address] * INFLUENZA A+B ANTIGEN RAPID (08/01/2018 9:06 PM DOCUMENTATION COORDINATOR) Pathologist [facility] Influenza A Antigen Negative Negative 08/01/2018 9:29 PM DOCUMENTATION COORDINATOR [facility] Influenza B Antigen Negative Negative 08/01/2018 9:29 PM DOCUMENTATION COORDINATOR [facility] Microbiology SPECIMEN FROM NASOPHARYNGEAL STRUCTURE / Unknown Collection / Unknown 08/01/2018 9:06 PM DOCUMENTATION COORDINATOR 08/01/2018 9:16 PM DOCUMENTATION COORDINATOR Narrative [facility] - 08/01/2018 9:29 PM DOCUMENTATION COORDINATOR The sensitivity of rapid tests for influenza A and B antigens, according to the published reports , ranges from 30-70% when compared to PCR and viral culture. For H1N1 influenza A, the sensitivity varies from 30-50%. For other influenza A strains, the sensitivity ranges from 50-70%. For influenza B virus, the sensitivity is approximately 30%. A negative result does not exclude influenza infection. False-positive (and true-negative) influenza test results are more likely to occur when disease prevalence is low, which is generally at the beginning and end of the influenza season. False-negative (and true-positive) influenza test results are more likely to occur when disease prevalence is high, which is typically at the height of the influenza season. Susy Estrada MD LAB - MICROBIOLOGY O RDERABLES Performing Organization Address City/State/[facility] Co de Phone Number [facility] [address] [phone] * (ABNORMAL) D-DIMER (08/01/2018 9:06 PM DOCUMENTATION COORDINATOR) D-Dimer 0.75(H) 0.17 - 0.5 mg/L FEU 08/01/2018 9:28 PM [facility] Blood BLOOD SPECIMEN / Unknown Venipuncture / Unknown 08/01/2018 9:06 PM DOCUMENTATION COORDINATOR 08/01/2018 9:16 PM DOCUMENTATION COORDINATOR Narrative [facility] - 08/01/2018 9:28 PM DOCUMENTATION COORDINATOR The [employer] D-Dimer assay is intended for use as an aid in diagnosis of venous thromboembolism [(VTE): deep vein thrombosis (DVT), pulmonary embolism (PE), and disseminated intravascular coagulation (DIC)], and has received U.S. Food and Drug Administration (FDA) approval to exclude VTE in patients with low or moderate pretest probability of PE or DVT (per Wells' rules). At a clinical cut-off value 0.50 mg/L FEU, the Negative Predictive Value of this assay is 99.8% for excluding PE and 100% for excluding DVT. A very low percentage of patients with VTE may yield D-Dimer results below the cut-off value. An elevated D-Dimer result has low specificity (40.4% for PE, 35.5% for DVT) and is a poor predictor of VTE. An elevated D-Dimer result may indicate DIC in the appropriate clinical setting. Results of this test should always be interpreted in conjunction with the patient's medical history, clinical presentation, and other findings. Susy Estrada MD LAB - COAGULATION OR DERABLES Performing Organization Address City/[facility]/ZIP Co de Phone Number [facility] [address] [place] [address] * CULTURE WOUND+GRAM STAIN (07/16/2018 6:19 PM DOCUMENTATION COORDINATOR) Culture Light normal skin jonathan FERNANDO 07/20/2018 1:44 PM DOCUMENTATION COORDINATOR [facility]CRO[facility] Gram Stain No organisms seen 019 1:44 PM DOCUMENTATION COORDINATOR [facility] MICRO[facility] Gram Stain No polymorphonuclear cells 07/20/2018 1:44 PM DOCUMENTATION COORDINATOR [facility] MICRO[facility]OLOGY Microbiology ENTIRE THIGH / Unknown Collection / Unknown 07/16/2018 6:19 PM DOCUMENTATION COORDINATOR 07/16/2018 6:24 PM DOCUMENTATION COORDINATOR Raj العراقي MD LAB - MICROBIOL OGY ORDERABLES Performing Organization Address [facility]/ZIP Co de Phone Number [facility] MICROBIOLOGY [address] [place] [address], [facility] [phone] * URINE MICROSCOPIC ONLY REFLEX TO CULTURE (07/16/2018 6:07 PM DOCUMENTATION COORDINATOR) Only the most recent of2 resultswithin the time period is included. Reflex Status Culture to follow 07/16/2018 6:19 PM [facility] RBC UA 3-5 None Seen, 0-2, 3-5 # /hpf 07/16/2018 6:19 PM DOCUMENTATION COORDINATOR [facility] WBC UA 0-5 None Seen, 0-5 # /hpf 07/16/2018 6:19 PM DOCUMENTATION COORDINATOR [facility] Bacteria UA None Seen None Seen 07/16/2018 6:19 PM DOCUMENTATION COORDINATOR [facility] Squamous Epithelial Cells 0-2 None Seen, 0-2, 3-5 /hpf 07/16/2018 6:19 PM DOCUMENTATION COORDINATOR [facility] Mucus UA 1+ /LPF 07/16/2018 6:19 PM [facility] Urine URINE SPECIMEN OBTAINED BY CLEAN CATCH PROCEDURE / Unknown Collection / Unknown 07/16/2018 6:07 PM DOCUMENTATION COORDINATOR 07/16/2018 6:[address] [facility] Narrative [facility] - 07/16/2018 6:19 PM DOCUMENTATION COORDINATOR Nichole Lawrence PICTURE FRAME MAKER-CERTIFIED MEDICAL AIDE LAB - URINAL YSIS ORDERABLES [facility] [address] [place] [address] * (ABNORMAL) URINALYSIS REFLEX MICROSCOPIC REFLEX CULTURE (07/16/2018 6:07 PM DOCUMENTATION COORDINATOR) Only the most recent of4 resultswithin the time period is included. Color UA Yellow Straw, Yellow 07/16/2018 6:18 PM [facility] Clarity UA Clear Clear 07/16/2018 6:18 PM [facility] Glucose UA Negative Negative 07/16/2018 6:18 PM [facility] Bilirubin UA Negative Negative 07/16/2018 6:18 PM [facility] Ketone UA Negative Negative 07/16/2018 6:18 PM [facility] Specific [place] UA 1.024 1.005 - 1.030 07/16/2018 6:18 PM [facility] Blood UA Negative Negative 07/16/2018 6:18 PM [facility] pH UA 5.0 5.0 - 8.0 pH 07/16/2018 6:18 PM [facility] Protein UA Negative Negative 07/16/2018 6:18 PM [facility] Urobilinogen UA Negative Negative mg/dL 07/16/2018 6:18 PM [facility] Nitrite UA Negative Negative 07/16/2018 6:18 PM [facility] Leukocyte UA Trace(A) Negative 07/16/2018 6:18 PM [facility] Urine Microscopy Urine microscopy to follow 07/16/2018 6:18 PM [facility] Reflex Status Culture to follow 07/16/2018 6:18 PM [facility] Urine URINE SPECIMEN OBTAINED BY CLEAN CATCH PROCEDURE / Unknown Collection / Unknown 07/16/2018 6:07 PM DOCUMENTATION COORDINATOR 07/16/2018 6:[address] [facility] Narrative [facility] - 07/16/2018 6:18 PM DOCUMENTATION COORDINATOR Ascorbic Acid can cause false negative urine strip tests for blood, glucose, nitrite, and bilirubin. Nichole Lawrence APRN-CERTIFIED MEDICAL AIDE LAB - URINAL YSIS ORDERABLES Performing Organization Address [facility] Co de Phone Number [facility] [address] [place] [address] * CULTURE URINE (07/16/2018 6:07 PM DOCUMENTATION COORDINATOR) Only the most recent of2 resultswithin the time period is included. [facility] Culture Urine <10,000 CFU/mL urogenital jonathan FERNANDO 07/18/2018 6:35 AM DOCUMENTATION COORDINATOR [facility] MICROBIOLOGY Urine URINE SPECIMEN OBTAINED BY CLEAN CATCH PROCEDURE / Unknown Collection / Unknown 07/16/2018 6:07 PM DOCUMENTATION COORDINATOR 07/16/2018 6:12 PM DOCUMENTATION COORDINATOR Nichole Lawrence APRN-CERTIFIED MEDICAL AIDE LAB - MICROB IOLOGY ORDERABLES Performing Organization Address [facility] Co de Phone Number [facility] [address] [phone] * TYPE + SCREEN PANEL (07/16/2018 3:28 PM DOCUMENTATION COORDINATOR) [facility] ABO A 07/16/2018 4:27 PM DOCUMENTATION COORDINATOR [facility] Rh Type Negative 07/16/2018 4:27 PM DOCUMENTATION COORDINATOR [facility] Comment:History checked. Col lect retype. Antibody Screen Negative 07/16/2018 4:27 PM DOCUMENTATION COORDINATOR [facility] Blood Bank BLOOD SPECIMEN / Unknown Venipuncture / Unknown 07/16/2018 3:28 PM DOCUMENTATION COORDINATOR 07/16/2018 3:34 PM DOCUMENTATION COORDINATOR Edwar Mayers PA-C LAB - BLOOD BANK OR DERABLES Performing Organization Address [facility] Co de Phone Number [facility] [address] [place], [place] [address] [phone] * VITAMIN B1 (03/24/2017 11:40 AM CDT) [facility] Vitamin B1 Whole Blood 128.7 66.5 - 200.0 nmol/L 03/30/2017 3:07 PM DOCUMENTATION COORDINATOR [facility] ([facility]) Comment: This test was developed and [facility] performance characteristics [facility] It has not been cleared or approved by the Food and Drug Administration. Blood BLOOD SPECIMEN / Unknown Venipuncture / Unknown 03/24/2017 11:40 AM CDT 03/24/2017 12:00 PM CDT Narrative [facility] ([facility]) - 03/30/2017 3:07 PM DOCUMENTATION COORDINATOR Performed at: [address] - [address] [id number] Tank Tender: Raj Bocanegra MD, Phone: [phone] Myriam Fredrick Pascual LAB - CHEMISTRY CONSUELOPauline GRAYSONSHANNA Performing Organization Address City/[facility] Co de Phone Number [facility] ([facility]) [address] [place] [address] * VITAMIN B12 (03/24/2017 11:40 AM CDT) Only the most recent of2 resultswithin the time period is included. Vitamin B12 844 211 - 911 pg/mL 03/24/2017 12:47 PM CDT [facility] Blood BLOOD SPECIMEN / Unknown Venipuncture / Unknown 03/24/2017 11:40 AM CDT 03/24/2017 12:00 PM CDT Myriam Pascual LAB - CHEMISTRY CONSUELOPauline GRAYSONSHANNA Performing Organization Address City/[facility]/ZIP Co de Phone Number [facility] [address] [place] [address] * HELICOBACTER PYLORI UREASE (STL) (03/07/2017 10:05 AM CDT) Helicobacter pylori Urease Initial Negative Negative 03/08/2017 2:44 PM CDT [facility] Helicobacter pylori Urease Final Negative Negative 03/08/2017 2:44 PM CDT [facility] Comment:This is an appended report. These results have been appended to a previously preliminary verified report. Microbiology GASTRIC ANTRAL BIOPSY SPECIMEN / Unknown Collection / Unknown 03/07/2017 10:05 AM CDT 03/07/2017 12:05 PM CDT Buddy Mcleod MD LAB - MICROBIOLOGY O RDERABLES [facility] [address] [place] [address] * US ABDOMEN LIMITED (02/05/2017 11:37 AM CDT) Only the most recent of2 resultswithin the time period is included. Anatomical Region Laterality Modality Abdomen Ultrasound 02/05/2017 11:4 3 AM CDT Impressions 02/05/2017 11:58 AM CDT Cholelithiasis. Edited by Lizet Maloney on 02/05/2017 11:58 AM Narrative 02/05/2017 11:58 AM CDT ULTRASOUND ABDOMEN HISTORY: Right upper quadrant pain. Images show an unremarkable pancreas. Liver is large and echogenic suggesting fatty change. Portal vein and hepatic veins are patent. Common duct is 4 mm. Gallbladder contains stones. The wall is not grossly thickened. Right kidney is unremarkable. Procedure Note Pedro Pablo Tavarez MD - 02/05/2017 ULTRASOUND ABDOMEN HISTORY: Right upper quadrant pain. Images show an unremarkable pancreas. Liver is large and echogenic suggesting fatty change. Portal vein and hepatic veins are patent. Common duct is 4 mm. Gallbladder contains stones. The wall is not grossly thickened. Right kidney is unremarkable. IMPRESSION Cholelithiasis. Edited by Lizet Maloney on 02/05/2017 11:58 AM Buddy Mcleod MD US ORDERABLES * PATHOLOGY/GENETICS HISTORICAL-ONBASE (02/28/2016) Only the most recent of4 resultswithin the time period is included. 02/28/2016 Swetha Bernstein MD LAB - CHEMISTRY [facility]IA [facility] [address] [place] [address], [facility] * PAP LB CT+GC (02/28/2016 12:00 AM CDT) Only the most recent of2 resultswithin the time period is included. Chlamydia/N. gonnorrhoeae DNA SDA PAP Accession No: [id number] Specimen: ThinPrep Reference: [id number] Test: Chlamydia Trachomatis/Neis seria Gonorrhoeae, Nucleic Acid Amplification Test Interpretation: Chlamydia trachomatis: Not Detected Neisseria gonorrhoeae: Not Detected Reference Range: Not Detected (Both) Comment: This analysis was performed using an U.S. FDA approved test methodology (Gen-Probe Aptima Combo 2). Test performed at [facility], [address] [place] [address] This case has been personally reviewed and interpreted by the attending (teaching) pathologist. Final Diagnosis performed by Williams Palmer PHD. Electronically signed 03/01/2016 [facility] ([facility]) 02/28/2016 02/29/2016 1:0 9 PM CDT Swetha Bernstein MD LAB - PATHOLOGY/CYTO LOGY ORDERABLES [facility] ([facility]) * LAB (02/13/2016) Only the most recent of2 resultswithin the time period is included. Buddy Mcleod MD SCANNING ONLY * US ABD LIMITED W DOPPL (10/19/2015) Anatomical Region Laterality Modality Abdomen Ultrasound Buddy Mcleod MD US ORDERABLES * CT ABD/PELVIS STONE PROTOCOL (05/22/2015 10:06 PM DOCUMENTATION COORDINATOR) Anatomical Region Laterality Modality Abdomen Computed Tomogra phy 05/23/2015 7:02 AM DOCUMENTATION COORDINATOR Impressions 05/23/2015 7:06 AM DOCUMENTATION COORDINATOR No evidence of bowel obstruction. Normal appendix. Colonic diverticulosis. Hepatic steatosis. Preliminary report was provided by [employer]. Narrative 05/23/2015 7:06 AM DOCUMENTATION COORDINATOR Examination: CT of the abdomen and pelvis without contrast History: Right lower quadrant abdominal pain Findings: CT of the abdomen and pelvis was performed without intravenous contrast due to a reported contrast allergy. Comparison is made to 01/13/2014. Images through the lung bases demonstrate no pneumonic consolidation, pleural effusion, or pneumothorax. There is no pericardial effusion. Hepatic steatosis is noted. Gallbladder is normal. The spleen is normal. The adrenal glands are normal. There is no peripancreatic stranding. There is no hydronephrosis or renal calculus. Urinary bladder is normal. There is no free fluid in the pelvis. Sigmoid colonic diverticulosis is noted. The appendix is normal. There is no evidence of small bowel obstruction. There is no suspicious osseous lytic or blastic lesion. Procedure Note Edgar Freitas MD - 05/23/2015 Examination: CT of the abdomen and pelvis without contrast History: Right lower quadrant abdominal pain Findings: CT of the abdomen and pelvis was performed without intravenous contrast due to a reported contrast allergy. Comparison is made to 01/13/2014. Images through the lung bases demonstrate no pneumonic consolidation, pleural effusion, or pneumothorax. There is no pericardial effusion. Hepatic steatosis is noted. Gallbladder is normal. The spleen is normal. The adrenal glands are normal. There is no peripancreatic stranding. There is no hydronephrosis or renal calculus. Urinary bladder is normal. There is no free fluid in the pelvis. Sigmoid colonic diverticulosis is noted. The appendix is normal. There is no evidence of small bowel obstruction. There is no suspicious osseous lytic or blastic lesion. IMPRESSION No evidence of bowel obstruction. Normal appendix. Colonic diverticulosis. Hepatic steatosis. Preliminary report was provided by [employer]. Marleni Ko DO CT ORDERABLES * LIPASE BLOOD (05/22/2015 4:36 PM DOCUMENTATION COORDINATOR) Lipase 177 10 - 220 U/L 05/22/2015 4:57 PM DOCUMENTATION COORDINATOR [facility] Blood BLOOD SPECIMEN / Unknown Venipuncture / Unknown 05/22/2015 4:36 PM DOCUMENTATION COORDINATOR 05/22/2015 4:40 PM DOCUMENTATION COORDINATOR Marleni Ko DO LAB - CHEMISTRY TRICIA CUM[facility] [address] [place], [place] [id number] * XR LUMBAR SPINE TRAUMA 2 OR 3 VW (01/15/2015 11:24 AM CDT) Anatomical Region Laterality Modality Spine Radiographic Karolina ging 01/15/2015 11:5 6 AM CDT Impressions 01/15/2015 11:57 AM CDT Marked facet 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 Narrative 01/15/2015 11:57 AM CDT LUMBOSACRAL SPINE, THREE VIEWS HISTORY: Pain. COMPARISON: None. FINDINGS: There is grade 1 anterolisthesis of L4 on L5 with otherwise normal alignment. Vertebral body heights are maintained. Marked facet degenerative changes are present in the lower lumbar spine. Mild degenerative endplate changes are also seen. Procedure Note Jerrica Mariscal MD - 01/15/2015 LUMBOSACRAL SPINE, THREE VIEWS HISTORY: Pain. COMPARISON: None. FINDINGS: There is grade 1 anterolisthesis of L4 on L5 with otherwise normal alignment. Vertebral body heights are maintained. Marked facet degenerative changes are present in the lower lumbar spine. Mild degenerative endplate changes are also seen. 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 Angelina DUFFY [facility] O RDERABLES * RHEUMATOID FACTOR BLOOD QUANTITATIVE (01/17/2014 6:10 AM CDT) [facility] Rheumatoid Factor Quantitative <10 <15 IU/mL 01/17/2014 6:40 AM CDT [facility] Comment: Blood BLOOD SPECIMEN / Unknown Lab Venipuncture / Unknown 01/17/2014 6:10 AM CDT 01/17/2014 6:14 AM CDT Zaki Lewis MD LAB - CHEMISTRY TR[facility]IA C[facility] [address] [place] [address] * CMV ANTIBODY IGM BLOOD (01/17/2014 6:10 AM CDT) Pathologist [facility] Cytomegalovirus Antibody IgM <8.0 <=29.9 AU/mL 01/18/2014 10:36 PM CDT [facility] ([facility]) Comment: INTERPRETIVE INFORMATION: Cytomegalovirus Antibody, IgM 29.9 AU/mL or Less ....... Not Detected 30.0-34.9 AU/mL........... Indeterminate-Repeat testing in 10-14 days may be helpful. 35.0 AU/mL or Greater .... Detected-IgM antibody to CMV detected which may indicate a current or recent infection. However, low levels of IgM antibodies may occasionally persist for more than 12 months post-infection. CMV serology is not useful for the evaluation of active or reactivated infection in immunocompromised patients. Molecular diagnostic tests (i.e. PCR)are preferred in these cases. Blood specimen (specimen) BLOOD SPECIMEN / Unknown Lab Venipuncture / Unknown 01/17/2014 6:10 AM CDT 01/17/2014 6:15 AM CDT Zaki Lewis MD LAB - CHEMISTRY TRICIA CUMMINGS [facility] Organization Address City/State/ZIP Co de Phone Number [facility] [employer] [facility]) [address] * CMV ANTIBODY IGG BLOOD (01/17/2014 6:10 AM CDT) Cytomegalovirus Antibody IgG <0.20 U/mL 01/18/2014 10:27 PM CDT [facility] [employer] ([facility]) Comment: INTERPRETIVE INFORMATION: Cytomegalovirus Antibody, IgG 0.59 U/mL or less......... Not Detected 0.6 - 0.69 U/mL........... Indeterminate-Repeat testing in 10-14 days may be helpful. 0.70 U/mL or greater...... Detected In immunocompromised patients, CMV serology (IgG or IgM antibody titers) may not be reliable and may be misleading in the diagnosis of acute or reactivation CMV disease. The preferred method for diagnosis is culture of virus and/or demonstration of viral antigen in peripheral white cells (buffy coat), bronchoalveolar lavage (BAL) cells, or tissue biopsies. The best evidence for current infection is a significant change on two appropriately timed specimens, where both tests are done in the same laboratory at the same time. Blood specimen (specimen) BLOOD SPECIMEN / Unknown Lab Venipuncture / Unknown 01/17/2014 6:10 AM CDT 01/17/2014 6:15 AM CDT Zaki Lewis MD LAB - CHEMISTRY TRICIA CUMMINGS [facility] [employer] ([facility]) [address] * CONCETTA BLOOD SCREEN W/REFLEX TITER (01/17/2014 6:10 AM CDT) CONCETTA Negative Negative 01/17/2014 10:34 AM CDT [facility] Blood BLOOD SPECIMEN / Unknown Lab Venipuncture / Unknown 01/17/2014 6:10 AM CDT 01/17/2014 6:14 AM CDT Zaki Lewis MD LAB - CHEMISTRY TRICIA CUM[facility]INGS [facility] [address] [place] [address] * RADHA ANTIBODY PANEL (01/17/2014 6:10 AM CDT) Pathologist [facility] [place] (RADHA) Antibody 2 0 - 40 AU/mL 01/19/2014 11:17 AM CDT [facility] ([facility]) Comment: INTERPRETIVE INFORMATION: [place] (RADHA) Ab, IgG 29 AU/mL or Less ............. Negative 30 - 40 AU/mL ................ Equivocal 41 AU/mL or Greater .......... Positive [place] antibody is very specific for systemic lupus erythematosus (SLE) but only occurs in 30-35% of SLE cases. The presence of antibodies to [place] is often associated with renal disease. SS-A Antibody 13 0 - 40 AU/mL 01/19/2014 11:17 AM CDT [facility] ([facility]) Comment: INTERPRETIVE INFORMATION: SSA (Ro) (RADHA) Ab, IgG 29 AU/mL or Less ............. Negative 30 - 40 AU/mL ................ Equivocal 41 AU/mL or Greater .......... Positive SSA (Ro) antibody is seen in 70-75% of Sjogren syndrome cases, 30-40% of systemic lupus erythematosus (SLE) and 5-10% of progressive systemic sclerosis (PSS). SS-B Antibody 1 0 - 40 AU/mL 01/19/2014 11:17 AM CDT [facility] ([facility]) Comment: INTERPRETIVE INFORMATION: SSB (La) (RADHA) Ab, IgG 29 AU/mL or Less ............. Negative 30 - 40 AU/mL ................ Equivocal 41 AU/mL or Greater .......... Positive SSB (La) antibody is seen in 50-60% of Sjogren syndrome cases and is specific if it is the only RADHA antibody present. 15-25% of patients with systemic lupus erythematosus (SLE) and 5-10% of patients with progressive systemic sclerosis (PSS) also have this antibody. STILL OPERATOR BATCH OR CONTINUOUS Antibody 0 0 - 40 AU/mL 01/19/2014 11:17 AM CDT [facility] ([facility]) Comment: INTERPRETIVE INFORMATION: Ribonucleic Protein (RADHA)Antibody, IgG 29 AU/mL or Less ............. Negative 30 - 40 AU/mL ................ Equivocal 41 AU/mL or Greater .......... Positive STILL OPERATOR BATCH OR CONTINUOUS antibody is seen in 95-100 percent of mixed connective tissue disease and is considered specific for this syndrome if other antibodies are negative; STILL OPERATOR BATCH OR CONTINUOUS is also present in 20-30 percent of systemic lupus erythematosus and 15-25 percent of progressive systemic sclerosis. STILL OPERATOR BATCH OR CONTINUOUS antigens also contain epitopes that are immunologically identical to free [place] antigens, therefore, the [place] antibody response must be considered when interpreting STILL OPERATOR BATCH OR CONTINUOUS results. Blood specimen (specimen) BLOOD SPECIMEN / Unknown Lab Venipuncture / Unknown 01/17/2014 6:10 AM CDT 01/17/2014 6:15 AM CDT Zaki Lewis MD LAB - CHEMISTRY TRICIA CUMMINGS [facility] Organization Address City/State/ZIP Co de Phone Number [facility] ([facility]) [address] [place] [address], [facility] * CYCLIC CITRUL PEPTIDE AB IGG (CCP) (01/17/2014 6:10 AM CDT) Cyclic Citrullinated Peptide Antibody IgG 4 0 - 19 Units 01/19/2014 1:24 PM CDT [facility] [employer] ([facility]) Comment: INTERPRETIVE INFORMATION: Cyclic Citrullinated Peptide Antibody, IgG 19 Units or less ................... Negative 20-39 Units ........................ Weak Positive 40-59 Units ........................ Moderate Positive 60 Units or greater ................ Strong Positive Anti-cyclic citrullinated peptide (anti-CCP), IgG antibodies are present in about 69-83 percent of patients with rheumatoid arthritis (RA) and have specificities of 93-95 percent. These autoantibodies may be present in the preclinical phase of disease, are associated with future RA development, and may predict radiographic joint destruction. Patients with weak positive results should be monitored and testing repeated. Blood specimen (specimen) BLOOD SPECIMEN / Unknown Lab Venipuncture / Unknown 01/17/2014 6:10 AM CDT 01/17/2014 6:14 AM CDT Zaki Lewis MD LAB - CHEMISTRY TRICIA CUMMINGS [facility] Organization Address City/State/ZIP Co de Phone Number [facility] ([facility]) [address] [place] [address], [facility] * PATHOLOGY PERIPHERAL SMEAR REVIEW (01/17/2014 6:10 AM CDT) Only the most recent of2 resultswithin the time period is included. Pathologist [facility] Case Report Pathology Interpretation Report Case: [id number] Authorizing Provider: Jas Peters MD Collected: 01/17/2014 06:10 AM Ordering Location: [address] [address] Received: 01/17/2014 06:22 AM Pathologist: Ayaan Armenta MD Specimen: Blood 01/17/2014 1:15 PM CDT [facility] Peripheral Smear Description No morphologic abnormality. 01/17/2014 1:15 PM CDT [facility] Testing Performed By [facility] at [facility]. 01/17/2014 1:15 PM CDT [facility] Blood BLOOD SPECIMEN / Unknown Lab Venipuncture / Unknown 01/17/2014 6:10 AM CDT 01/17/2014 6:22 AM CDT Jas Peters MD LAB - PATHOLOG Y/CYTOLOGY ORDERABLES [facility] [address] [place] [id number] * (ABNORMAL) LDH BLOOD (01/17/2014 6:10 AM CDT) [facility] LDH 417(H) 100 - 200 U/L 01/17/2014 6:40 AM CDT [facility] Comment: Blood BLOOD SPECIMEN / Unknown Lab Venipuncture / Unknown 01/17/2014 6:10 AM CDT 01/17/2014 6:14 AM CDT Zaki Lewis MD LAB - CHEMISTRY TRICIA CUMMINGS Performing Organization Address City/[facility] Co de Phone Number [facility] [address] [place] [id number] * HEPATITIS BE ANTIBODY (01/17/2014 6:10 AM CDT) [facility] Hepatitis Be Antibody Negative Negative 01/19/2014 12:56 PM CDT [employer] ([facility]) Blood specimen (specimen) BLOOD SPECIMEN / Unknown Lab Venipuncture / Unknown 01/17/2014 6:10 AM CDT 01/17/2014 6:14 AM CDT Zaki Lewis MD LAB - CHEMISTRY TRICIA CUMMINGS [employer] ([facility]) [address] * HEPATITIS C ANTIBODY (01/17/2014 6:10 AM CDT) [facility] HCV Antibody Screen Non Reactive Non Reactive 01/17/2014 7:49 AM CDT [facility] Blood BLOOD SPECIMEN / Unknown Lab Venipuncture / Unknown 01/17/2014 6:10 AM CDT 01/17/2014 6:14 AM CDT Narrative [facility] - 01/17/2014 7:49 AM CDT Nonreactive - Antibodies to HCV were not detected, result does not exclude early acute HCV infection. Zaki Lewis MD LAB - CHEMISTRY TRICIA CUMMINGS Performing Organization Address City/[facility]/ZIP Co de Phone Number [facility] [address] [place] [address] * (ABNORMAL) DIFFERENTIAL MANUAL (01/16/2014 8:14 AM CDT) Only the most recent of5 resultswithin the time period is included. WBC Auto 5.8 x10^9/L 01/16/2014 9:57 AM CDT [facility] Neutrophil % Manual 24(L) 44 - 73 % 01/16/2014 9:57 AM CDT [facility] Lymphocytes % Manual 47(H) 20 - 43 % 01/16/2014 9:57 AM CDT [facility] Monocytes % Manual 12 5 - 13 % 01/16/2014 9:57 AM CDT [facility] Basophils % Manual 1 0 - 2 % 01/16/2014 9:57 AM CDT [facility] Atypical Lymphocyte % Manual 4(H) <=0 % 01/16/2014 9:57 AM CDT [facility] Band % Manual 10 0 - 11 % 01/16/2014 9:57 AM CDT [facility] [place] Manual 2(H) <=0 % 01/16/2014 9:57 AM T [facility] Cells Counted 100 # cells 01/16/2014 9:57 AM CDT [facility] RBC Morphology Normal 01/16/2014 9:57 AM CDT [facility] WBC Morph Normal 01/16/2014 9:57 AM CDT [facility] Blood BLOOD SPECIMEN / Unknown Lab Venipuncture / Unknown 01/16/2014 8:14 AM CDT 01/16/2014 8:59 AM CDT Jas Peters MD LAB - HEMATOLO GY ORDERABLES Performing Organization Address City/[facility]/ZIP Co de Phone Number [facility] [address] [place] [address] * NUC HEPATOBILIARY SCAN (01/14/2014 3:55 PM CDT) Anatomical Region Laterality Modality Abdomen Nuclear Medicine 01/14/2014 3:44 PM CDT Impressions 01/14/2014 5:09 PM CDT 1. Delayed gallbladder filling with subtle linear area of uptake in the region of the gallbladder fossa at 240 minutes post-injection. Findings may represent bowel activity versus gallbladder. Acute cholecystitis is not definitively excluded. 2. Reduced hepatocellular function. Narrative 01/14/2014 5:09 PM CDT Hepatobiliary scan with pharmacologic intervention. HISTORY: 53-year-old female presenting with abdominal pain. TECHNIQUE: A dose of 5.9 mCi Tc-99m Choletec was administered intravenously. Dynamic anterior images of the abdomen were obtained for 1 hour. Additional static planar images of the abdomen were obtained up to 4 hours. FINDINGS: No prior study is available for comparison There is reduced clearance of the blood pool. Tracer activity is not well seen in biliary system up to 60 minutes. The gallbladder does not fill in the initial 60 minutes. Additional images were obtained at 90, 120, 180 and 240 minutes. There is no uptake in the gallbladder fossa up to 180 minutes. There is a subtle linear focus of uptake in the gallbladder fossa at 240 minutes which may represent delayed gallbladder uptake. Bowel activity is noted at 15 minutes post injection. Procedure Note Manasa Murillo, DO - 01/14/2014 Hepatobiliary scan with pharmacologic intervention. HISTORY: 53-year-old female presenting with abdominal pain. TECHNIQUE: A dose of 5.9 mCi Tc-99m Choletec was administered intravenously. Dynamic anterior images of the abdomen were obtained for 1 hour. Additional static planar images of the abdomen were obtained up to 4 hours. FINDINGS: No prior study is available for comparison There is reduced clearance of the blood pool. Tracer activity is not well seen in biliary system up to 60 minutes. The gallbladder does not fill in the initial 60 minutes. Additional images were obtained at 90, 120, 180 and 240 minutes. There is no uptake in the gallbladder fossa up to 180 minutes. There is a subtle linear focus of uptake in the gallbladder fossa at 240 minutes which may represent delayed gallbladder uptake. Bowel activity is noted at 15 minutes post injection. IMPRESSION 1. Delayed gallbladder filling with subtle linear area of uptake in the region of the gallbladder fossa at 240 minutes post-injection. Findings may represent bowel activity versus gallbladder. Acute cholecystitis is not definitively excluded. 2. Reduced hepatocellular function. Beba Ryan MD IN ORDERABLES * RESPIRATORY VIRUS PANEL BY PCR (01/14/2014 11:36 AM CDT) Adenovirus PCR Not detected Not detected, Invalid, Indeterminate 01/14/2014 4:14 PM CDT [facility] Human Metapneumovirus PCR Not detected Not detected, Invalid, Indeterminate 01/14/2014 4:14 PM [facility] Human Rhinovirus/Entero virus PCR Not detected Not detected, Invalid, Indeterminate 01/14/2014 4:14 PM [facility] Influenza A Non Subtyped PCR Not detected Not detected, Invalid, Indeterminate 01/14/2014 4:14 PM [facility] Influenza A H1 PCR Not detected Not detected, Invalid, Indeterminate 01/14/2014 4:14 PM [facility] Influenza A H3 PCR Not detected Not detected, Invalid, Indeterminate 01/14/2014 4:14 PM T [facility] Influenza A H1 2009 PCR Not detected Not detected, Invalid, Indeterminate 01/14/2014 4:14 PM CDT [facility] Influenza B PCR Not detected Not detected, Invalid, Indeterminate 01/14/2014 4:14 PM T [facility] Mycoplasma pneumoniae PCR Not detected Not detected, Invalid, Indeterminate 01/14/2014 4:14 PM [facility] Parainfluenza Virus 1 PCR Not detected Not detected, Invalid, Indeterminate 01/14/2014 4:14 PM T [facility] Parainfluenza Virus 2 PCR Not detected Not detected, Invalid, Indeterminate 01/14/2014 4:14 PM T [facility] Parainfluenza Virus 3 PCR Not detected Not detected, Invalid, Indeterminate 01/14/2014 4:14 PM [facility] Parainfluenza Virus 4 PCR Not detected Not detected, Invalid, Indeterminate 01/14/2014 4:14 PM T [facility] Respiratory Syncytial Virus PCR Not detected Not detected, Invalid, Indeterminate 01/14/2014 4:14 PM [facility] Bordetella pertussis PCR Not detected Not detected, Invalid 01/14/2014 4:14 PM [facility] Microbiology NASOPHARYNGEAL SWAB / Unknown Collection / Unknown 01/14/2014 11:36 AM CDT 01/14/2014 11:58 AM CDT Narrative [facility] - 01/14/2014 4:14 PM CDT The B. pertussis PCR assay detects a single-copy gene in the toxin promoter region of B. pertussis. It is less sensitive, but more specific, than PCR assays that detect the multi-copy IS481 gene. Jas Peters MD LAB - MICROBIO LOGY ORDERABLES Performing Organization Address City/[facility] Co de Phone Number [facility] [address] [place] [address], [facility] * CMV PCR (01/14/2014 11:22 AM CDT) Pathologist [facility] Cytomegalovirus PCR Not Detected 01/17/2014 10:37 PM CDT [facility] [employer] ([facility]) Comment: NOT DETECTED - A negative result does not rule out the presence of PCR inhibitors in the patient specimen or assay specific nucleic acid in concentrations below the level of detection by the assay. INTERPRETIVE INFORMATION: Cytomegalovirus Detection by PCR Test developed and characteristics determined by [employer]. See Compliance Statement A: [employer] Cytomegalovirus Source Blood 01/17/2014 10:37 PM CDT [facility] ([facility]) Blood specimen (specimen) BLOOD SPECIMEN / Unknown Lab Venipuncture / Unknown 01/14/2014 11:22 AM CDT 01/14/2014 11:36 AM CDT Jas Peters MD LAB - BODY FLU ID ORDERABLES Performing Organization Address City/[facility] Co de Phone Number [facility] [employer] [facility]) [address] * (ABNORMAL) C-REACTIVE PROTEIN (01/14/2014 4:54 AM CDT) Only the most recent of2 resultswithin the time period is included. [facility] C-Reactive Protein 3.46(H) <0.30 mg/dL 01/14/2014 5:38 AM CDT [facility] Comment: Blood BLOOD SPECIMEN / Unknown Lab Venipuncture / Unknown 01/14/2014 4:54 AM CDT 01/14/2014 5:13 AM CDT Jas Peters MD LAB - CHEMISTR Y ORDERABLES Performing Organization Address [facility] de Phone Number [facility] [address] [place] [address] * (ABNORMAL) SED RATE WESTERGREN (01/14/2014 4:54 AM CDT) Only the most recent of2 resultswithin the time period is included. Erythrocyte Sedimentation Rate Westergren 32(H) 0 - 30 mm/hr 01/14/2014 6:50 AM CDT [facility] Blood BLOOD SPECIMEN / Unknown Lab Venipuncture / Unknown 01/14/2014 4:54 AM CDT 01/14/2014 5:14 AM CDT Jas Peters MD LAB - HEMATOLO GY ORDERABLES Performing Organization Address [facility] de Phone Number [facility] [address] [place] [address] * (ABNORMAL) AMMONIA (01/14/2014 4:54 AM CDT) Ammonia 36(H) <34 umol/L 01/14/2014 5:51 AM CDT [facility] Comment: Blood BLOOD SPECIMEN / Unknown Lab Venipuncture / Unknown 01/14/2014 4:54 AM CDT 01/14/2014 5:30 AM CDT Jas Peters MD LAB - CHEMISTR Y ORDERABLES Performing Organization Address [facility] de Phone Number [facility] [address] [place] [phone] * CULTURE URINE+GRAM STAIN (01/13/2014 7:45 PM CDT) Pathologist [facility] Culture >10,000 CFU/mL multiple bacterial morphotypes present. Suggest recollection. FERNANDO 01/15/2014 8:58 AM CDT [facility] Gram Stain Light Gram positive bacilli 01/15/2014 8:58 AM CDT [facility] Gram Stain Rare Gram positive cocci 01/15/2014 8:58 AM CDT [facility] Urine URINE SPECIMEN OBTAINED BY CLEAN CATCH PROCEDURE / Unknown Collection / Unknown 01/13/2014 7:45 PM CDT 01/13/2014 8:19 PM CDT Jas Peters MD LAB - MICROBIO LOGY ORDERABLES [facility] [address] [place] [address], [facility] * URINALYSIS ROUTINE AUTO (01/13/2014 7:45 PM CDT) Color UA Yellow Straw, Yellow, Dark Yellow 01/13/2014 8:27 PM CDT [facility] Clarity UA Clear 01/13/2014 8:27 PM CDT [facility] Specific [place] UA 1.008 1.005 - 1.030 01/13/2014 8:27 PM CDT [facility] pH UA 6.5 5.0 - 8.0 pH 01/13/2014 8:27 PM CDT [facility] Protein UA Negative Negative 01/13/2014 8:27 PM CDT [facility] Blood UA Negative Negative 01/13/2014 8:27 PM CDT [facility] Leukocyte UA Negative Negative 01/13/2014 8:27 PM CDT [facility] Nitrite UA Negative Negative 01/13/2014 8:27 PM CDT [facility] Glucose UA Negative Negative 01/13/2014 8:27 PM CDT [facility] Ketone UA Negative Negative 01/13/2014 8:27 PM CDT [facility] Bilirubin UA Negative Negative 01/13/2014 8:27 PM CDT [facility] Urobilinogen UA 1.0 0.1 - 1.0 EU/dL 01/13/2014 8:27 PM CDT [facility] Urine URINE SPECIMEN OBTAINED BY CLEAN CATCH PROCEDURE / Unknown Collection / Unknown 01/13/2014 7:45 PM CDT 01/13/2014 8:19 PM CDT Jas Peters MD LAB - URINALYS IS ORDERABLES Performing Organization Address City/[facility]/ZIP Co de Phone Number [facility] [address] [place] [address] * HIV-1 HIV-2 ANTIBODY RAPID (01/13/2014 2:40 PM CDT) [facility] HIV-1/HIV-2 Rapid Antibody Non Reactive Non Reactive 01/13/2014 3:47 PM CDT [facility] Blood BLOOD SPECIMEN / Unknown Lab Venipuncture / Unknown 01/13/2014 2:40 PM CDT 01/13/2014 3:10 PM CDT Jas Peters MD LAB - CHEMISTR Y ORDERABLES [facility] [address] [place] [address] * (ABNORMAL) BARB-BAR VIRUS PANEL (01/13/2014 2:40 PM CDT) [facility] Barb-Gomez Virus Antibody IgG Early Antigen 147.0(H) 0.0 - 10.9 U/mL 01/16/2014 12:32 PM CDT [facility] [employer] ([facility]) Comment: Cross-reactivity between EBV EA(D) and Human Immunodeficiency Virus (HIV), Hepatitis A, B, and C has been documented. INTERPRETIVE INFORMATION: Barb-Gomez Virus Antibody to Early D Antigen (EA-D), IgG 8.9 U/mL or less........Not Detected 9.0-10.9 U/mL...........Indeterminate - Repeat testing in 10-14 may be helpful. 11.0 U/mL or greater....Detected Interpretive information regarding serologic features of EBV-associated diseases is available at [email or web address]. Barb-Gomez Virus Antibody IgG Viral Capsid Antigen 87.3(H) 0.0 - 21.9 U/mL 01/16/2014 12:32 PM CDT [facility] [employer] ([facility]) Comment: INTERPRETIVE INFORMATION: Barb-Gomez Virus Antibody to Viral Capsid Antigen, IgG 17.9 U/mL or less.......Not Detected 18.0-21.9 U/mL..........Indeterminate - Repeat testing in 10-14 days may be helpful. 22.0 U/mL or greater....Detected Interpretive information regarding serologic features of EBV-associated diseases is available at [email or web address]. Barb-Gomez Virus Antibody IgM Viral Capsid Antigen >160.0(H) 0.0 - 43.9 U/mL 01/16/2014 12:32 PM CDT [facility] ([facility]) Comment: INTERPRETIVE INFORMATION: Barb-Gomez Virus Antibody to Viral Capsid Antigen, IgM 35.9 U/mL or less.......Not Detected 36.0-43.9 U/mL..........Indeterminate - Repeat testing in 10-14 days may be helpful. 44.0 U/mL or greater....Detected Interpretive information regarding serologic features of EBV-associated diseases is available at [email or web address]. Barb-Gomez Virus Antibody IgG Nuclear Antigen <3.0 0.0 - 21.9 U/mL 01/16/2014 12:32 PM CDT [facility] ([facility]) Comment: INTERPRETIVE INFORMATION: Barb-Gomez Virus Antibody to Nuclear Antigen, IgG 17.9 U/mL or less.......Not Detected 18.0-21.9 U/mL..........Indeterminate - Repeat testing in 10-14 days may be helpful. 22.0 U/mL or greater....Detected Interpretive information regarding serologic features of EBV-associated diseases is available at [email or web address]. Blood specimen (specimen) BLOOD SPECIMEN / Unknown Lab Venipuncture / Unknown 01/13/2014 2:40 PM CDT 01/13/2014 3:12 PM CDT Jas Peters MD LAB - CHEMISTR Y ORDERABLES [facility] [employer] ([facility]) [address] * (ABNORMAL) PT PTT PANEL (01/13/2014 2:40 PM CDT) Only the most recent of2 resultswithin the time period is included. PT 11.5(H) 9.4 - 11.4 sec 01/13/2014 3:48 PM CDT [facility] INR 1.08(H) 0.89 - 1.07 01/13/2014 3:48 PM CDT [facility] PTT 29.1 24.0 - 33.0 sec 01/13/2014 3:48 PM CDT [facility] Blood BLOOD SPECIMEN / Unknown Lab Venipuncture / Unknown 01/13/2014 2:40 PM CDT 01/13/2014 3:13 PM CDT [facility] - 01/13/2014 3:48 PM CDT Conventional Anticoagulant Therapy INR Reference Ranges: 2.0-3.0 Intensive Anticoagulant Therapy INR Reference Ranges: 2.5-3.5 Jas Peters MD LAB - COAGULAT ION ORDERABLES Performing Organization Address [facility] de Phone Number [address] [address] * B-TYPE NATRIURETIC PEPTIDE (01/13/2014 2:40 PM CDT) BNP 44 0 - 100 pg/mL 01/13/2014 3:58 PM CDT [facility] Blood BLOOD SPECIMEN / Unknown Lab Venipuncture / Unknown 01/13/2014 2:40 PM CDT 01/13/2014 3:09 PM CDT [facility] - 01/13/2014 3:58 PM CDT A cutoff of 100 pg/ml has been demonstrated to provide the maximal combination of sensitivity, specificity, and negative predictive value for contributing to the diagnosis of congestive heart failure(CHF) only. A BNP value greater than or equal to 100 pg/ml is consistent with a diagnosis of CHF in the appropriate clinical setting. False positive results are more common in females greater than 75 years of age. Blood concentrations of natriuretic peptides may also be elevated in patients with myocardial infarction and in patients who are candidates for or are undergoing renal dialysis. Jas Peters MD LAB - CHEMISTR Y ORDERABLES Performing Organization Address [facility] Co de Phone Number [address] [address] * (ABNORMAL) FOLATE (01/13/2014 2:40 PM CDT) Folate 24.0(H) 3.1 - 17.5 ng/mL 01/13/2014 3:58 PM CDT [facility] Blood BLOOD SPECIMEN / Unknown Lab Venipuncture / Unknown 01/13/2014 2:40 PM CDT 01/13/2014 3:12 PM CDT Jas Peters MD LAB - CHEMISTR Y ORDERABLES Performing Organization Address [facility] Co de Phone Number [facility] [address] [place] [phone] * (ABNORMAL) BILIRUBIN DIRECT (01/13/2014 2:40 PM CDT) Pathologist [facility] Bilirubin Direct 1.2(H) 0 - 0.3 mg/dL 01/13/2014 3:50 PM CDT [facility] Comment: Blood BLOOD SPECIMEN / Unknown Lab Venipuncture / Unknown 01/13/2014 2:40 PM CDT 01/13/2014 3:13 PM CDT Jas Peters MD LAB - CHEMISTR Y ORDERABLES Performing Organization Address [facility] Co de Phone Number [facility] [address] [place] [address] * TSH (01/13/2014 2:40 PM CDT) Pathologist [facility] TSH 1.76 0.358 - 3.740 uIU/mL 01/13/2014 3:52 PM CDT [facility] Comment: Blood BLOOD SPECIMEN / Unknown Lab Venipuncture / Unknown 01/13/2014 2:40 PM CDT 01/13/2014 3:13 PM CDT Jas Peters MD LAB - CHEMISTR Y ORDERABLES Performing Organization Address [facility] de Phone Number [facility] [address] [place] [phone] * (ABNORMAL) T4 FREE (01/13/2014 2:40 PM CDT) Pathologist [facility] T4 Free 1.40(H) 0.65 - 1.34 ng/dL 01/13/2014 3:50 PM CDT [facility] Comment: Blood BLOOD SPECIMEN / Unknown Lab Venipuncture / Unknown 01/13/2014 2:40 PM CDT 01/13/2014 3:13 PM CDT Jas Peters MD LAB - CHEMISTR Y ORDERABLES Performing Organization Address [facility] de Phone Number [facility] [address] [place] [phone] * HEPATITIS SCREEN ACUTE (01/13/2014 2:40 PM CDT) Pathologist [facility] HAV Antibody IgM Non Reactive Non Reactive 01/13/2014 4:48 PM CDT [facility] HBsAg Non Reactive Non Reactive 01/13/2014 4:48 PM CDT [facility] HBc Antibody IgM Non Reactive Non Reactive 01/13/2014 4:48 PM CDT [facility] HCV Antibody Screen Non Reactive Non Reactive 01/13/2014 4:48 PM CDT [facility] Blood BLOOD SPECIMEN / Unknown Lab Venipuncture / Unknown 01/13/2014 2:40 PM CDT 01/13/2014 3:12 PM CDT Narrative [facility] - 01/13/2014 4:48 PM CDT Nonreactive - Antibodies to HCV were not detected, result does not exclude early acute HCV infection. aJs Peters MD LAB - CHEMISTR Y ORDERABLES Performing Organization Address [facility] de Phone Number [facility] [address] [place] [phone] * CT RENAL STONE PROTOCOL (NO IV & NO ORAL CONTRAST) (01/13/2014 8:23 AM CDT) Anatomical Region Laterality Modality Abdomen, Pelvis Computed Tomogra phy 01/13/2014 8:33 AM CDT Narrative 01/13/2014 8:[address] abdomen and pelvis History: Abdominal pain TECHNIQUE: Multiple contiguous axial to the abdomen pelvis were obtained without oral intravenous or rectal contrast. Comparison is made to 10/01/2012 There is fatty enlargement of the liver. No focal hepatic lesion is seen. The gallbladder is normal. The spleen is enlarged and measures approximately 15 cm in greatest transverse dimensions. No focal splenic lesion is seen The visualized pancreas, adrenal glands, and right kidney are grossly normal. There is likely a cyst in the upper pole the left kidney. Visualized ureters and bladder are normal. The uterus and adnexa appear unremarkable The visualized large and small bowel are normal. There is no free intraperitoneal air or fluid. There are scattered prominent retroperitoneal periaortic and right pelvic lymph nodes. A lymph node along the right external iliac lymph node chain measures up to 1.7 cm. Enlarged right inguinal lymph nodes are present measuring up to 1.7 cm. An enlarged right anterior diaphragmatic lymph node is present measuring up to 1.6 cm. These findings are new since the prior CT scan the lung bases are clear. DIAGNOSIS: There are enlarged periaortic retroperitoneal, right pelvic, right anterior diaphragmatic and right inguinal lymph nodes new since prior CT scan. The spleen is enlarged. The findings are of uncertain significance and lymphoma versus granulomatous disease are considerations and further evaluation is recommended. There is fatty enlargement liver. Procedure Note Martinez Magallanes MD - 01/13/2014 CT abdomen and pelvis History: Abdominal pain TECHNIQUE: Multiple contiguous axial to the abdomen pelvis were obtained without oral intravenous or rectal contrast. Comparison is made to 10/01/2012 There is fatty enlargement of the liver. No focal hepatic lesion is seen. The gallbladder is normal. The spleen is enlarged and measures approximately 15 cm in greatest transverse dimensions. No focal splenic lesion is seen The visualized pancreas, adrenal glands, and right kidney are grossly normal. There is likely a cyst in the upper pole the left kidney. Visualized ureters and bladder are normal. The uterus and adnexa appear unremarkable The visualized large and small bowel are normal. There is no free intraperitoneal air or fluid. There are scattered prominent retroperitoneal periaortic and right pelvic lymph nodes. A lymph node along the right external iliac lymph node chain measures up to 1.7 cm. Enlarged right inguinal lymph nodes are present measuring up to 1.7 cm. An enlarged right anterior diaphragmatic lymph node is present measuring up to 1.6 cm. These findings are new since the prior CT scan the lung bases are clear. DIAGNOSIS: There are enlarged periaortic retroperitoneal, right pelvic, right anterior diaphragmatic and right inguinal lymph nodes new since prior CT scan. The spleen is enlarged. The findings are of uncertain significance and lymphoma versus granulomatous disease are considerations and further evaluation is recommended. There is fatty enlargement liver. Roby Self MD CT ORDERABLES * CK BLOOD (01/13/2014 7:34 AM CDT) CK 43 35 - 232 U/L 01/13/2014 11:35 AM CDT [facility] Comment: Blood BLOOD SPECIMEN / Unknown Venipuncture / Unknown 01/13/2014 7:34 AM CDT 01/13/2014 10:32 AM CDT Beba Ryan MD LAB - CHEMISTRY TRICIA CUMMINGS [facility] [address] [place] [address] * TULARENSIS ANTIBODY IGG IGM PANEL (01/11/2014 9:23 PM CDT) Francisella tularensis Antibody IgG 1 <=9 U/mL 01/15/2014 2:21 AM CDT [facility] [employer] ([facility]) Comment: INTERPRETATIVE DATA: Francisella tularensis Antibody, IgG 9 U/mL or less...... Negative - No significant level of IgG antibody to Francisella tularensis detected. 10 - 15 U/mL.........Equivocal - Questionable Presence of IgG antibody to Francisella tularensis. Repeat testing in 10-14 days may be helpful. 16 U/mL or greater...Positive - Presence of IgG antibody to Francisella tularensis detected, suggestive of current or past exposure/Immunization. Cross reactivity with Brucella and Yersinia antibodies may occur. Therefore, results should be interpreted with caution and correlated with clinical information. The best evidence for current infection is a significant change on two appropriately timed specimens, where both tests are performed in the same laboratory at the same time. Test developed and characteristics determined by [employer]. See Compliance Statement D: [employer] Francisella tularensis Antibody IgM 1 <=9 U/mL 01/15/2014 2:21 AM CDT [facility] ([facility]) Comment: INTERPRETIVE DATA: Francisella tularensis Antibody, IgM 9 U/mL or less...... Negative - No significant level of IgM antibody to Francisella tularensis detected. 10 - 15 U/mL......... Equivocal - Questionable presence of IgM antibody to Francisella tularensis. Repeat testing in 10-14 days may be helpful. 16 U/mL.............. Positive - Presence of IgM antibody to Francisella tularensis detected, suggestive of current or recent exposure/Immunization. Cross reactivity with Brucella and Yersinia antibodies may occur. Therefore, results should be interpreted with caution and correlated with clinical information. The best evidence for current infection is a significant change on two appropriately timed specimens, where both tests are performed in the same laboratory at the same time. Test developed and characteristics determined by [employer]. See Compliance Statement D: [employer] Blood specimen (specimen) BLOOD SPECIMEN / Unknown Venipuncture / Unknown 01/11/2014 9:23 PM CDT 01/11/2014 9:30 PM CDT Stephen Holden MD LAB - SEROLOGY ORD ERABLES [facility]) [address], [place] [id number] [place] [address] * (ABNORMAL) BORRELIA RELAPSING FEVER PANEL (01/11/2014 9:23 PM CDT) Borellia hermsii Antibody IgG 1:64(H) 01/17/2014 8:55 PM CDT [facility] ([facility]) Borellia hermsii Antibody IgM <1:16 01/17/2014 8:55 PM CDT [facility]) Interpretation Borrelia PAST INFECTION 01/17/2014 8:55 PM CDT [facility]) Comment: REFERENCE RANGES: IgG <1:64 IgM <1:16 Single IgG titers of 1:64 and greater against Borrelia hermsii are considered presumptive evidence of infection by Borrelia. A fourfold or greater change in titer between acute and convalescent sera provides evidence of recent or current infection. Acute sera generally show specific IgM titers > or = to 1:16 while patients with manifestations of later stages of disease display elevated IgG titers only. Crossreactivity is shown with other Borrelia species and Treponema; therefore, positive specimens should be assayed in parallel against these antigens when possible to identify the specific species causing infection. This assay was developed and its performance characteristics have been determined by [employer]. It has not been cleared or approved by the U.S. Food and Drug Administration. The FDA has determined that such clearance or approval is not necessary. Performance characteristics refer to the analytical performance of the test. Performed at: [facility] [address] [place] [id number] Blood specimen (specimen) BLOOD SPECIMEN / Unknown Venipuncture / Unknown 01/11/2014 9:23 PM CDT 01/11/2014 9:30 PM CDT Stephen Holden MD LAB - SEROLOGY ORD ERABLES [employer] [facility]) [address] [place] [address], [facility] * EHRLICHIA ANTIBODY IGG/IGM PANEL (01/11/2014 9:23 PM CDT) Pathologist [facility] Ehrlichia chaffeensis Antibody IgG <1:64 <1:64 01/14/2014 8:07 AM CDT [employer] ([facility]) Comment: INTERPRETIVE INFORMATION: Ehrlichia Chaffeensis IgG Ab Less than 1:64 ....... Negative: No significant level of Ehrlichia chaffeensis IgG antibody detected. 1:64-1:128 ........... Equivocal: Questionable presence of Ehrlichia chaffeensis IgG antibody detected. Repeat testing in 10-14 days may be helpful. 1:256 or greater ..... Positive: Presence of IgG antibody to Ehrlichia chaffeensis detected, suggestive of current or past infection. Seroconversion between acute and convalescent sera is considered strong evidence of recent infection. The best evidence for infection is a significant change (fourfold difference in titer) on two appropriately timed specimens, where both tests are done in the same laboratory at the same time. Test developed and characteristics determined by [employer]. See Compliance Statement B: [employer] Ehrlichia chaffeensis Antibody IgM < 1:16 <1:16 01/14/2014 8:07 AM CDT [employer] ([facility]) Comment: INTERPRETIVE INFORMATION: Ehrlichia Chaffeensis IgM Ab Less than 1:16 ....... Negative - No significant level of Ehrlichia chaffeensis IgM antibody detected. 1:16 or greater ...... Positive - Presence of IgM antibody to Ehrlichia chaffeensis detected, suggestive of current or recent infection. While the presence of IgM antibodies suggest current or recent infection, low levels of IgM antibodies may occasionally persist for more than 12 months post-infection. A single IgM result should be interpreted with caution. Test developed and characteristics determined by [employer]. See Compliance Statement B: [employer] Blood specimen (specimen) BLOOD SPECIMEN / Unknown 01/11/2014 9:23 PM CDT 01/11/2014 9:56 PM CDT Stephen Holden MD LAB - SEROLOGY ORD ERABLES [facility] [employer] [facility]) [address] * CULTURE BLOOD (01/11/2014 9:23 PM CDT) [facility] Culture No Growth FERNANDO 01/17/2014 4:20 AM CDT [facility] Blood PERIPHERAL BLOOD / Unknown Collection / Unknown 01/11/2014 9:23 PM CDT 01/11/2014 9:32 PM CDT Stephen Holden MD LAB - MICROBIOLOGY ORDERABLES [facility] [address] * [facility] SPOTTED FEVER ANTIBODY PANEL (01/11/2014 9:23 PM CDT) Pathologist [facility] [place] Spotted Fever Antibody IgG <1:64 <1:64 01/14/2014 7:02 PM CDT [facility] ([facility]) Comment: INTERPRETIVE INFORMATION: Rickettsia rickettsii ([facility] Spotted Fever) Ab, IgG Less than 1:64: Negative - No significant level of Rickettsia rickettsii IgG Antibody detected. 1:64 - 1:128: Low Positive - Presence of Rickettsia rickettsii IgG Antibody detected, suggestive of current or past infection. 1:256 or greater: Positive - Presence of Rickettsia rickettsii IgG Antibody, suggestive of recent or current infection. The best evidence for current infection is a significant change on two appropriately timed specimens, where both tests are done in the same laboratory at the same time. [place] Spotted Fever Antibody IgM <1:64 <1:64 01/14/2014 7:02 PM CDT [facility]) Comment: [facility]ettsii [facility] Ab, IgM Less than 1:64: Negative - No significant level of Rickettsia rickettsii IgM Antibody detected. 1:64 or greater: Positive - Presence of Rickettsia rickettsii IgM Antibody detected, which may indicate a current or recent infection; however, low levels of IgM antibodies may occasionally persist for more than 12 months post-infection. The CDC does not use IgM results for routine diagnostic testing of RMSF, as the response may not be specific for the agent (resulting in false positives) and the IgM response may be persistent from past infection. Blood specimen (specimen) BLOOD SPECIMEN / Unknown Venipuncture / Unknown 01/11/2014 9:23 PM CDT 01/11/2014 9:30 PM CDT Stephen Holden MD LAB - SEROLOGY ORD ERABLES [facility]) [address] * CULTURE STREP GROUP A (12/22/2013 12:05 PM CDT) Culture Beta Strep No Growth of Groups A, C or G Beta Streptococc us. [facility] Throat swab (specimen) ENTIRE THROAT (SURFACE REGION OF NECK) / Unknown 12/22/2013 12:05 PM CDT 12/22/2013 10:25 PM CDT Narrative [facility] - 12/24/2013 2:09 PM CDT [facility]wanSpecimen#[id number] Kwan Loc/Rm/Bed: EXPCARE G// Historical Provider LAB - MICROBIOLOG Y ORDERABLES [facility] [address] [place] [address], [facility] [phone] * ENDOSCOPY, COLON, DIAGNOSTIC (10/21/2013 11:11 AM CDT) Report Endoscopy POC _ Patient Name: Yareli Marshall Procedure Date: 10/21/2013 11:11 AM Date of : 1960 Admit Type: Inpatient Age: 52 Gender: Female Attending MD: Atif Coppola MD _ Procedure: Colonoscopy Indications: Hematochezia Providers: Atif Coppola MD (Doctor), Myriam Causey RN Referring MD: Haim Saldivar MD (Referring MD) Medicines: Monitored Anesthesia Care Complications: No immediate complications. _ Procedure: Pre-Anesthesia Assessment: - ASA Grade Assessment: II - A patient with mild systemic disease. - Airway Examination: Mallampati Class I (tonsillar pillars visualized). After I obtained informed consent, the scope [...] quality of the bowel preparation was fair. Impression: - Diverticulosis. - One 6 mm polyp in the transverse colon. Resected and retrieved. - Hemorrhoids. Findings: Diverticula were found in the colon. A sessile polyp was found in the transverse colon. The polyp was 6 mm in size. The polyp was removed with a cold biopsy forceps. Resection and retrieval were complete. Estimated blood loss: none. Hemorrhoids were found. _ Recommendation: - Repeat colonoscopy in 3 - 5 years for surveillance based on pathology results. - anusol supp Procedure Code(s): --- Professional --- 92381, Colonoscopy, flexible, proximal to splenic flexure; with biopsy, single or multiple --- Technical --- 57570, Colonoscopy, flexible, proximal to splenic flexure; with biopsy, single or multiple Diagnosis Code(s): --- Professional --- 211.3, Benign neoplasm of colon 455.6, Unspecified hemorrhoids without mention of complication 578.1, Blood in stool 562.10, Diverticulosis of colon (without mention of hemorrhage) --- Technical --- 211.3, Benign neoplasm of colon 455.6, Unspecified hemorrhoids without mention of complication 578.1, Blood in stool 562.10, Diverticulosis of colon (without mention of hemorrhage) CPT copyright 2013 [employer]. All rights reserved. The codes documented in this report are preliminary and upon shingle grader review may be revised to meet current compliance requirements. Atif Coppola MD 10/21/2013 11:49 AM This report has been signed electronically. Number of Addenda: 0 Note Initiated On: 10/21/2013 11:11 AM [facility] 10/21/2013 11:1 1 AM CDT Narrative [facility] - 10/21/2013 11:51 AM CDT Procedure Note Atif Coppola MD - 10/21/2013 11:51 AM CDT Atif Coppola MD GI PROCEDURE ORDERAB LES [facility] * SLIDE SCAN HEMATOLOGY (10/20/2013 6:52 AM CDT) Platelet Estimation Normal Normal, Adequate platelets 10/20/2013 7:30 AM CDT [facility] Blood BLOOD SPECIMEN / Unknown 10/20/2013 6:52 AM CDT 10/20/2013 6:58 AM CDT [facility] PICTURE FRAME MAKER-CERTIFIED MEDICAL AIDE LAB - HE MATOLOGY ORDERABLES Performing Organization Address City/[facility]/ZIP Co de Phone Number [facility] [address] [place] [address] * CT ABD W/WO CON PELVIS W CONTRAST (10/01/2012 10:57 AM CDT) Anatomical Region Laterality Modality Abdomen, Pelvis Computed Tomogra phy 10/01/2012 11:1 0 AM CDT Narrative 10/01/2012 11:[address] ABDOMEN AND PELVIS HISTORY: Lower abdominal pain. The patient has a history of ovarian cancer. TECHNIQUE: Multiple contiguous axial images of the abdomen and pelvis were obtained following oral and intravenous contrast. The patient was premedicated for contrast allergy. No prior CT scans available at this time for comparison. There is mild diffuse fatty enlargement of the liver. There is no focal hepatic lesion. The gallbladder is normal. The spleen, pancreas, adrenal glands, kidneys, visualized ureters and bladder are normal. The uterus is normal. There is no adnexal mass. The visualized large and small bowel are normal. There is no free intraperitoneal air or fluid. The vascular structures enhance normally. There is no adenopathy. The lung bases are clear. DIAGNOSIS: Fatty liver. Otherwise grossly negative. There is no acute intra-abdominal abnormality. Procedure Note Martinez Magallanes MD - 10/01/2012 CT ABDOMEN AND PELVIS HISTORY: Lower abdominal pain. The patient has a history of ovarian cancer. TECHNIQUE: Multiple contiguous axial images of the abdomen and pelvis were obtained following oral and intravenous contrast. The patient was premedicated for contrast allergy. No prior CT scans available at this time for comparison. There is mild diffuse fatty enlargement of the liver. There is no focal hepatic lesion. The gallbladder is normal. The spleen, pancreas, adrenal glands, kidneys, visualized ureters and bladder are normal. The uterus is normal. There is no adnexal mass. The visualized large and small bowel are normal. There is no free intraperitoneal air or fluid. The vascular structures enhance normally. There is no adenopathy. The lung bases are clear. DIAGNOSIS: Fatty liver. Otherwise grossly negative. There is no acute intra-abdominal abnormality. Claire Clifford MD CT ORDERABLES * (ABNORMAL) CREATININE BLOOD - POINT OF CARE (IP) (10/01/2012 10:56 AM CDT) Creatinine POCT 0.55(A) 0.7 - 1.2 mg/dL [facility] POCT TESTING QC Verified yes Yes [facility] POC T TESTING Blood specimen (specimen) BLOOD SPECIMEN / Unknown 10/01/2012 10:56 AM CDT Swetha Bernstein MD LAB - POINT OF CARE ORDERABLES [facility] [address] * GROSS + MICRO EXAM (04/17/2010 9:10 AM DOCUMENTATION COORDINATOR) Only the most recent of2 resultswithin the time period is included. Result CASE NUMBER [id number] Comment: ORDERING PHYSICIAN ATIF COPPOLA SPECIMEN TYPE Polyp Colon Date 04/17/2010 Physician Edna Coppola Gross Description The specimen is received in two Formalin containers labeled with the patient's name, Yareli Marshall. The first container is labeled biopsy, cecal polyp, and consists of two 1 mm fragments of light krishnan tissue, stained, and submitted entirely in cassette A. The second container is labeled polyp, descending colon, and consists of a 7 x 7 x 5 mm krishnan red polyp. The base is inked, it is bisected, and submitted entirely in cassette B. [facility] Microscopic Exam 1. Sections show fragments of colonic mucosa with unremarkable histology. No atypia or malignancy is seen. 2. Sections show fragments of colonic mucosa with inflammatory pseudopolyp. The mucosa shows acute and chronic inflammation with occasional crypt abscesses. The lamina propria shows some fibrosis. The crypts show reactive and hyperplastic change. The surface shows erosions. Atypia or malignancy is not seen. MC/na Diagnosis I. Cecal polyp, biopsy -- No significant pathologic diagnosis II. Descending colon, polyp, biopsy -- Inflammatory pseudopolyp MC/na Check Pilot na Pathologist Ayaan Armenta MD [facility]. 04/18/2010 1054 <3> CPT code 89095i5 MISCELLANEOUS SAMPLES / Unknown 04/17/2010 9:10 AM DOCUMENTATION COORDINATOR 04/17/2010 1:52 PM DOCUMENTATION COORDINATOR Historical Provider MD LAB - PATHOLOGY/C YTOLOGY ORDERABLES * ENDOSCOPY, COLON, SCREENING (04/17/2010) Atif Coppola MD GI PROCEDURE ORDERAB LES * PATHOLOGY REPORTS - HPF HISTORICAL (08/25/2009 3:36 AM CDT) 08/25/2009 3:36 AM CDT Narrative [facility] - 08/25/2009 3:36 AM CDT Brooks Bernstein MD LAB - PATHOLOGY/CYT OLOGY ORDERABLES Performing Organization Address [facility]/State/ZIP Co de Phone Number [facility] * LAB HISTORICAL RESULTS-ONBASE (04/26/2009) 04/26/2009 Brooks Bernstein MD LAB - CHEMISTRY ORD ERABLES [facility] Care Teams Inside Finisher Relationship Specialty Start Date End Date Daniel Shrestha DO PCP - General Internal Medicine 12/09/16 Lynnette Leslie, RN Legal Contracts Specialist 10/20/13
--- OUTSIDE RECORDS SUMMARY | 2024-08-04 16:18 | XMS_ITS | Clinical Summary ---
Author Organization [facility] Address [address] [place] [id number] Care Team Providers Care Sql Report Developer Name Role Phone Unavailable Primary Care Provider Unavailabl e Social History Tobacco Use Types Packs/Day Years Used Date Smoking Tobacco: Never Assessed Comments Unknown Sex and Gender Information Value Date Recorded Sex Assigned at Not on file Legal Sex Female 7:47 PM CDT Gender Identity Not on file Sexual Orientation Not on file Plan of Treatment Health Maintenance Due Date Last Done Comments Cervical Cancer Screening Pa p Smear (Age 30 to 64) Every 3 Years 1960 Colorectal Cancer Screening Colonoscopy (10 Years) 1960 Annual Physical 1964 Hepatitis C 12/29/1979 DTaP, Tdap and Td Vaccines ( 1 - Tdap) 1980 Cervical Cancer Screening Pa p with HPV Testing (Age 30 to 64) Every 5 Years 12/29/1991 Cervical Cancer Screening with HPV 12/29/1991 Mammogram Screening 2001 Zoster Vaccines (1 of 2) 12/29/2011 COVID-19 Vaccine (2023-2 5 season) 2024 Influenza Adult (#1) 2024 RSV Immunization or 60+ Years (1 - 1-dose 75+ series) 2036 Meningococcal B Vaccine Aged Out No l onger eligible based on patient's age to complete this topic Meningococcal Vaccine Aged Out No maribel jacob eligible based on patient's age to complete this topic Pneumococcal Vaccine: Pediat rics (0 to 5 Years) and At-Risk Patients (6 to 64 Years) Aged Out No longer eligible b ased on patient's age to complete this topic RSV Immunizations Under 20 Months Aged Out No longer eligible based on patient's age to complete this topic
--- OUTSIDE RECORDS SUMMARY | 2024-08-04 16:18 | XMS_ITS | Referral Summary ---
Author Organization [facility] Address [address] [place] [address] Care Team Providers Care Health Care Social Worker Name Role Phone Daniel Shrestha DO Primary Care Provider [phone] Allergies Active Allergy Reactions Criticality Noted Date Comments Iodinated Contrast Media Npfiegvx-Vktggqemjs-Iuylhb dahlia Penicillins Stomach upset Reaction: GI problems, , Shellfish Containing Products Sulfa (Sulfonamide Antibiotics) Rash Reaction: Rash, , Tramadol Medications flaxseed 1,000 mg capsule 1,000 mg. 0 0 7 Active coenzyme Q10 (COQ-10) 30 mg capsule 30 mg. 0 0 7 Active famotidine (PEPCID) 20 mg tablet take 1 tablet by oral route 2 times every day 0 0 7 Active multivitamin (MULTI-DELYN) liquid 0 0 7 Active fluticasone furoate-vilante rol (BREO ELLIPTA) 100-25 mcg/dose diskus inhaler Inhale 1 puff daily Rinse mouth with water after use. Do not swallow. Active ProAir HFA 90 mcg/actuation inhaler 0 Active cyclobenzaprine (FLEXERIL) 10 mg tablet TAKE 1 TABLET BY MOUTH 3 TIMES A DAY NEEDED FOR MUSCLE SPASMS 0 Active EPINEPHrine 0.3 mg/0.3 mL auto-injection syringe INJECT 0.3 MG IM ONCE A SINGLE DOSE 0 Active hydroCHLOROthia zide (HYDRODIURIL) 12.5 mg tablet Take 12.5 mg by mouth daily 0 Active lisinopriL (PRINIVIL,ZESTR IL) 40 mg tablet Take 40 mg by mouth daily 0 Active loratadine (CLARITIN) 10 mg tablet Take 10 mg by mouth daily Active biotin 5 mg capsule 5 mg Active TURMERIC ORAL Take 117 mg by mouth Active zinc 50 mg tablet Take by mouth Active vit B complex 100 no.3-herbs 100 mg tablet Take by mouth Ac tive cholecalciferol (VITAMIN D-3) 25 mcg (1,000 unit) tablet Take 1,000 Units by mouth daily Active magnesium oxide (MAG-OX) 250 mg (150.8 mg elemental) tabletIndicatio ns:hypomagnesem ia 250 mg daily Active 21-iron fu-folic acid 14 mg iron- 400 mcg tablet Take by mouth Activ e UNABLE TO FIND Arthro Cure Joint Regenerator & Protector Active APPLE CIDER VINEGAR ORAL Take by mouth Act benjamin UNABLE TO FIND Pecta Kizzy Detox Formula - Active vitamin A 10,000 unit capsule Take 2,600 Units by mouth daily Active ACAI LEON EXTRACT ORAL Take by mouth Act benjamin selenium 200 mcg tablet Take by mouth Activ e Active Problems Problem Noted Date Diagnosed Date Coronary atherosclerosis of [place] coronary [place] ry 02/17/2020 Abnormal stress test 10/29/2018 Social History Tobacco Use Types Packs/Day Years Used Date Smoking Tobacco: Never Smokeless Tobacco: Never Alcohol Use Standard Drinks/Week Comments Never 0 (1 standard drink = 0.6 oz pur e alcohol) AUDIT-C Answer Date Recorded Frequency of Alcohol Consumption Never 02/17/2020 Average Number of Drinks Not on file 020 Frequency of Binge Drinking Not on file 01/25 Comments Unknown Sex and Gender Information Value Date Recorded Sex Assigned at Not on file Legal Sex Female 2:34 AM [employer] Gender Identity Not on file Sexual Orientation Not on file Last Filed Vital Signs Vital Sign Reading Time Taken Comments Blood Pressure 126/74 10/30/2021 9:39 AM CDT Pulse 81 10/30/2021 9:39 AM CDT Temperature - - Respiratory Rate - - Oxygen Saturation 97% 10/30/2021 9:39 AM CDT Inhaled Oxygen Concentration - - Weight 177.8 kg (392 lb) 10/30/2021 9:39 AM CDT Height 160 cm (5' 3 ) 10/30/2021 9:39 AM CDT Body Mass Index 69.44 10/30/2021 9:39 AM CDT Plan of Treatment Not on file Insurance [facility] Address: [address] [address] [address] [place] [id number] Care Teams Health Care Social Worker Relationship Specialty Start Date End Date Daniel Shrestha DO PCP - General Internal Medicine 10/26/18
--- OUTSIDE RECORDS SUMMARY | 2024-08-04 16:18 | XMS_ITS ---
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 Name Role Phone Daniel Shrestha Primary Care Provider Unavailab debbie CollinsmLizzeth Unavailable [phone] Oneida Carvajal Unavailable Unavaila ble Allergies Allergen (clinical drug ingredient) Drug/Non Drug Allergy documented on EMR Reaction Allergy Type Onset Date Status Neosporin rash Drug Allergy Active tramadol Ultram hives Drug Allergy Active sulfADIAZINE hives Drug Allergy Acti ve penicillin G penicillin G sodium hives Drug Allergy Active REASON FOR VISIT Chronic upper airway symptoms concerning for uncontrolled atopic disease, Chronic lower airways symptoms concerning for possible asthma Medications Medication SIG (Take, Route, Frequency, Duration) Notes Start Date End Date Status ZYRTEC 10 mg 1 tab(s) orally once a day Active FLONASE 0.05 mg/inh 2 spray(s) intranasa lly (avoid nasal septum) once a day Active PROAIR HFA 90 mcg/inh 2 puff(s) inhaled every 6 hours 02/15/2023 Active LISINOPRIL 40mg daily Active EPINEPHRINE AUTO-INJECTOR 0.3 mg as directed intramuscularly once for 1 day 02/12/2023 Active Social History Tobacco Use: Social History Observation Description Date Details (start date - stop date) Never Smoker NA - NA Smoking Smart Form: Question Answer Notes Are you a: never smoker Problems Problem Type SNOMED Code ICD Code Onset Dates Problem Status W/U Status Risk Notes Problem Allergic rhinitis caused by pollen (disorder) (68567223) Allergic rhinitis due to pollen (J30.1) Active confirmed Problem Allergic rhinitis (87971689) Other allergic rhinitis (J30.89) Active confirmed Problem Chronic allergic conjunctivitis (04446723) Other chronic allergic conjunctivitis (H10.45) Active confirmed Problem Uncomplicated mild persistent asthma (254729511) Mild persistent asthma, uncomplicated (J45.30) Active confirmed Problem Allergy to seafood (53062864) Allergy to seafood (Z91.013) Active confirmed Vital Signs Blood pressure systolic 182 mm Hg 02/13/20 23 Blood pressure diastolic 85 mm Hg 023 Respiratory Rate 18 /min 02/12/2023 Height 62 in 02/12/2023 Weight 403 lbs 02/12/2023 BMI 73.70 kg/m2 02/12/2023 Oximetry 97 % 02/12/2023 Encounters Encounter Location Date Provider Diagnosis [facility] [address] [facility] [address] [place] [address] 02/12/2023 Lizzeth Jones Allergic rhinitis du e to pollen J30.1 ; Mild persistent asthma, uncomplicated J45.30 ; Allergic rhinitis due to animal (cat) (dog) hair and dander J30.81 ; Other allergic rhinitis J30.89 ; Other chronic allergic conjunctivitis H10.45 and Allergy to seafood Z91.013 Assessments Encounter Date Diagnosis (ICD Code) Assessment Notes Treatment Notes Treatment Clinical Notes Section Notes 02/12/2023 Allergic rhinitis due to pollen (ICD-10 - J30.1) Given the history and symptoms, skin testing was performed to common aeroallergens to determine atopic status. Amanda clearly suffers from atopic disease based upon our skin testing and clinical history. Accordingly, we have introduced a new, aggressive medication regimen, discussed nasal washes and allergy-specific avoidance measures. We also discussed adjunctive therapies including subcutaneous, specific allergen immunotherapy as relates to the treatment and prevention of atopic disease. She is currently considering the risks, benefits and alternatives to this care. Risks: bleeding, infection, allergic reaction, anaphylaxis; Benefits: reduced need for medications, improved symptoms, disease modification. Alternatives: watch/wait, change medication regimen, improve allergy avoidance measures. Follow-up in 1 month for interval evaluation and management 02/12/2023 Mild persistent asthma, uncomplicated (ICD-10 - J45.30) persistent asthma and recent flares with Covid. Records show normal PFTs and no change post bronchodilator -2022. CT reported as normal with no ILD or evidence of fibrosis. For now, continue prn albuterol. She does not appear to need to restart Breo, A copy of this consultation report was sent to the requesting physician. 02/12/2023 Allergic rhinitis due to animal (cat) (dog) hair and dander (ICD-10 - J30.81) Follow allergen avoidance, meds and consider SCIT as an adjunctive treatment to current regimen 02/12/2023 Other allergic rhinitis (ICD-10 - J30.89) Follow allergen avoidance, meds and consider SCIT as an adjunctive treatment to current regimen 02/12/2023 Other chronic allergic conjunctivitis (ICD-10 - H10.45) Given ocular signs and symptoms I encouraged allergy avoidance measures and meds as above. If symptoms persist, consider adding additional medications including intraocular antihistamine/mast cell stabilizer, PRN 02/12/2023 Allergy to seafood (ICD-10 - Z91.013) history of throat tightness at age 17 and carries an EpiPen. Consider skin testing in the future. Plan Of Treatment Medication Medication Name Sig Start Date Stop Date Notes ZYRTEC 10 mg 1 tab(s) orally once a day FLONASE 0.05 mg/inh 2 spray(s) intranasa lly (avoid nasal septum) once a day PROAIR HFA 90 mcg/inh 2 puff(s) inhaled every 6 hours 01/25 EPINEPHRINE AUTO-INJECTOR 0.3 mg as directed intramuscularly once for 1 day 02/12/2023 Treatment Notes Assessment Notes Allergic rhinitis due to pollen Given th e history and symptoms, skin testing was performed to common aeroallergens to determine atopic status. Amanda clearly suffers from atopic disease based upon our skin testing and clinical history. Accordingly, we have introduced a new, aggressive medication regimen, discussed nasal washes and allergy-specific avoidance measures. We also discussed adjunctive therapies including subcutaneous, specific allergen immunotherapy as relates to the treatment and prevention of atopic disease. She is currently considering the risks, benefits and alternatives to this care. Risks: bleeding, infection, allergic reaction, anaphylaxis; Benefits: reduced need for medications, improved symptoms, disease modification. Alternatives: watch/wait, change medication regimen, improve allergy avoidance measures. Follow-up in 1 month for interval evaluation and management Mild persistent asthma, uncomplicated pe rsistent asthma and recent flares with Covid. Records show normal PFTs and no change post bronchodilator -2022. CT reported as normal with no ILD or evidence of fibrosis. For now, continue prn albuterol. She does not appear to need to restart Breo, A copy of this consultation report was sent to the requesting physician. Allergic rhinitis due to ani mal (cat) (dog) hair and dander Follow allergen avoidance, meds and consider SCIT as an adjunctive treatment to current regimen Other allergic rhinitis Follow allergen avoidance, meds and consider SCIT as an adjunctive treatment to current regimen Other chronic allergic conjunctivitis Gi lorena ocular signs and symptoms I encouraged allergy avoidance measures and meds as above. If symptoms persist, consider adding additional medications including intraocular antihistamine/mast cell stabilizer, PRN Allergy to seafood history of throat ti ghtness at age 17 and carries an EpiPen. Consider skin testing in the future. Next Appt Details Follow Up: 3 Months, Reason: Evaluation and Management Procedure Notes * Category Sub-Category Detail Notes Skin Testing Epicutaneous skin testing was performed to common aeroallergens, revealing positive reactions to, miguel angel (white), birch, box elder, maple, dust mite (f), dust mite (p), positive and negative controls responded appropriately Intradermal skin testing was per formed to the indicated aeroallergens, revealing positive reactions to, oak (mix), bermuda, akanksha, k. blue grass, evangelist, ragweed, cat hair, dog, dust mite f, dust mite p, Alternaria alternata, Cladosporium, Ryegate Smut, negative control responded appropriately Number of Skin Tests Perform ed (including controls): Total (Epicutaneous): 72 Total (Intradermal): 17 Progress Notes * Amanda MARSHALLDOB:1960 (62 yo F)Acc No.[id number]:02/12/2023 Progress Notes Patient: Amanda Ashley Provider: Edna Jones MD :1960 A ge:62 Y S ex:Female Date:02/12/2023 Address:[address] [place], [place] [id number] Pcp:Daniel Shrestha Subjective: * Chief Complaints: * C hronic upper airway symptoms concerning for uncontrolled atopic diseaseChronic lower airways symptoms concerning for possible asthma * HPI: * Introduction: I had the pleasure of seeing Heidy Marshall, a 62 year old with allergic rhinitis and asthma presenting for evaluation of asthma. She was referred by Dr. Shrestha and records were reviewed. S he was diagnosed with asthma as an adult. She has previosuly taken Breo and last used 3 years ago. She is currently taking prn albuterol. S he reports frequent shortness of breath with hot and cold weather. She last used albuterol about 1 month ago. She is interested in restarting immunotherapy to help with rhinitis and asthma control. She reports frequent rhinorrhea, congestion along with eye itching and watering. She is developing sinusitis 1-2 times requring antibiotics. She is perforrming oil pulling with coconut oil and feels it helps with congestion and rhinorrhea. S he was diagnosed with pneumonia -2022 following Covid. She was diagnosed with CXR. She also had Covid in 2019. She reports 3 episodes of pneumonia with first episode in 2020 also related to Covid. She continues to have decrease in taste and smell. S he denies a history of physician-diagnosed?recurrent sinusitis or otitis media, recurrent pneumonia, eczema, food allergies, urticaria/angioedema, medication allergies, contact dermatitis, latex allergy, eosinophilic esophagitis or stinging insect hypersensitivity. * ROS: A LLERGY: Positive p er the HPI and history, otherwise unremarkable.? S PECIAL SENSES: Positve for n one. C ONSTITUTIONAL: Positive for n one. E NT: Positive p er the HPI and history, otherwise unremarkable.? R ESPIRATORY: Positive p er the HPI and history, otherwise unremakable.? O PHTHALMOLOGY: Positive for p er the HPI and history, otherwise unremarkable. E NDOCRINOLOGY: Positive for n one. C ARDIOLOGY: Positive for n one. G ASTROENTEROLOGY: Positive for n one. U ROLOGY: Positive for n one. D ERMATOLOGY: Positive for p er the HPI and history, otherwise unremakable. N EUROLOGY: Positive for n one. H EMATOLOGY/LYMPH: Positive for n one. M USCULOSKELETAL: Positive for n one. P SYCHOLOGY: Positive for n one. A ll other review of systems per the HPI and history, otherwise unremarkable. * Medical History: * Surgical History: D natacha Past Surgical History * Hospitalization/Major Diagno stic Procedure: R ectal Bleeding 10/16/2013Epstein Lamar Virus 11-23-2013 * Family History: F ather: No. M other: Yes. P aternal Grand Father: No. P aternal Grand Mother: No.?Maternal Grand Father: No. M aternal Grand Mother: No. S iblings: Yes. C hildren: No. * Social History: M arital Status What is your marital status? d ivorced A lcohol Screening Do you ever drink alcoholic beverages? N o S moking Have you ever smoked tobacco: n ever smoked Additional Findings: Tobacco Non-User N ever chewed tobacco Are you a : n ever smoker R ecreational drug use Have you ever used recreational drugs? N o S moking Smart Form Are you a: n ever smoker D etails on consumption of certain products? Do you regularly consume products with aspartame; Equal or NutraSweet? Y es Do you regularly consume products with artificial coloring??Yes Have you ever noticed worsening of your rash with these food items? N o E xercise How often do you perform this exercise? l ess than once per year A re any of the following personal care products containing fragrance, dye or preservatives used regularly? Shampoo: Y es Conditioner: N o Soap: Y es Laundry Detergent: Y es Fabric Softener: N o Deodorant: Y es Perfume, cologne, after shave: Y es Air freshners or other scented products: Y es Hair coloring dyes or rinses: Y es O ccupation Are you currenly employed? N o Have you had any job with high exposure to fumes, chemicals, dust or other noxious substances? N o Are you currently a student? N o E nvironmental History Living environment: p rivate home Where is the home located? [place] Age of home: 1 00 How long have you lived there? 5 years or more How many people live in the home? 4 H ome description Basement: Y es Any water damage in basement? N o Smokers in the home? N o Smokers outside the home? N o Air Conditioning? Y es Central Air? Y es Forced air heating? Y es Gas or electric? g as Fireplace? N o Wood burning stove? N o Do you vacuum the home? Y es Air purification systems? N o Pillow and mattress dust-proof encasings? Y es Do you use a humidifier? Y es Whole house or room? r oom humidifier Does it have a humidistat? N o Is it used year-round, seasonal, or as needed? a s needed Is the humidifier cleaned regularly? Y es Do you own any pets? N o Fabric softeners used? N o Plants in the home? N o Is there carpeting in your bedroom? Y es Age of carpet? 2 0 Do you have [id number]-awux carpeting? N o What is the age of your mattress (years)? 1 What material(s) are used to manufacture your bedding and pillow? s ynthetic What is the age of your pillow (years)? 1 What material are your bedding items made of? n atural fiber (e.g. cotton) Do you sleep with quilts or blankets or a duvet? Y es What material? n atural fiber (e.g. cotton) * Medications: T akingZyrTEC 10 mg tablet 1 tab(s) orally once a dayFlonase 0.05 mg/inh spray 2 spray(s) intranasally (avoid nasal septum) once a daylisinopril , Notes: 40mg dailyMedication List reviewed and reconciled with the patientTaking ZyrTEC 10 mg tablet 1 tab(s) orally once a dayTaking Flonase 0.05 mg/inh spray 2 spray(s) intranasally (avoid nasal septum) once a dayTaking lisinopril , Notes: 40mg dailyMedication List reviewed and reconciled with the patient * Allergies: s ulfADIAZINE: hivesUltram: hivesNeosporin: rashpenicillin G sodium: hivesno[Allergies Verified] Objective: * Vitals: B P:182/85, HR:82 /min, RR:18 /min, Pulse Oximetry:97 %, Ht:62 in, Wt:403 lbs, BMI:73.70 Index. * Examination: G eneral examination: General appearance: p leasant, well-developed, well-nourished . HEENT: c onjunctiva are clear bilaterally, no tenderness to palpation of the sinuses, TM's without evidence of acute infection, turbinates 2+ swollen and pale inferiorly bilaterally, clear rhinorrhea is present, no polyps noted, no septal perforation, posterior oropharynx is clear, no exudates, no tongue swelling, and uvula is midline. Oral cavity: n ormal, no lesions . Neck, thyroid : s upple, non-tender, no anterior cervical lymphadenopathy . Breasts : n ot performed . Heart: R RR, S1-S2, no murmurs, no rubs, no gallops . Lungs: c lear to auscultation and percussion in all lung lechuga, no wheezes or crackles . Abdomen: s oft, NT/ND, normal active bowel sounds . Neurologic exam: u nremarkable . Skin: n ormal, no rash, dermatographism, urticaria, angioedema . Peripheral pulses: n ormal (2+) bilaterally . Back: n ormal . Extremities: n ormal ROM, no clubbing, no cyanosis, no edema . Genitalia: n ot performed . Assessment: * Assessment: 1. M ild persistent asthma, uncomplicated - J45.30 (Primary) 2 . A llergic rhinitis due to pollen - J30.1 3 . A llergic rhinitis due to animal (cat) (dog) hair and dander - J30.81 4. O ther allergic rhinitis - J30.89 5 . O ther chronic allergic conjunctivitis - H10.45 6 . A llergy to seafood - Z91.013 Plan: * Treatment: 2. A llergic rhinitis due to pollen Notes: Given the history and symptoms, skin testing was performed to common aeroallergens to determine atopic status. Amanda clearly suffers from atopic disease based upon our skin testing and clinical history. Accordingly, we have introduced a new, aggressive medication regimen, discussed nasal washes and allergy-specific avoidance measures. We also discussed adjunctive therapies including subcutaneous, specific allergen immunotherapy as relates to the treatment and prevention of atopic disease. She is currently considering the risks, benefits and alternatives to this care. Risks: bleeding, infection, allergic reaction, anaphylaxis; Benefits: reduced need for medications, improved symptoms, disease modification. Alternatives: watch/wait, change medication regimen, improve allergy avoidance measures. Follow-up in 1 month for interval evaluation and management 3. A llergic rhinitis due to animal (cat) (dog) hair and dander Continue ZyrTEC tablet, 10 mg, 1 tab(s), orally, once a day; C ontinue Flonase spray, 0.05 mg/inh, 2 spray(s), intranasally (avoid nasal septum), once a day. Notes: Follow allergen avoidance, meds and consider SCIT as an adjunctive treatment to current regimen 4. O ther allergic rhinitis Notes: Follow allergen avoidance, meds and consider SCIT as an adjunctive treatment to current regimen 5. O ther chronic allergic conjunctivitis Notes: Given ocular signs and symptoms I encouraged allergy avoidance measures and meds as above. If symptoms persist, consider adding additional medications including intraocular antihistamine/mast cell stabilizer, PRN 6. A llergy to seafood Start EPINEPHrine Auto-Injector kit, 0.3 mg, as directed, intramuscularly, once, 1 day, 1, Refills 0. Notes: history of throat tightness at age 17 and carries an EpiPen. Consider skin testing in the future. * Procedures: S kin Testing: Epicutaneous s kin testing was performed to common aeroallergens, revealing positive reactions to, miguel angel (white), birch, box elder, maple, dust mite (f), dust mite (p), positive and negative controls responded appropriately. Intradermal s kin testing was performed to the indicated aeroallergens, revealing positive reactions to, oak (mix), bermuda, akanksha, k. blue grass, evangelist, ragweed, cat hair, dog, dust mite f, dust mite p, Alternaria alternata, Cladosporium, Ryegate Smut, negative control responded appropriately. Number of Skin Tests Performed (including controls): T otal (Epicutaneous) 7 2 T otal (Intradermal) 1 7 * Procedure Codes: 9 5004 PRICK TESTS, Units: 72.00 38703 INTRADERMAL TESTS, Units: 17.00 S9441 ASTHMA ED NON-MD PROV PER [id number] PT-FOCUSED TH RISK [id number] DOC MEDS VERIFIED W/PT OR RE * Preventive Medicine: Counseling: M edication instruction: W atch for side effects of prescribed medications, Nasal steroid/antihistamine instruction: avoid septum. E ducation: G ENERAL EDUCATION: Our staff spent an additional 30 minutes in direct contact with the patient educating them on their current diagnoses and proper treatment and prevention of symptoms and the proper use of medications. E ducation 2: A RC EDUCATION: Our staff discussed the appropriate allergen avoidance measures and medication utilization including upper airway hygiene with daily nasal washes given the patient's clinical status and diagnoses. SCIT EDUCATION: Discussed allergy immunotherapy including the relative risks, benefits and alternatives to this treatment as an adjunctive measure to current therapy, Allergy Immunotherapy: Risks: bleeding, infection, allergic reaction, anaphylaxis = severe allergic reaction that can cause ; Benefits: reduced need for medications, improved symptoms, disease modification. Alternatives: watch/wait, change medication regimen, improve allergy avoidance measures, Our staff discussed the warning signs of anaphylaxis and the indications to use self-injectable epinephrine and seek urgent or emergent care. P atient education material sent to portal? Y es C are goal follow up plan BMI management provided Y es Above Normal BMI Follow-up D ietary management education, guidance, and counseling B P Management: FIRST HYPERTENSIVE BP READING FOLLOW-UP PLAN: F ollow-up 1 month REFERRAL TO ALTERNATIVE / PRIMARY CARE PROVIDER: R natalieal to general physician * Follow Up: 3 Months (Reason: Evaluation and Management) * Billing Information: * Visit Code: 87658 Office Visit, New Pt., Level 4. Modifiers: 25 * Procedure Codes: 51837 PRICK TESTS. Units: 72.00. 65910 INTRADERMAL TESTS. Units: 17.00. S9441 ASTHMA ED NON-MD PROV PER SESSION. 04008 PT-FOCUSED HLTH RISK ASSMT. G8427 DOC MEDS VERIFIED W/PT OR RE. Images * 02/12/2023 02/12/2023 mobile_02/12/2023 11:14:10 * Sign off status: Completed true * Provider: Edna Jones MD Date: 0 02/12/2023 Generated for Jasiel dhaliwal/Emil/Luis on: 0 08/04/2024 04:18 PM CDT History and Physical Notes * HPI (History of Present Illness) Category Sub-Category Detail Notes Category Not es *Introduction I had the pleasure o f seeing Aamnda Marshall, a 62 year old with allergic rhinitis and asthma presenting for evaluation of asthma. She was referred by Dr. Shrestha and records were reviewed. She was diagnosed with asthma as an adult. She has previosuly taken Breo and last used 3 years ago. She is currently taking prn albuterol. She reports frequent shortness of breath with hot and cold weather. She last used albuterol about 1 month ago. She is interested in restarting immunotherapy to help with rhinitis and asthma control. She reports frequent rhinorrhea, congestion along with eye itching and watering. She is developing sinusitis 1-2 times requring antibiotics. She is perforrming oil pulling with coconut oil and feels it helps with congestion and rhinorrhea. She was diagnosed with pneumonia 4-2022 following Covid. She was diagnosed with CXR. She also had Covid in 2019. She reports 3 episodes of pneumonia with first episode in 2020 also related to Covid. She continues to have decrease in taste and smell. She denies a history of physician-diagnosed recurrent sinusitis or otitis media, recurrent pneumonia, eczema, food allergies, urticaria/angioedema, medication allergies, contact dermatitis, latex allergy, eosinophilic esophagitis or stinging insect hypersensitivity Examination Category Sub-Category Detail Notes Category Not es General examination HEENT: conjunctiva are clear bilaterally, no tenderness to palpation of the sinuses, TM's without evidence of acute infection, turbinates 2+ swollen and pale inferiorly bilaterally, clear rhinorrhea is present, no polyps noted, no septal perforation, posterior oropharynx is clear, no exudates, no tongue swelling, and uvula is midline Neck, thyroid : supple, non-tender, no anterior cervical lymphadenopathy Heart: RRR, S1-S2, no murmu rs, no rubs, no gallops Lungs: clear to auscultatio n and percussion in all lung lechuga, no wheezes or crackles Abdomen: soft, NT/ND, normal active bowel sounds Extremities: normal ROM, no clubb ing, no cyanosis, no edema General appearance: pleasant, well-devel oped, well-nourished Skin: normal, no rash, faisal matographism, urticaria, angioedema Neurologic exam: unremarkable Oral cavity: normal, no lesions Breasts : not performed Peripheral pulses: normal (2+) bilatera lly Back: normal Genitalia: not performed
--- OUTSIDE RECORDS SUMMARY | 2024-08-04 16:18 | XMS_ITS | Patient Health Record ---
Author Organization [facility] Address [address] [place] [address] Care Team Providers Care Slope Hoist Operator Name Role Phone Daniel Shrestha Primary Care Provider Unavailab le Lizzeth Jones Unavailable [phone] Oneida Carvajal Unavailable Unavaila ble [employer], Provider Unavailable Unavailab le Allergies Allergen (clinical drug ingredient) Drug/Non Drug Allergy documented on EMR Reaction Allergy Type Onset Date Status ULTRAM (uncoded) hives Allergy Act benjamin Neosporin rash Drug Allergy Active penicillin G Penicillin G Sodium hives Drug Allergy Active sulfadiazine sulfADIAZINE hives Drug Allergy A ctive Reason For Referral No Information Medications Medication SIG (Take, Route, Frequency, Duration) Notes Start Date End Date Status PROAIR HFA 90 MCG/INH 2 PUFF(S) INHALED EVERY 6 HOURS *Please review for potential replacement for e-prescription and drug interaction check* 02/15/2023 Active ZYRTEC 10 mg 1 tab(s) orally once a day Active FLONASE 0.05 mg/inh 2 spray(s) intranasally (avoid nasal septum) once a day Active LISINOPRIL 40mg daily Active Flonase Allergy Relief 50 MCG/ACT 2 spray(s) intranasally (avoid nasal septum) once a day Active ZyrTEC Allergy 10 MG 1 tab(s) orally once a day Active EPINEPHRINE AUTO-INJECTOR 0.3 MG DIRECTED INTRAMUSCULARLY ONCE for 1 DAY *Please review for potential replacement for e-prescription and drug interaction check* 02/12/2023 Active Lisinopril 40mg daily *Plea se review and pick correct strength-formulati on from [employer] options. If intended option is not shown, discontinue and re-order from Quick Search* Active Social History Tobacco Use: Social History Observation Description Date Details (start date - stop date) Never Smoker NA - NA Smoking Smart Form: Question Answer Notes Are you a: never smoker Problems Problem Type SNOMED Code ICD Code Onset Dates Problem Status W/U Status Risk Notes Problem Chronic allergic conjunctivitis (74126435) Other chronic allergic conjunctivitis (H10.45) Active confirmed Problem Allergic rhinitis caused by pollen (disorder) (72016494) Allergic rhinitis due to pollen (J30.1) Active confirmed Problem Allergic rhinitis (48661555) Other allergic rhinitis (J30.89) Active confirmed Problem Uncomplicated mild persistent asthma (033453951) Mild persistent asthma, uncomplicated (J45.30) Active confirmed Problem Allergy to seafood (37923429) Allergy to seafood (Z91.013) Active confirmed Encounters Encounter Location Date Provider Diagnosis [address] [address] 11/08/2023 Provider Jethro Mild persistent asthma, uncomplicated J45.30 ; Allergic [...] seafood (ICD-10 - Z91.013) Plan Of Treatment No Information Insurance Providers Payer Name Payer Address Payer Phone Subscriber Number Group Number Insured Name Patient Relationship to Insured Coverage Start Date Coverage End Date [facility] [employer] [address] [address] [place] [address] [id number] Amanda Martinez Self - patient is the insured Medical (General) History Medical History History ICD Code Hypertension Covid/had infusion (05/18/2021 Covid (was prescribed Paxlovid) 08/05/22 Fab Rcuker Surgical History Surgery Date(Month/Year) Hospitalization History Reason Date(Month/Year) Rectal Bleeding 10/16/2013 Barb Lamar Virus 11-23-2013
--- OUTSIDE RECORDS SUMMARY | 2024-08-04 16:18 | XMS_ITS | Clinical Summary ---
Author Organization [facility] Address [address] [place] [address] Care Team Providers Care Rn Imcu Name Role Phone Daniel Shrestha DO Primary Care Provider [phone] Allergies Active Allergy Reactions Criticality Noted Date Comments Iodinated Contrast Media Tjciktnn-Vlovoptsho-Hypdfu dahlia Penicillins Stomach upset Reaction: GI problems, [...] Noted Date Diagnosed Date Coronary atherosclerosis of sokaogon coronary baron ry 02/17/2020 Abnormal stress test 10/29/2018 Family History Medical History Relation Name Comments Heart disease Mother Family history of cardiac disorder - (Added by TW Conv) Hypertension Other 1 Family history of Hypertension; Heart disease Other 2 Family history of Heart disease; Other Other 3 Family history of IVP DYE; Other Other 4 Family history of Nephrotic syndrome; Relation Name Status Comments Mother Other 1 Other 2 Other 3 Other 4 Social History Tobacco Use Types Packs/Day Years [...] on file 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 Gender Identity Not on file Sexual Orientation Not on file Obstetrics History Last Filed Vital Signs Vital Sign Reading [...] 10/30/2021 9:39 AM CDT Plan of Treatment Health Maintenance Due Date Last Done Comments Breast Cancer Screening-Mammogram 1961 Cervical Cancer Screening 1961 Colon Cancer Screening-Colonoscopy 1961 Depression Screening 1961 Hepatitis C Screening 1961 DTaP/Tdap/Td Vaccine (1 - Tdap) 1972 Hepatitis B Screening 12/29/1979 Regular Well Visit/Exam 18-64 12/29/1979 Zoster Vaccine (1 of 2) 12/29/2011 Influenza Vaccine (#1) 2024 Pneumococcal vaccine <65 Aged Out No longer eligible based on patient's age to complete this topic Insurance [id number] [id number] Care Teams Rn Imcu Relationship Specialty Start Date End Date Daniel Shrestha DO PCP - General Internal Medicine 10/26/18
== END 2024-08-04 14:21 | disposition home or self-care (01) ==
LOC: ANHIMG 14:23
PROVIDERS: PCP Internal Medicine; Visit Provider Obstetrics & Gynecology
DX: Z12.31 Encounter for screening mammogram for malignant neoplasm of breast (principal)
CPT/HCPCS: 77063; 77067

== ENCOUNTER 2024-11-12 10:34 | Outpatient (CLI) | payer MEDICARE, SELFPAY ==
--- NOTE | ~2024-11-12 | XR_ITS ---
Cervical Spine: AP, lateral, open-mouth views Clinical History: Pain Findings: The normal lordotic curve is maintained. No fracture. There is minimal grade 1 anterolisthe sis of C4 over C5. There is moderate degenerative distended. C5 and C6. Pre-vertebral soft tissues ar e unremarkable. Impression: Degenerative changes at C4-C5 and C5-C6, as above. Reviewed, dictated and finalized at location . Impression: Degenerative changes at C4-C5 and C5-C6, as above.
== END 2024-11-12 10:35 | disposition home or self-care (01) ==
LOC: GOSHIMG 10:35
PROVIDERS: PCP Internal Medicine; Visit Provider Clinical Nurse Specialist
DX: M47.812 Spondylosis without myelopathy or radiculopathy, cervical region (principal)
CPT/HCPCS: 72040

== ENCOUNTER 2024-11-24 13:19 | Outpatient (CLI) | payer MEDICARE, SELFPAY ==
--- NOTE | ~2024-11-24 | MR_ITS ---
MRI of the cervical spine Clinical History: Radiculopathy Technique: Axial T2-weighted and gradient images, and sagittal T1-weighted, T2-weighted, and STIR ta ges were acquired. Findings: There is no fracture or subluxation of cervical spine. Vertebral bodies maintain normal hei ght. No bone marrow signal abnormality seen. At C2-C3, C3-C4, C4-C5, there is no disc bulge or herniation. No spinal canal stenosis, cord compress ion, or neural foraminal narrowing at these levels. At C5-C6, there is degenerative disc narrowing with mild disc osteophyte complex. No definite canal s tenosis, cord compression, or neural foraminal narrowing. At C6-C7, there is no disc bulge or herniation. No spinal canal stenosis, cord compression, or neural foraminal narrowing. No abnormal signal seen in the spinal cord. Paravertebral soft tissues are unremarkable. Impression: Minimal degenerative change at C5-C6. Reviewed, dictated and finalized at [facility]. Impression: Minimal degenerative change at C5-C6.
== END 2024-11-24 13:20 | disposition home or self-care (01) ==
LOC: GOSHIMG 13:19
PROVIDERS: PCP Internal Medicine; Visit Provider Clinical Nurse Specialist
DX: M54.12 Radiculopathy, cervical region (principal); M50.322 Other cervical disc degeneration at C5-C6 level
CPT/HCPCS: 72141

== ENCOUNTER 2025-01-05 09:00 | Outpatient (RCR) | payer MEDICARE, SELFPAY ==
--- NOTE | 2024-12-03 10:59 | OPREHPOC ---
Outpatient Therapy Plan of Care This is a Multidisciplinary Plan of Care that may contain components documented by all disciplines (PT, OT, and ST.) PT Problem 1 PT Problem #1 Knowledge Deficit PT Goal 1 Goal / Goal Update *independent with HEP Target Visit 10 PT Problem 2 PT Problem #2 Pain PT Goal 1 Goal / Goal Update 1* pt report pain in neck of 3/10 at worst 2* radicular pain into L UE to elbow at worst 3* pt report with sleeping, awaken 1x/night due to pain Target Visit 10 PT Problem 3 PT Problem #3 Impaired Flexibility PT Goal 1 Goal / Goal Update increase cervical rotation to improve driving and home activities 1* rotation R 50' 2* rotation L 50' Target Visit 10 PT Problem 4 PT Problem #4 Impaired Strength PT Goal 1 Goal / Goal Update 1*increase L steam box tender strength with dynamometer 3rd slot: 40# 2* L shoulder flexion strength of 4/5 Target Visit 10
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
--- NOTE | 2024-12-29 13:13 | PCPTNOTE ---
Cancelled d/t eye issue per front office. AKS
--- NOTE | 2025-01-05 09:55 | OPREHPOC ---
Outpatient Therapy Plan of Care This is a Multidisciplinary Plan of Care that may contain components documented by all disciplines (PT, OT, and ST.) PT Problem 1 PT Problem #1 Knowledge Deficit PT Goal 1 Goal / Goal Update *independent with HEP 01-05-25 d/c goal met Target Visit 10 Progress Met PT Problem 2 PT Problem #2 Pain PT Goal 1 Goal / Goal Update 1* pt report pain in neck of 3/10 at worst 2* radicular pain into L UE to elbow at worst 3* pt report with sleeping, awaken 1x/night due to pain 01-05-25 d/c goal 1 met; #2 to fingers, #3 1-2x/night Target Visit 10 Progress Partially Met PT Problem 3 PT Problem #3 Impaired Flexibility PT Goal 1 Goal / Goal Update increase cervical rotation to improve driving and home activities 1* rotation R 50' 2* rotation L 50' 01-05-25 d/c goals met Target Visit 10 Progress Met PT Problem 4 PT Problem #4 Impaired Strength PT Goal 1 Goal / Goal Update 1*increase L collections curator strength with dynamometer 3rd slot: 40# 2* L shoulder flexion strength of 4/5 01-05-25 d/c goals not met; #1 is 25# and #2 is 4-/5 Target Visit 10 Progress Not Met
--- NOTE | 2025-01-05 09:56 | PTOPDC ---
Assessment and note entered by Nedra Camarena, PT Assessment Status Discharge ICD-10 Condition Codes (PT) Radiculopathy, cervical M54.13 Onset 09-20-24 Subjective Information doing better-- less pain and less headaches; been doing the exercises and watching my posture and neck position; daughter has to help her with vacuuming, she cannot do yet; Reported Pain Level Pain Score 1: Self Report Pain Score 1: Self Report Additional Pain Score Comments pain range in the past week 1-3/10; L upper traps; intermittent ~ 20% day, little tingle into L forearm, all fingers and hand have headaches 2-3 x/day, last 5 minutes--do stretching, massage head, vicks over areas increase pain: end of day, sitting 1 hour; decrease pain: stretching, change positions, muscle relaxers, tylenol, vicks rub cream sleeping awaken 1-2x/night due to neck pain also reports pain in her back Assessment PT Clinical Summary Amanda has received 6 PT sessions. With today's assessment, compared to initial evaluation: pain rating from 1-5/10 to 1-3/10; radicular pain into L hand ~25% to 20% day; headaches occur daily to 2-3x/day lasting 5 minutes; awakening from sleeping 2-3 to 1-2 x/ night; active ROM: L shoulder from 105 to 120' and cervical rotation to R from 30' to 60' and L from 30' to 70'; air control/anti air warfare officer dynamometer on L from 20 to 25#; functional strength of L shoulder: flexion and abduction with 1# hand wt to 90' and elbow flexion/extension with 1# and with the R use of 2# hand wt; education completed for HEP, posture and pain control techniques. The goals were partially met. Discharge PT. She is to continue with her HEP and monitor her posture. Plan of Care PT Services Indicated No
== END 2025-01-05 11:14 | disposition home or self-care (01) ==
LOC: ANHPT 09:00
PROVIDERS: PCP Internal Medicine; Visit Provider Clinical Nurse Specialist
DX: M54.12 Radiculopathy, cervical region (principal)
CPT/HCPCS: 97110; 97140; 97161; 97530

== ENCOUNTER 2025-04-17 08:22 | Emergency (ER) | payer MEDICARE, SELFPAY ==
[2025-04-17 08:31] VITALS: BP 171/98; PULSE 95; RESP 16; TEMP 36.4; O2SAT 100
--- NOTE | 2025-04-17 08:56 | ED.FEMALEGU ---
HPI - Female Genitourinary General Chief complaint: Urogenital-Female Stated complaint: Uti Symptoms Time Seen by Provider: 04/17/25 08:42 Source: patient and RN notes reviewed Mode of arrival: ambulatory Limitations: no limitations History of Present Illness HPI Narrative: 64-year-old female patient presents today complaining of 4 day history of low back pain that radiates laterally, right greater than left. She is also complaining of some suprapubic discomfort, urinary frequency, and urgency that started a few days ago. Denies dysuria or hematuria. 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 No OTC treatment prior to arrival. Denies numbness or tingling in the extremities. No loss of bowel or bladder control. Related Data Home Medications ?Medication ?Instructions ?Recorded ?Confirmed ?Last Taken ?Type apple cider vinegar 500 mg tablet 1,000 - 1,500 mg PO DAILY 10/26/19 04/11/25 Unknown History coenzyme Q10 100 mg capsule (Co 100 mg PO DAILY 10/26/19 04/11/25 Unknown History Q-10) flaxseed oil-omega 3,6,9-fatty 1 cap PO DAILY 10/26/19 04/11/25 Unknown History acids 1,200 mg-540 mg-132 mg capsule magnesium 250 mg tablet 250 mg PO DAILY 10/26/19 04/11/25 Unknown History ndeubwto-jus-ruhb 18 mg-FA 400 1 tablet PO DAILY 10/26/19 04/11/25 Unknown History mcg-calcium 500 mg-vit K 50 mcg tablet (Women's Multivitamin) selenium 200 mcg capsule 200 mcg PO DAILY 10/26/19 04/11/25 Unknown History cholecalciferol (vitamin D3) 25 5,000 unit PO DAILY 02/28/21 04/11/25 Unknown History mcg (1,000 unit) capsule black seed oil See Rx Instructions BYMOUTH 12/20/21 04/11/25 Unknown History .COMPLEX naproxen sodium 220 mg capsule 220 mg PO BID PRN 02/02/24 04/11/25 Unknown History (Aleve) ahcc 1 cap BYMOUTH DAILY 07/01/24 04/11/25 Unknown History omeprazole 20 mg capsule,delayed 20 mg PO DAILY 01/20/25 04/11/25 Unknown History release Allergies Allergy/AdvReac Type Severity Reaction Status Date / Time indomethacin Allergy Severe Hives Verified 04/17/25 08:59 Iodinated Contrast Media Allergy Severe Anaphylactic Verified 04/17/25 08:59 Shock iohexol (From contrast - CT, Allergy Severe Anaphylaxis Verified 04/17/25 08:59 X-RAY) shellfish derived Allergy Severe Anaphylactic Verified 04/17/25 08:59 Shock Sulfa (Sulfonamide Allergy Severe Anaphylactic Verified 04/17/25 08:59 Antibiotics) Shock bacitracin Allergy Intermediate Itching Verified 04/17/25 08:59 polymyxin B Allergy Intermediate Swelling Verified 04/17/25 08:59 tramadol Allergy Intermediate Hives Verified 04/17/25 08:59 gramicidin D Allergy Mild Itching Verified 04/11/25 09:24 neomycin Allergy Mild Itching Verified 04/11/25 09:24 iodine Allergy Unknown Anaphylactic Verified 04/11/25 09:24 Shock Penicillins Allergy Unknown Anaphylactic Verified 04/11/25 09:24 Shock PMFSH Past Medical History Medical History Cervical radiculopathy Screening for lipoid disorders Hyperglycemia Bronchitis Frequent UTI Urinary incontinence Pneumonia Loss of smell Hospital discharge follow-up Elevated liver enzymes COVID-19 Screening for colon cancer Postmenopausal Screening for breast cancer Hx of ovarian cancer Asthma with exacerbation Elevated glucose level Screening for metabolic disorder Vitamin D deficiency Fatigue Obesity Generalized headaches URBANO (obstructive sleep apnea) Seasonal allergies Cough Dyspnea on exertion Lower extremity pain Elevated BP without diagnosis of hypertension Family History Family History Sibling Family history of multiple sclerosis Mother Family history of lung disease Family history of tremor Family history of multiple sclerosis Father Patient's father is in good health Other Family history of cardiovascular disease Family history of heart disease in male family member before age 55 Social History Social History Social History: Caffeine- tea Smoking status: Never smoker Alcohol intake: never Substance use: never Substance use type: does not use Lack of Transportation: No Lack of Food: Never True Current Housing: I Have Housing Concerned About Future Housing: No Difficulty Paying Gas/Electric Bills: No Difficulty Paying for Meds: YES Currently Unemployed: No Education: High School Diploma/GED Difficulty w/ Childcare or Family Care: No Comments Reviewed Exam Narrative: GENERAL: Well-appearing, over-nourished, and in no acute distress. HEAD: Normocephalic, atraumatic. EYES: EOMI. No redness or drainage. Conjunctivae normal. ENT: Mucous membranes pink and moist. NECK: Normal AROM. CHEST: No respiratory distress. Clear to auscultation. HEART: Regular rate and rhythm. No murmur appreciated. ABDOMEN: Soft, nondistended, normal active bowel sounds.+ mild suprapubic tenderness without rebound or guarding. MUSCULOSKELETAL: Generalized muscular tenderness of the lumbar spine that extends to the bilateral SI joints. Pain with range of motion. Distal sensation intact. Capillary refill normal. Saddle sensation intact. EXTREMITIES: Normal range of motion. No edema. SKIN: Warm, dry, no rash. Capillary refill normal. Normal skin turgor. NEURO: No focal deficits. Alert and oriented x3. Gait steady with cane. PSYCH: Normal affect. No signs of depression or anxiety. Course Course Level of Care: Express Care Visit Vital Signs Vital signs: Vital Signs Temperature 97.5 F L 04/17/25 08:31 Pulse Rate 95 04/17/25 08:31 Respiratory Rate 16 04/17/25 08:31 Blood Pressure 171/98 H 04/17/25 08:31 Pulse Oximetry 100 04/17/25 08:31 Temperature 97.5 F L 04/17/25 08:31 Pulse Rate 95 04/17/25 08:31 Respiratory Rate 16 04/17/25 08:31 Blood Pressure 171/98 H 04/17/25 08:31 Pulse Oximetry 100 04/17/25 08:31 Reviewed MDM - Female Genitourinary MDM Narrative Medical decision making narrative: 64-year-old female patient presents today complaining of 4 day history of low back pain that radiates laterally, right greater than left. She is also complaining of some suprapubic discomfort, urinary frequency, and urgency that started a few days ago. Denies dysuria or hematuria. 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 No OTC treatment prior to arrival. Denies numbness or tingling in the extremities. No loss of bowel or bladder control. Upon exam,+ mild suprapubic tenderness without rebound or guarding.Generalized muscular tenderness of the lumbar spine that extends to the bilateral SI joints. Pain with range of motion. Distal sensation intact. Capillary refill normal. Saddle sensation intact. Urinalysis shows 2+ protein, trace ketones, and 1+ bilirubin. Culture pending. Patient will be started on some Macrobid for her mild UTI symptoms. Her severe back pain is likely due to muscle strain due to lifting. Will start some Flexeril 5 mg and have been advised to not lift heavy child. She can also take some [id number] Tylenol or ibuprofen if needed. Patient agrees with plan. Vital signs stable. Anticipatory guidance given. Differential Diagnosis Differential diagnosis: Likely urinary tract infection, cystitis and other (Low back strain, pyelonephritis, sciatica) Lab Data Attestation: I reviewed the patient's lab results. Lab results narrative: Urinalysis Glucose negative Bilirubin 1+ Ketones trace Specific gravity 1.0 2 0 Blood negative PH 6.0 Protein 2+ Nitrites Negative Leukocytes negative Critical Care Time Critical Care Time Critical Care Time: No Discharge Plan Discharge Clinical Impression: UTI (urinary tract infection) Qualifiers: Urinary tract infection type: acute cystitis Hematuria presence: without hematuria Qualified Code(s): N30.00 - Acute cystitis without hematuria Low back strain Qualifiers: Encounter type: initial encounter Qualified Code(s): S39.012A - Strain of muscle, fascia and tendon of lower back, initial encounter Patient Disposition: Home Condition: Stable Instructions: Antibiotic Form, Low Back Strain (ED), Urinary Tract Infection in Older Adults (ED) Additional Instructions: Your urine shows possible infection today. Take Macrobid as prescribed until gone. Your urine will be sent of for a culture to identify what type of bacteria is causing your infection. If the culture shows that your medication will not get rid of your infection, you will be notified and a new antibiotic will be called in for you. If your symptoms worsen to include fever, sweats, chills, nausea, vomiting, severe abdominal or back pain, please go to the ER for further evaluation. Your severe back pain is likely due to strain from lifting. Decrease heavy lifting. Take Tylenol or ibuprofen for discomfort. Take the muscle relaxer for spasm. Do not drive within 8 hours of taking the Flexeril as it can make you drowsy. Use a heating pad to help relax your muscles. Follow-up with your PCP in 5-7 days if symptoms are not improving. Patient Language: [place]an Prescriptions: New nitrofurantoin monohyd/m-cryst [Macrobid] 100 mg capsule 100 mg PO Q12H 5 Days Qty: 10 0RF Rx Instructions: must administer with a meal/food cyclobenzaprine 5 mg tablet 5 mg PO TID PRN (Reason: muscle spasm) Qty: 20 0RF No Action cholecalciferol (vitamin D3) 25 mcg (1,000 unit) capsule 5,000 unit PO DAILY naproxen sodium [Aleve] 220 mg capsule 220 mg PO BID PRN albuterol sulfate 2.5 mg /3 mL (0.083 %) solution for nebulization 2.5 mg inhalation Q4-6H PRN (Reason: shortness of breath or wheezing) Qty: 180 2RF apple cider vinegar 500 mg tablet 1,000 - 1,500 mg PO DAILY selenium 200 mcg capsule 200 mcg PO DAILY coenzyme Q10 [Co Q-10] 100 mg capsule 100 mg PO DAILY flaxseed-omega3,6,9-fatty acid 1,200-540-132 mg capsule 1 cap PO DAILY Women's Multivitamin 18 mg-400 mcg- 500 mg-50 mcg tablet 1 tablet PO DAILY magnesium 250 mg tablet 250 mg PO DAILY black seed oil See Rx Instructions BYMOUTH .COMPLEX Rx Instructions: 1 tablet once daily orally; ahcc 1 cap BYMOUTH DAILY omeprazole 20 mg capsule,delayed release(DR/EC) 20 mg PO DAILY epinephrine 0.3 mg/0.3 mL auto-injector 0.3 mg IM ONCE Qty: 2 0RF Rx Instructions: as a single dose; may repeat once albuterol sulfate 90 mcg/actuation HFA aerosol inhaler 1 - 2 puff INHALATION Q4-6H PRN (Reason: shortness of breath or wheezing) Qty: 25.5 3RF fluticasone propionate [Flonase Allergy Relief] 50 mcg/actuation spray,suspension 1 spray intranasal Q12H Qty: 48 1RF Rx Instructions: administer into each nostril lisinopril 40 mg tablet 40 mg PO DAILY Qty: 100 1RF Follow-up/Referrals: Yablonsky,Daniel B., DO [Primary Care Provider, Internal Medicine] Time of Disposition: 09:08
[2025-04-18 11:51] LABS: EDUAAPPEAR Clear; EDUABILI 1+ (Negative); EDUABLOOD Negative (Negative); EDUACOLOR1 Yellow; EDUAGLUCOSE Negative (Negative); EDUAKETONE Trace (Negative); EDUALEUKO Negative (Negative); EDUANITRATE Negative (Negative); EDUAPH 6.0; EDUAPROTEIN 2+ (Negative); EDUASPGRAVITY 1.020; EDUAUROBILI 0.2
== END 2025-04-17 09:10 | disposition home or self-care (01) ==
PROVIDERS: Emergency Provider Nurse Practitioner; PCP Internal Medicine
DX: N30.00 Acute cystitis without hematuria (principal); S39.012A Strain of muscle, fascia and tendon of lower back, initial encounter; X50.3XXA Overexertion from repetitive movements, initial encounter; J45.909 Unspecified asthma, uncomplicated; E66.9 Obesity, unspecified; Z68.45 Body mass index [BMI] 70 or greater, adult; M54.12 Radiculopathy, cervical region; E55.9 Vitamin D deficiency, unspecified; Z86.16 Personal history of COVID-19; Z85.43 Personal history of malignant neoplasm of ovary
CPT/HCPCS: 81003; 87086; 99213; G0463